=== PATIENT | male | born 1940 | race Caucasian/White ===

== ENCOUNTER → 2016-09-08 | Outpatient (CLI) | payer OTHER ==
[~2016-09-08] MED LIST: ALBU18; ASPI-231 OR; [UNRECOGNIZED DRUG - OTHER]
== END | disposition home or self-care (01) ==
LOC: XYW 10:41
PROVIDERS: ATTEND Internal Medicine Cardiovascular Disease
DX: I08.2 Rheumatic disorders of both aortic and tricuspid valves (principal); I31.3 Pericardial effusion (noninflammatory); Z95.0 Presence of cardiac pacemaker
CPT/HCPCS: 93306

== ENCOUNTER → 2016-09-08 | Outpatient (CLI) | payer OTHER ==
[2016-09-08 16:16] LABS: Basophils # (auto) 0 uL; Basophils % (auto) 0.3 % (0.0-2.0); Eosinophils # (auto) 0.4 uL; Eosinophils % (auto) 4.4 % (0.0-7.0); Hematocrit 42.5 % (41.0-53.0); Hemoglobin 14.3 g/dL (13.5-17.5); Lymphocytes # (auto) 2.4 uL; Lymphocytes % (auto) 24.4 % (10.0-50.0); Mean Corpuscular Hgb Conc. 33.5 g/dL (32.0-36.0); Mean Corpuscular Volume 86.5 fL (80.0-100.0); Mean Platelet Volume 7.2 fL (7.4-10.4); Monocytes # (auto) 0.8 uL; Monocytes % (auto) 8.1 % (0.0-12.0); Neutrophils # (auto) 6.2 uL; Neutrophils % (auto) 62.8 % (37.0-80.0); Platelet Count (auto) 262 10^3/uL (140-450); Red Cell Distribution Width 14.5 % (11.6-16.0); White Blood Cell 9.9 10^3/uL (4.4-10.8)
[2016-09-08 16:30] LABS: Urine Bilirubin Negative (Negative); Urine Blood Negative /uL (Negative); Urine Color Yellow (Yellow); Urine Ketone Negative (Negative); Urine Nitrite Negative (Negative); Urine RBC <1 /hpf (0 - 3); Urine Urobilinogen Normal (Negative)
[2016-09-08 16:31] LABS: Urine Glucose 4+ mg/dL (Normal)
[2016-09-08 16:32] LABS: Albumin 3.8 g/dL (3.4-5.0); Calcium 9.4 mg/dL (8.5-10.1); Potassium 4.2 mmol/L (3.5-5.1)
[2016-09-08 16:34] LABS: BUN/Creatinine Ratio 18.8
[2016-09-08 16:36] LABS: INR 0.94 (0.9-1.15); Partial Thromboplastin Time 26.1 sec (22.64-33.71); Prothrombin Time 10.1 sec (9.37-12.3)
[2016-09-08 16:41] LABS: Bilirubin, Total 0.6 mg/dL (0.2-1.0); Total Protein 7.9 g/dL (6.4-8.2)
== END | disposition home or self-care (01) ==
LOC: LAB 15:47
DX: H25.12 Age-related nuclear cataract, left eye (principal)
CPT/HCPCS: 36415; 80053; 81001; 85025; 85610; 85730

== ENCOUNTER 2017-05-11 10:55 | Inpatient (IN) | payer OTHER ==
[~2017-05-11] VITALS: Ht 172.7 cm; Wt 77.6 kg
[2017-05-11] MEDS ORDERED: SODIUM CHLORIDE 0.9% 2,000 ML IV ONE (11:30)
[2017-05-11 13:11] LABS: Basophils # (auto) 0 uL; Basophils % (auto) 0.2 % (0.0-2.0); Eosinophils # (auto) 0 uL; Hematocrit 52.8 % (41.0-53.0); Hemoglobin 16.8 g/dL (13.5-17.5); Lymphocytes # (auto) 1.1 uL; Lymphocytes % (auto) 9.1 % (10.0-50.0); Mean Corpuscular Hemoglobin 29.2 pg (28.0-32.0); Mean Corpuscular Hgb Conc. 31.8 g/dL (32.0-36.0); Mean Corpuscular Volume 91.7 fL (80.0-100.0); Monocytes # (auto) 0.8 uL; Monocytes % (auto) 6.2 % (0.0-12.0); Neutrophils # (auto) 10.4 uL; Neutrophils % (auto) 84.5 % (37.0-80.0); Nucleated Red Blood Cells % 0.1 %; Platelet Count (auto) 261 10^3/uL (140-450); Red Blood Cells 5.76 10^6/uL (4.5-5.90); Red Cell Distribution Width 15.2 % (11.8-14.3); White Blood Cell 12.3 10^3/uL (4.4-10.8)
[2017-05-11 13:20] LABS: INR 1.05 (0.9-1.15); Partial Thromboplastin Time 24.6 sec (22.64-33.71); Prothrombin Time 11.5 sec (9.37-12.3)
[2017-05-11 13:21] LABS: Albumin 3.8 g/dL (3.4-5.0); BUN/Creatinine Ratio 35.1; Bilirubin, Total 0.7 mg/dL (0.2-1.0); Calcium 9.9 mg/dL (8.5-10.1); Potassium 4.1 mmol/L (3.5-5.1); Total Protein 8.6 g/dL (6.4-8.2)
[2017-05-11 13:24] LABS: Lactic Acid w/Reflex 2.3 mmol/L (0.4-2.0)
[2017-05-11] MEDS ORDERED: InsuLIN R (HUMAN) 100 UNITS in SODIUM CHL 0.9% 99 ML IV SCH ×5 (14:08→14:37)
[2017-05-11] MEDS ORDERED: DEXTROSE (50%) 50ML SYRG IV PRN ×2 (14:15→14:45)
[2017-05-11 14:18] LABS: Urine Bacteria NONE SEEN /hpf (None Seen); Urine Blood Negative /uL (Negative); Urine Mucus FEW (None Seen); Urine Specific Gravity 1.029 (1.001-1.035); Urine WBC 1 /hpf (0 - 3)
[2017-05-11] MEDS ORDERED: MORPHINE SULF INJ 2 MG/ML SYRINGE 1ML IV PRN ×2 (14:45→15:00)
[2017-05-11] MEDS ORDERED: SOD CHL 0.45% 1,000 ML IV SCH (14:45)
[2017-05-11] MEDS ORDERED: ACETAMINOPHEN 500 MG TAB PO PRN (14:45)
[2017-05-11] MEDS ORDERED: TEMAZEPAM 15 MG CAP PO PRN (14:45)
[2017-05-11] MEDS ORDERED: HYDROcodone-ACET 5/325MG TAB PO PRN (14:45)
[2017-05-11] MEDS ORDERED: LORazepam 0.5 MG TAB PO PRN (14:45)
[2017-05-11] MEDS ORDERED: ALBUTEROL SULF 2.5 MG/0.5ML(0.5%) NEB SOLN NEB PRN (14:45)
[2017-05-11] MEDS ORDERED: PROMETHAZINE HCL 25 MG/ML 1ML IV PRN (14:45)
[2017-05-11] MEDS ORDERED: NITROGLYCERIN 0.4 MG SL TAB SL PRN (14:45)
[2017-05-11] MEDS ORDERED: ASPirin 81 mg TAB PO ONE (15:00)
[2017-05-11] MEDS ORDERED: ENALAPRIL MALEATE 2.5 MG TAB PO ONE (15:00)
[2017-05-11] MEDS ORDERED: ENOXAPARIN SOD 30 MG/0.3 ML SYRINGE SC ONE (15:00)
[2017-05-11] MEDS ORDERED: CARVEDILOL 3.125 MG TAB PO ONE (15:00)
[2017-05-11] MEDS: ACCU-CHEK COMFORT CURVE STRIP VI SCH ×6 (15:14→22:20)
[2017-05-11 19:38] LABS: Calcium 9.1 mg/dL (8.5-10.1)
[2017-05-11 19:41] LABS: BUN/Creatinine Ratio 38.6
[2017-05-11 19:46] LABS: Potassium 2.9 mmol/L (3.5-5.1)
[2017-05-11] MEDS: InsuLIN REG 1unit/0.01ml Soln (100units/ml) SC SCH (20:00)
[2017-05-11] MEDS ORDERED: POTASSIUM CHL 20MEQ/50ML 50 ML IV SCH (20:15)
[2017-05-11] MEDS ORDERED: SOD CHL 0.45% WITH 20MEQ KCL 1,000 ML IV ONE (20:15)
[2017-05-11] MEDS ORDERED: POTASSIUM CHLORIDE 40 MEQ in SOD CHL 0.45% 1,000 ML IV SCH (21:00)
[2017-05-11] MEDS: POTASSIUM CHL 20MEQ/50ML 50 ML IV SCH ×2 (21:05→23:32)
[2017-05-11 21:13] VITALS: BP 136/69
[2017-05-11] MEDS ORDERED: diphenhdrAMINE HCL 50 MG/1 ML VL ONE (21:38)
[2017-05-11] MEDS ORDERED: LORazepam 2MG/ML-1ML VIAL ONE (21:38)
[2017-05-11] MEDS ORDERED: LORazepam 2MG/ML-1ML VIAL IV ONE (21:45)
[2017-05-11] MEDS ORDERED: diphenhdrAMINE HCL 50 MG/1 ML VL IV ONE (21:45)
[2017-05-11] MEDS: ATORVASTATIN 20 MG TAB PO SCH (22:00)
[2017-05-11] MEDS: CARVEDILOL 3.125 MG TAB PO SCH (22:00)
[2017-05-11 22:43] LABS: BUN/Creatinine Ratio 37.8; Calcium 9.3 mg/dL (8.5-10.1); Potassium 3.5 mmol/L (3.5-5.1)
[2017-05-11] MEDS ORDERED: D5W/SOD CHL 0.45% 1,000 ML IV SCH ×2 (23:30)
[2017-05-12] MEDS: ACCU-CHEK COMFORT CURVE STRIP VI SCH ×8 (00:09→20:00)
[2017-05-12] MEDS: POTASSIUM CHL 20MEQ/50ML 50 ML IV SCH ×3 (00:15→13:02)
[2017-05-12 02:45] LABS: Basophils # (auto) 0.1 uL; Basophils % (auto) 0.5 % (0.0-2.0); Eosinophils # (auto) 0 uL; Hematocrit 45.4 % (41.0-53.0); Lymphocytes # (auto) 2.3 uL; Lymphocytes % (auto) 15.2 % (10.0-50.0); Mean Corpuscular Volume 87.8 fL (80.0-100.0); Monocytes # (auto) 1.2 uL; Monocytes % (auto) 7.9 % (0.0-12.0); Neutrophils # (auto) 11.7 uL; Neutrophils % (auto) 76.4 % (37.0-80.0); Platelet Count (auto) 212 10^3/uL (140-450); Red Blood Cells 5.17 10^6/uL (4.5-5.90); Red Cell Distribution Width 14.6 % (11.8-14.3); White Blood Cell 15.3 10^3/uL (4.4-10.8)
[2017-05-12 03:12] LABS: Alanine Aminotransferase 28 U/L (16-61); Albumin 3.2 g/dL (3.4-5.0); Alkaline Phosphatase 65 U/L (45-117); Anion Gap 8 (5-15); Aspartate Aminotransferase 18 U/L (15-37); BUN/Creatinine Ratio 45.9; Bilirubin, Total 0.9 mg/dL (0.2-1.0); Calcium 8.9 mg/dL (8.5-10.1); Carbon Dioxide 23 mmol/L (21-32); Chloride 131 mmol/L (98-107); Cholesterol 217 mg/dL (< 200); GFR African American 46 mL/min; GFR Non-African American 38 mL/min; Glucose 214 mg/dL (74-106); HDL Cholesterol 41 mg/dL (40-59); Potassium 3.2 mmol/L (3.5-5.1); Total Protein 7.1 g/dL (6.4-8.2); Triglycerides 426 mg/dL (< 150)
[2017-05-12 03:17] LABS: Blood Urea Nitrogen 85 mg/dL (7-18); Sodium 162 mmol/L (136-145)
[2017-05-12] MEDS ORDERED: DEXTROSE (50%) 50ML SYRG IV PRN (03:45)
[2017-05-12] MEDS ORDERED: SOD CHL 0.45% 1,000 ML IV SCH (03:45)
[2017-05-12] MEDS ORDERED: LORazepam 2MG/ML-1ML VIAL ONE (04:45)
[2017-05-12] MEDS ORDERED: diphenhdrAMINE HCL 50 MG/1 ML VL ONE (04:45)
[2017-05-12] MEDS ORDERED: POTASSIUM CHL 10% (20 MEQ/15ML) 15ml ORAL SOLN PO ONE ×2 (04:45→11:00)
[2017-05-12] MEDS ORDERED: diphenhdrAMINE HCL 50 MG/1 ML VL IV ONE (05:00)
[2017-05-12] MEDS ORDERED: LORazepam 2MG/ML-1ML VIAL IV ONE (05:00)
[2017-05-12] MEDS ORDERED: HALOPERIDOL LACTATE 5 MG/ML INJ VIAL IM ONE (05:15)
[2017-05-12] MEDS: InsuLIN REG 1unit/0.01ml Soln (100units/ml) SC SCH ×5 (05:17→16:04)
[2017-05-12] MEDS: D5W 5% 1,000 ML IV SCH ×3 (05:25→20:45)
[2017-05-12] MEDS ORDERED: POTASSIUM CHL 20MEQ/50ML 50 ML IV ONE (05:45)
[2017-05-12 06:22] LABS: Potassium 3.1 mmol/L (3.5-5.1)
[2017-05-12 06:27] LABS: BUN/Creatinine Ratio 41.1; Calcium 8.8 mg/dL (8.5-10.1)
[2017-05-12] MEDS ORDERED: ENOXAPARIN SOD 30 MG/0.3 ML SYRINGE SC SCH (10:00)
[2017-05-12] MEDS ORDERED: ENOXAPARIN SOD 40 MG/0.4 ML SYRINGE SC SCH (10:00)
[2017-05-12] MEDS: ASPirin 81 mg TAB PO SCH (10:45)
[2017-05-12] MEDS: CARVEDILOL 3.125 MG TAB PO SCH ×2 (10:45→22:37)
[2017-05-12] MEDS: ENALAPRIL MALEATE 2.5 MG TAB PO SCH (10:46)
[2017-05-12] MEDS: ENOXAPARIN SOD 40 MG/0.4 ML SYRINGE SC SCH (10:46)
[2017-05-12] MEDS ORDERED: cefTRIAXone 1GM/10ml IVPUSH 10 ML IV ONE (11:00)
[2017-05-12 11:28] LABS: BUN/Creatinine Ratio 40.2; Calcium 8.5 mg/dL (8.5-10.1)
[2017-05-12 16:27] LABS: Potassium 3.7 mmol/L (3.5-5.1)
[2017-05-12 16:28] LABS: Calcium 8.7 mg/dL (8.5-10.1)
[2017-05-12] MEDS ORDERED: LOVA40TA72 (17:28)
[2017-05-12] MEDS ORDERED: RAMI5CAP40 (17:28)
[2017-05-12] MEDS ORDERED: METF-370 (17:28)
[2017-05-12] MEDS ORDERED: GLIP-115 (17:28)
[2017-05-12] MEDS ORDERED: CARV3.1240 (17:28)
[2017-05-12] MEDS ORDERED: BAC09TP (17:28)
[2017-05-12] MEDS ORDERED: HCTZ25T (17:28)
[2017-05-12] MEDS ORDERED: DOXY100C2 (17:28)
[2017-05-12 17:50] VITALS: BP 144/58
[2017-05-12] MEDS: FREE WATER PO SCH ×2 (18:00→22:00)
[2017-05-12 19:00] LABS: BUN/Creatinine Ratio 35.1; Calcium 8.7 mg/dL (8.5-10.1); Potassium 3.7 mmol/L (3.5-5.1)
[2017-05-12 22:00] VITALS: BP_SYST 132; BP_DIAS 61; BP_DIAS 89
[2017-05-12] MEDS: ATORVASTATIN 20 MG TAB PO SCH (22:00)
[2017-05-12 22:24] LABS: BUN/Creatinine Ratio 36.9; Calcium 8.9 mg/dL (8.5-10.1)
[2017-05-13 02:16] LABS: BUN/Creatinine Ratio 37.9; Potassium 3.8 mmol/L (3.5-5.1)
[2017-05-13] MEDS: D5W 5% 1,000 ML IV SCH ×3 (03:58→20:29)
[2017-05-13] MEDS: ACCU-CHEK COMFORT CURVE STRIP VI SCH ×6 (04:00→20:29)
[2017-05-13] MEDS: InsuLIN REG 1unit/0.01ml Soln (100units/ml) SC SCH ×5 (04:00→20:29)
[2017-05-13 05:00] VITALS: BP 128/56
[2017-05-13] MEDS: FREE WATER PO SCH ×5 (06:42→22:35)
[2017-05-13 09:00] VITALS: BP 141/67
[2017-05-13] MEDS: ASPirin 81 mg TAB PO SCH (09:37)
[2017-05-13] MEDS: ENOXAPARIN SOD 40 MG/0.4 ML SYRINGE SC SCH (09:37)
[2017-05-13] MEDS: cefTRIAXone 1GM/10ml IVPUSH 10 ML IV SCH (09:38)
[2017-05-13] MEDS: ENALAPRIL MALEATE 2.5 MG TAB PO SCH (09:38)
[2017-05-13] MEDS: CARVEDILOL 3.125 MG TAB PO SCH ×2 (09:39→22:35)
[2017-05-13 10:17] LABS: Calcium 8.7 mg/dL (8.5-10.1); Potassium 4.2 mmol/L (3.5-5.1)
[2017-05-13] MEDS ORDERED: DEXTROSE (50%) 50ML SYRG IV PRN (10:30)
[2017-05-13] MEDS: INSULIN DETEMIR(LEVEMIR) 1unit/0.01ml Soln (100units/ml) SC SCH ×2 (10:45→22:43)
[2017-05-13 13:00] VITALS: BP 133/58
[2017-05-13 14:37] LABS: BUN/Creatinine Ratio 33.1; Calcium 8.9 mg/dL (8.5-10.1); Potassium 4.2 mmol/L (3.5-5.1)
[2017-05-13 17:10] VITALS: BP 135/60
[2017-05-13 18:29] LABS: BUN/Creatinine Ratio 38.6; Potassium 3.8 mmol/L (3.5-5.1)
[2017-05-13 22:00] VITALS: BP 146/46
[2017-05-13] MEDS: ATORVASTATIN 20 MG TAB PO SCH (22:36)
[2017-05-13 22:42] LABS: BUN/Creatinine Ratio 35.8; Calcium 8.5 mg/dL (8.5-10.1); Potassium 3.9 mmol/L (3.5-5.1)
[2017-05-14] MEDS: InsuLIN REG 1unit/0.01ml Soln (100units/ml) SC SCH ×7 (00:22→23:38)
[2017-05-14] MEDS: ACCU-CHEK COMFORT CURVE STRIP VI SCH ×7 (01:51→23:38)
[2017-05-14 01:59] VITALS: BP 123/53
[2017-05-14] MEDS: FREE WATER PO SCH ×6 (02:25→22:01)
[2017-05-14] MEDS: D5W 5% 1,000 ML IV SCH (04:45)
[2017-05-14 04:58] VITALS: BP 128/60
[2017-05-14] MEDS: INSULIN DETEMIR(LEVEMIR) 1unit/0.01ml Soln (100units/ml) SC SCH (06:41)
[2017-05-14 08:36] LABS: Albumin 2.7 g/dL (3.4-5.0); BUN/Creatinine Ratio 33.9; Calcium 8.7 mg/dL (8.5-10.1); Potassium 4.1 mmol/L (3.5-5.1)
[2017-05-14 08:39] LABS: Bilirubin, Total 0.8 mg/dL (0.2-1.0); Total Protein 6.7 g/dL (6.4-8.2)
[2017-05-14 08:56] LABS: Basophils # (auto) 0 uL; Basophils % (auto) 0.1 % (0.0-2.0); Eosinophils # (auto) 0.2 uL; Eosinophils % (auto) 1.5 % (0.0-7.0); Hematocrit 42.4 % (41.0-53.0); Lymphocytes # (auto) 1.3 uL; Monocytes # (auto) 0.5 uL; Neutrophils # (auto) 8.1 uL; Neutrophils % (auto) 80.4 % (37.0-80.0); Nucleated Red Blood Cells % 0.1 %; Platelet Count (auto) 124 10^3/uL (140-450); Red Blood Cells 4.82 10^6/uL (4.5-5.90); White Blood Cell 10.1 10^3/uL (4.4-10.8)
[2017-05-14 09:47] VITALS: BP 155/78
[2017-05-14] MEDS: ASPirin 81 mg TAB PO SCH (10:58)
[2017-05-14] MEDS: ENOXAPARIN SOD 40 MG/0.4 ML SYRINGE SC SCH (10:58)
[2017-05-14] MEDS: ENALAPRIL MALEATE 2.5 MG TAB PO SCH (10:58)
[2017-05-14] MEDS: CARVEDILOL 3.125 MG TAB PO SCH ×2 (10:59→22:02)
[2017-05-14] MEDS: cefTRIAXone 1GM/10ml IVPUSH 10 ML IV SCH (10:59)
[2017-05-14 12:35] VITALS: BP 131/66
[2017-05-14] MEDS: SOD CHL 0.45% 1,000 ML IV SCH ×2 (17:04→21:00)
[2017-05-14 17:07] VITALS: BP 127/59
[2017-05-14] MEDS: INSULIN 70/30 1unit/0.01ml Susp (100units/ml) SC SCH (17:25)
[2017-05-14 22:00] VITALS: BP 130/59
[2017-05-14] MEDS: ATORVASTATIN 20 MG TAB PO SCH (22:02)
[2017-05-15] MEDS: FREE WATER PO SCH ×5 (01:37→18:00)
[2017-05-15] MEDS: ACCU-CHEK COMFORT CURVE STRIP VI SCH ×4 (03:39→15:53)
[2017-05-15] MEDS: InsuLIN REG 1unit/0.01ml Soln (100units/ml) SC SCH ×4 (03:40→15:53)
[2017-05-15] MEDS: SOD CHL 0.45% 1,000 ML IV SCH ×2 (04:22→17:00)
[2017-05-15 05:00] VITALS: BP 108/60
[2017-05-15 07:58] LABS: Basophils # (auto) 0 uL; Basophils % (auto) 0.2 % (0.0-2.0); Eosinophils # (auto) 0.3 uL; Eosinophils % (auto) 4.3 % (0.0-7.0); Hematocrit 38.9 % (41.0-53.0); Hemoglobin 12.9 g/dL (13.5-17.5); Lymphocytes # (auto) 1.7 uL; Lymphocytes % (auto) 22.2 % (10.0-50.0); Mean Corpuscular Hemoglobin 29.2 pg (28.0-32.0); Mean Corpuscular Hgb Conc. 33.2 g/dL (32.0-36.0); Mean Corpuscular Volume 88.2 fL (80.0-100.0); Monocytes # (auto) 0.5 uL; Monocytes % (auto) 6.6 % (0.0-12.0); Neutrophils # (auto) 5.1 uL; Neutrophils % (auto) 66.7 % (37.0-80.0); Nucleated Red Blood Cells % 0.1 %; Platelet Count (auto) 94 10^3/uL (140-450); Red Blood Cells 4.41 10^6/uL (4.5-5.90); Red Cell Distribution Width 14.4 % (11.8-14.3); White Blood Cell 7.7 10^3/uL (4.4-10.8)
[2017-05-15 08:00] VITALS: BP 131/65
[2017-05-15 08:07] LABS: Calcium 7.7 mg/dL (8.5-10.1); Potassium 3.9 mmol/L (3.5-5.1)
[2017-05-15 08:29] LABS: BUN/Creatinine Ratio 29.5
[2017-05-15] MEDS: INSULIN 70/30 1unit/0.01ml Susp (100units/ml) SC SCH ×2 (08:48→18:00)
[2017-05-15] MEDS: cefTRIAXone 1GM/10ml IVPUSH 10 ML IV SCH (09:04)
[2017-05-15] MEDS: ENALAPRIL MALEATE 2.5 MG TAB PO SCH (09:05)
[2017-05-15] MEDS: CARVEDILOL 3.125 MG TAB PO SCH (09:05)
[2017-05-15] MEDS: ENOXAPARIN SOD 40 MG/0.4 ML SYRINGE SC SCH (09:15)
[2017-05-15] MEDS: ASPirin 81 mg TAB PO SCH (09:18)
[2017-05-15] MEDS ORDERED: MULTIPLE VITAMIN TAB PO SCH (10:00)
[2017-05-15] MEDS ORDERED: ASCORBIC ACID 500 MG TAB PO SCH (10:00)
[2017-05-15 12:00] VITALS: BP 125/56
[2017-05-15 15:56] VITALS: BP 125/56
== END 2017-05-15 18:15 | disposition home or self-care (01) | DRG 871 ==
LOC: ER 10:55 → EDBD 10:55 → TELE 10:56 → TELE-WESTW 05-12 17:35
PROVIDERS: ADMIT Internal Medicine; ATTEND Internal Medicine
DX: A41.9 Sepsis, unspecified organism (principal); G93.41 Metabolic encephalopathy; E11.10 Type 2 diabetes mellitus with ketoacidosis without coma; N17.9 Acute kidney failure, unspecified; J96.10 Chronic respiratory failure, unspecified whether with hypoxia or hypercapnia; J18.9 Pneumonia, unspecified organism; E11.21 Type 2 diabetes mellitus with diabetic nephropathy; E11.40 Type 2 diabetes mellitus with diabetic neuropathy, unspecified; E87.0 Hyperosmolality and hypernatremia; E87.1 Hypo-osmolality and hyponatremia; I42.9 Cardiomyopathy, unspecified; I47.1 Supraventricular tachycardia; E78.5 Hyperlipidemia, unspecified; E86.0 Dehydration; I11.0 Hypertensive heart disease with heart failure; I25.10 Atherosclerotic heart disease of native coronary artery without angina pectoris; I35.1 Nonrheumatic aortic (valve) insufficiency; B34.9 Viral infection, unspecified; J20.9 Acute bronchitis, unspecified; I50.9 Heart failure, unspecified; F41.9 Anxiety disorder, unspecified; G47.00 Insomnia, unspecified; I35.0 Nonrheumatic aortic (valve) stenosis; I70.0 Atherosclerosis of aorta; J44.9 Chronic obstructive pulmonary disease, unspecified; Z79.4 Long term (current) use of insulin; Z82.49 Family history of ischemic heart disease and other diseases of the circulatory system; Z83.3 Family history of diabetes mellitus; Z85.828 Personal history of other malignant neoplasm of skin; Z87.891 Personal history of nicotine dependence; Z99.81 Dependence on supplemental oxygen; Z88.0 Allergy status to penicillin; Z91.018 Allergy to other foods; Z79.899 Other long term (current) drug therapy; Z80.8 Family history of malignant neoplasm of other organs or systems; Z95.810 Presence of automatic (implantable) cardiac defibrillator
CPT/HCPCS: 36415; 36600; 70450; 71045; 80048; 80053; 80061; 81001; 82550; 82805; 82962; 83036; 83605; 83735; 83880; 83930; 84443; 84484; 85025; 85610; 85730; 87040; 87086; 93005; 93306; 94640; 94761; 96361; 96365; J1815; J3480

== ENCOUNTER 2017-06-04 14:16 | Emergency (ER) | payer OTHER ==
[~2017-06-04] VITALS: Ht 172.7 cm; Wt 79.4 kg
[~2017-06-04 14:16] MED LIST changes: +BAC09TP; +CARV3.1240; +DOXY100C2; +GLIP-115; +HCTZ25T; +LOVA40TA72; +METF-370; +RAMI5CAP40
[2017-06-04 15:51] LABS: Basophils # (auto) 0 uL; Basophils % (auto) 0.3 % (0.0-2.0); Eosinophils # (auto) 0.1 uL; Eosinophils % (auto) 1.5 % (0.0-7.0); Hematocrit 42.6 % (41.0-53.0); Hemoglobin 14.9 g/dL (13.5-17.5); Lymphocytes # (auto) 2.1 uL; Lymphocytes % (auto) 22.7 % (10.0-50.0); Mean Corpuscular Hemoglobin 29.9 pg (28.0-32.0); Mean Corpuscular Hgb Conc. 35.1 g/dL (32.0-36.0); Mean Corpuscular Volume 85.2 fL (80.0-100.0); Monocytes # (auto) 0.6 uL; Monocytes % (auto) 6.2 % (0.0-12.0); Neutrophils # (auto) 6.3 uL; Neutrophils % (auto) 69.3 % (37.0-80.0); Nucleated Red Blood Cells % 0.2 %; Platelet Count (auto) 221 10^3/uL (140-450); Red Blood Cells 4.99 10^6/uL (4.5-5.90); Red Cell Distribution Width 14.9 % (11.8-14.3); White Blood Cell 9.1 10^3/uL (4.4-10.8)
[2017-06-04] MEDS ORDERED: SODIUM CHLORIDE 0.9% 1,000 ML IV ONE ×2 (15:57→16:21)
[2017-06-04 16:11] LABS: BUN/Creatinine Ratio 23.1; Calcium 9.6 mg/dL (8.5-10.1); Potassium 4.5 mmol/L (3.5-5.1)
[2017-06-04 16:33] LABS: Magnesium 2.5 mg/dL (1.6-2.6)
[2017-06-04 17:05] LABS: Urine Bacteria NONE SEEN /hpf (None Seen); Urine Blood Negative /uL (Negative); Urine Specific Gravity 1.033 (1.001-1.035); Urine WBC <1 /hpf (0 - 3)
[2017-06-04] MEDS ORDERED: InsuLIN REG 1unit/0.01ml Soln (100units/ml) IV ONE (17:45)
[2017-06-04] MEDS ORDERED: NovoloG Insulin 1unit/0.01ml Soln (100units/ml) SC ONE (17:45)
[2017-06-04 19:25] VITALS: BP 118/57
== END 2017-06-04 20:47 | disposition home or self-care (01) ==
LOC: ER 14:16
DX: I11.0 Hypertensive heart disease with heart failure (principal); E11.65 Type 2 diabetes mellitus with hyperglycemia; I50.9 Heart failure, unspecified; J44.9 Chronic obstructive pulmonary disease, unspecified; Z95.0 Presence of cardiac pacemaker; Z88.0 Allergy status to penicillin; Z91.018 Allergy to other foods; Z79.899 Other long term (current) drug therapy; Z79.4 Long term (current) use of insulin; Z87.891 Personal history of nicotine dependence
CPT/HCPCS: 36415; 71046; 80053; 81001; 82962; 83735; 84443; 84484; 85025; 93005; 96361; 96372; 96374; 99285; J1815; J7030

== ENCOUNTER → 2018-05-11 | Outpatient (CLI) | payer OTHER ==
[2018-05-11 09:03] LABS: Basophils # (auto) 0 uL; Basophils % (auto) 0.3 % (0.0-2.0); Eosinophils # (auto) 0.2 uL; Eosinophils % (auto) 2.6 % (0.0-7.0); Hematocrit 46.3 % (41.0-53.0); Hemoglobin 15.5 g/dL (13.5-17.5); Lymphocytes % (auto) 23.8 % (10.0-50.0); Mean Corpuscular Hemoglobin 28.9 pg (28.0-32.0); Mean Corpuscular Hgb Conc. 33.5 g/dL (32.0-36.0); Mean Corpuscular Volume 86.3 fL (80.0-100.0); Monocytes # (auto) 0.5 uL; Monocytes % (auto) 5.9 % (0.0-12.0); Neutrophils # (auto) 5.6 uL; Neutrophils % (auto) 67.4 % (37.0-80.0); Nucleated Red Blood Cells % 0.1 %; Platelet Count (auto) 248 10^3/uL (140-450); Red Blood Cells 5.37 10^6/uL (4.5-5.90); Red Cell Distribution Width 14.8 % (11.8-14.3); White Blood Cell 8.4 10^3/uL (4.4-10.8)
[2018-05-11 09:39] LABS: Albumin 3.5 g/dL (3.4-5.0); Calcium 9.3 mg/dL (8.5-10.1); Potassium 4.4 mmol/L (3.5-5.1)
[2018-05-11 09:44] LABS: BUN/Creatinine Ratio 17.5
[2018-05-11 09:45] LABS: Bilirubin, Total 0.8 mg/dL (0.2-1.0); Total Protein 8.1 g/dL (6.4-8.2)
== END | disposition home or self-care (01) ==
LOC: LAB 08:41
DX: E11.65 Type 2 diabetes mellitus with hyperglycemia (principal); I11.0 Hypertensive heart disease with heart failure; I50.9 Heart failure, unspecified; J44.9 Chronic obstructive pulmonary disease, unspecified
CPT/HCPCS: 36415; 80053; 80061; 82043; 83036; 85025

== ENCOUNTER 2018-06-01 15:18 | Inpatient (IN) | payer OTHER ==
[~2018-06-01] VITALS: Ht 167.6 cm; Wt 74.2 kg
[2018-06-01] MEDS ORDERED: ALBUTEROL SULF 2.5 MG/0.5ML(0.5%) NEB SOLN NEB ONE (15:30)
[2018-06-01] MEDS ORDERED: IPRATROPIUM BROM 0.5 MG/2.5ML INH SOL NEB ONE (15:30)
[2018-06-01] MEDS ORDERED: methylPREDNISolone SOD SUCC 125 MG/2 ML VL IV ONE (15:30)
[2018-06-01 15:54] LABS: Basophils # (auto) 0 uL; Basophils % (auto) 0.2 % (0.0-2.0); Eosinophils # (auto) 0 uL; Eosinophils % (auto) 0.2 % (0.0-7.0); Hematocrit 46.5 % (41.0-53.0); Hemoglobin 15.7 g/dL (13.5-17.5); Lymphocytes # (auto) 1.2 uL; Lymphocytes % (auto) 9.7 % (10.0-50.0); Mean Corpuscular Hemoglobin 28.7 pg (28.0-32.0); Mean Corpuscular Hgb Conc. 33.8 g/dL (32.0-36.0); Mean Corpuscular Volume 84.8 fL (80.0-100.0); Monocytes # (auto) 0.7 uL; Monocytes % (auto) 5.4 % (0.0-12.0); Neutrophils # (auto) 10.7 uL; Neutrophils % (auto) 84.5 % (37.0-80.0); Nucleated Red Blood Cells % 0.1 %; Platelet Count (auto) 238 10^3/uL (140-450); Red Blood Cells 5.49 10^6/uL (4.5-5.90); Red Cell Distribution Width 14.4 % (11.8-14.3); White Blood Cell 12.7 10^3/uL (4.4-10.8)
[2018-06-01 16:03] LABS: Alanine Aminotransferase 28 U/L (16-61); Albumin 3.5 g/dL (3.4-5.0); Aspartate Aminotransferase 53 U/L (15-37); BUN/Creatinine Ratio 13.7; Blood Urea Nitrogen 16 mg/dL (7-18); Calcium 8.9 mg/dL (8.5-10.1); Carbon Dioxide 26 mmol/L (21-32); GFR African American > 60 mL/min; GFR Non-African American > 60 mL/min; Glucose 232 mg/dL (74-106); INR 0.94 (0.9-1.15); Partial Thromboplastin Time 29.1 sec (23.78-33.04); Prothrombin Time 10.1 sec (9.27-12.13)
[2018-06-01 16:06] LABS: Alkaline Phosphatase 91 U/L (45-117); Anion Gap 8 (5-15); Bilirubin, Total 0.5 mg/dL (0.2-1.0); Chloride 103 mmol/L (98-107); Potassium 4.5 mmol/L (3.5-5.1); Sodium 137 mmol/L (136-145); Total Protein 8.1 g/dL (6.4-8.2)
[2018-06-01] MEDS ORDERED: ASPirin 81 mg TAB PO ONE (16:15)
[2018-06-01] MEDS ORDERED: LEVOFLOXACIN 500MG 100 ML IV ONE (16:15)
[2018-06-01] MEDS ORDERED: ENOXAPARIN SOD 80 MG/0.8ML SYRINGE SC ONE (16:15)
[2018-06-01] MEDS ORDERED: NITROGLYCERIN 0.4 MG SL TAB SL PRN (16:45)
[2018-06-01] MEDS ORDERED: ACETAMINOPHEN 500 MG TAB PO PRN (16:45)
[2018-06-01] MEDS ORDERED: HYDROcodone-ACET 5/325MG TAB PO PRN (16:45)
[2018-06-01] MEDS ORDERED: LORazepam 0.5 MG TAB PO PRN (16:45)
[2018-06-01] MEDS ORDERED: TEMAZEPAM 15 MG CAP PO PRN (16:45)
[2018-06-01] MEDS ORDERED: CARVEDILOL 3.125 MG TAB PO ONE (16:45)
[2018-06-01] MEDS ORDERED: LACTULOSE 20Gm/30ML SOLN PO PRN ×2 (16:45)
[2018-06-01] MEDS ORDERED: DEXTROSE (50%) 50ML SYRG IV PRN (16:45)
[2018-06-01] MEDS ORDERED: PROMETHAZINE HCL 25 MG/ML 1ML IV PRN (16:45)
[2018-06-01] MEDS ORDERED: ALBUTEROL SULF 2.5 MG/0.5ML(0.5%) NEB SOLN NEB PRN (16:45)
[2018-06-01] MEDS ORDERED: MORPHINE SULFATE 4 MG/ML SYR/VIAL IV PRN ×2 (16:45)
[2018-06-01 16:54] LABS: Lactic Acid w/Reflex 2.8 mmol/L (0.4-2.0)
[2018-06-01] MEDS ORDERED: methylPREDNISolone SOD SUCC 40 MG/ML VL IV SCH (17:00)
[2018-06-01] MEDS ORDERED: OSELTAMIVIR 75 MG CAP PO ONE (17:00)
[2018-06-01] MEDS: IPRATROPIUM BROM 0.5 MG/2.5ML INH SOL NEB SCH (18:00)
[2018-06-01] MEDS: glipiZIDE 5 MG TAB PO SCH (18:00)
[2018-06-01] MEDS: ALBUTEROL SULF 2.5 MG/0.5ML(0.5%) NEB SOLN NEB SCH (18:00)
[2018-06-01 19:15] LABS: Urine Bacteria NONE SEEN /hpf (None Seen); Urine Blood 1+ /uL (Negative); Urine Hyaline Cast FEW /lpf (0 - 2); Urine WBC 1 /hpf (0 - 3)
[2018-06-01] MEDS ORDERED: CARVEDILOL 12.5 MG TAB PO ONE (19:30)
[2018-06-01] MEDS ORDERED: METOPROLOL TARTRATE 1MG/1ML-5ML VIAL IV ONE (20:00)
[2018-06-01] MEDS: ACCU-CHEK COMFORT CURVE STRIP VI SCH (20:15)
[2018-06-01] MEDS: InsuLIN REG 1unit/0.01ml Soln (100units/ml) SC SCH (20:24)
[2018-06-01 20:46] VITALS: BP 160/63
[2018-06-01] MEDS: FUROSEMIDE 40 MG/4 ML VIAL IV SCH (21:00)
[2018-06-01] MEDS: SODIUM CHLOR 0.9% PF (SALINE LOCK) 10ML VIAL/SYR IV SCH (21:45)
[2018-06-01] MEDS: CARVEDILOL 3.125 MG TAB PO SCH (21:45)
[2018-06-01] MEDS: ATORVASTATIN 20 MG TAB PO SCH (21:47)
[2018-06-01] MEDS: ENOXAPARIN SOD 80 MG/0.8ML SYRINGE SC SCH (21:48)
[2018-06-02] MEDS: ACCU-CHEK COMFORT CURVE STRIP VI SCH ×7 (00:40→22:00)
[2018-06-02] MEDS: InsuLIN REG 1unit/0.01ml Soln (100units/ml) SC SCH ×7 (00:40→22:00)
[2018-06-02 05:50] LABS: Basophils # (auto) 0 uL; Basophils % (auto) 0.1 % (0.0-2.0); Eosinophils # (auto) 0 uL; Hemoglobin 14.2 g/dL (13.5-17.5); Lymphocytes # (auto) 1.2 uL; Lymphocytes % (auto) 9.9 % (10.0-50.0); Mean Corpuscular Hemoglobin 29.1 pg (28.0-32.0); Mean Corpuscular Hgb Conc. 34.7 g/dL (32.0-36.0); Mean Corpuscular Volume 83.9 fL (80.0-100.0); Monocytes # (auto) 0.3 uL; Monocytes % (auto) 2.6 % (0.0-12.0); Neutrophils # (auto) 10.2 uL; Neutrophils % (auto) 87.4 % (37.0-80.0); Nucleated Red Blood Cells % 0.1 %; Platelet Count (auto) 226 10^3/uL (140-450); Red Blood Cells 4.89 10^6/uL (4.5-5.90); Red Cell Distribution Width 14.6 % (11.8-14.3); White Blood Cell 11.7 10^3/uL (4.4-10.8)
[2018-06-02 05:54] LABS: Albumin 3.1 g/dL (3.4-5.0); Anion Gap 5 (5-15); Blood Urea Nitrogen 21 mg/dL (7-18); Calcium 8.9 mg/dL (8.5-10.1); Carbon Dioxide 27 mmol/L (21-32); Chloride 106 mmol/L (98-107); Glucose 86 mg/dL (74-106); Potassium 3.9 mmol/L (3.5-5.1); Sodium 138 mmol/L (136-145)
[2018-06-02 05:59] LABS: Alanine Aminotransferase 31 U/L (16-61); Alkaline Phosphatase 68 U/L (45-117); Aspartate Aminotransferase 118 U/L (15-37); BUN/Creatinine Ratio 20.4; Bilirubin, Total 0.7 mg/dL (0.2-1.0); Cholesterol 233 mg/dL (< 200); GFR African American > 60 mL/min; GFR Non-African American > 60 mL/min; HDL Cholesterol 58 mg/dL (40-59); LDL Cholesterol 161 mg/dL (< 100); Total Protein 7.2 g/dL (6.4-8.2); Triglycerides 107 mg/dL (< 150)
[2018-06-02] MEDS: FUROSEMIDE 40 MG/4 ML VIAL IV SCH ×2 (06:00→17:50)
[2018-06-02] MEDS: SODIUM CHLOR 0.9% PF (SALINE LOCK) 10ML VIAL/SYR IV SCH ×3 (06:05→22:00)
[2018-06-02] MEDS: IPRATROPIUM BROM 0.5 MG/2.5ML INH SOL NEB SCH ×5 (06:17→23:24)
[2018-06-02] MEDS: ALBUTEROL SULF 2.5 MG/0.5ML(0.5%) NEB SOLN NEB SCH ×5 (06:17→23:24)
[2018-06-02] MEDS ORDERED: IODIXANOL 320MG/ML 100ML BTL IV ONE (07:47)
[2018-06-02] MEDS ORDERED: LIDOCAINE 2%HCL (LOCAL ANESTH.) INJ 20ML MDV ONE (07:47)
[2018-06-02] MEDS ORDERED: ANGIOMAX 250 MG VIAL IV ONE (08:25)
[2018-06-02] MEDS ORDERED: MIDAZOLAM HCL 1MG/1ML-2 ML VIAL ONE (08:26)
[2018-06-02] MEDS ORDERED: SODIUM CHL 0.9% 50 ML ONE ×2 (08:26→08:48)
[2018-06-02] MEDS ORDERED: fentaNYL CITRATE 100 MCG/2 ML VL ONE (08:26)
[2018-06-02] MEDS ORDERED: IOHEXOL 350 MG/ML 100ML IJ ONE (08:29)
[2018-06-02] MEDS ORDERED: ASPirin 325 MG TAB ONE (09:31)
[2018-06-02] MEDS ORDERED: CLOPIDOGREL 300 MG TAB ONE (09:31)
[2018-06-02] MEDS: ENOXAPARIN SOD 80 MG/0.8ML SYRINGE SC SCH ×2 (10:00→21:46)
[2018-06-02] MEDS ORDERED: OSELTAMIVIR 30 MG CAP PO SCH (10:00)
[2018-06-02] MEDS: ASPirin 81 mg TAB PO SCH (10:00)
[2018-06-02] MEDS: CARVEDILOL 3.125 MG TAB PO SCH ×3 (10:00→22:00)
[2018-06-02] MEDS ORDERED: NITROGLYCERIN 0.2MG/HR TOPICAL PATCH TD SCH (10:00)
[2018-06-02] MEDS: POTASSIUM CHL 20 Meq TABLET PO SCH (12:14)
[2018-06-02] MEDS: glipiZIDE 5 MG TAB PO SCH ×2 (12:14→17:51)
[2018-06-02] MEDS: PANTOPRAZOLE 40 MG TAB PO SCH (12:15)
[2018-06-02] MEDS: LISINOPRIL 5 MG TAB PO SCH (12:16)
[2018-06-02] MEDS: LEVOFLOXACIN 500MG 100 ML IV SCH (12:17)
[2018-06-02 13:00] VITALS: BP 153/76
[2018-06-02] MEDS ORDERED: DEXTROSE (50%) 50ML SYRG IV PRN (13:30)
[2018-06-02 17:00] VITALS: BP 118/57
--- NOTE | 2018-06-02 20:00 | NUR ---
Opening Shift Note Assumed care of patient, awake and alert, oriented x4. No S/S of distress/SOB or pain. Right groin dsg clean, dry, intact, pulse palpable. Instructed on POC, verbalized understanding. Side rails up x2, bed in lowest locked position, non skid socks on. Instructed to call for assist PRN, call light within reach, will continue to monitor for changes Q1hr and PRN.
[2018-06-02 22:00] VITALS: BP 132/59
[2018-06-02] MEDS: ATORVASTATIN 20 MG TAB PO SCH (22:00)
--- NOTE | 2018-06-02 23:24 | NUR ---
RT NOTE PT REQUESTED NOT TO BE WAKEN UP AT 0000 FOR A TX.
--- NOTE | 2018-06-03 04:18 | NUR ---
REPORT GIVEN TO ANGELIC FISCHER.
--- NOTE | 2018-06-03 04:20 | NUR ---
REPORT REPORT RECEIVED FROM MIMI, PATIENT RESTING IN BED NO DISTRESS NOTED, BED IN LOWEST POSITION, SIDE RAILS UP X2 CALL LIGHT WITHIN REACH. WILL CONTINUE TO MONITOR AND INITIATE POC.
[2018-06-03 05:34] VITALS: BP 127/65
[2018-06-03] MEDS: SODIUM CHLOR 0.9% PF (SALINE LOCK) 10ML VIAL/SYR IV SCH ×3 (05:55→22:43)
[2018-06-03] MEDS: ACCU-CHEK COMFORT CURVE STRIP VI SCH ×4 (06:15→22:44)
[2018-06-03] MEDS: FUROSEMIDE 40 MG/4 ML VIAL IV SCH ×2 (06:31→17:08)
[2018-06-03] MEDS: InsuLIN REG 1unit/0.01ml Soln (100units/ml) SC SCH ×4 (06:32→22:57)
[2018-06-03] MEDS: glipiZIDE 5 MG TAB PO SCH ×2 (06:32→17:09)
[2018-06-03 06:45] LABS: Albumin 3.2 g/dL (3.4-5.0); BUN/Creatinine Ratio 23.3; Calcium 8.6 mg/dL (8.5-10.1); Magnesium 2.3 mg/dL (1.6-2.6); Potassium 4.6 mmol/L (3.5-5.1)
[2018-06-03 06:50] LABS: Bilirubin, Total 1.4 mg/dL (0.2-1.0)
--- NOTE | 2018-06-03 06:56 | NUR ---
LAB TROP 8.91, TRENDING DOWN FROM 13.9. WILL CONTINUE TO MONITOR
[2018-06-03] MEDS: IPRATROPIUM BROM 0.5 MG/2.5ML INH SOL NEB SCH ×3 (07:41→18:57)
[2018-06-03] MEDS: ALBUTEROL SULF 2.5 MG/0.5ML(0.5%) NEB SOLN NEB SCH ×3 (07:41→18:57)
[2018-06-03 07:56] LABS: Basophils # (auto) 0 uL; Basophils % (auto) 0.1 % (0.0-2.0); Eosinophils # (auto) 0.1 uL; Eosinophils % (auto) 0.8 % (0.0-7.0); Hematocrit 41.7 % (41.0-53.0); Hemoglobin 14.2 g/dL (13.5-17.5); Lymphocytes # (auto) 2.1 uL; Lymphocytes % (auto) 17.3 % (10.0-50.0); Mean Corpuscular Hemoglobin 28.9 pg (28.0-32.0); Mean Corpuscular Hgb Conc. 34.1 g/dL (32.0-36.0); Mean Corpuscular Volume 84.6 fL (80.0-100.0); Monocytes # (auto) 0.9 uL; Monocytes % (auto) 7.7 % (0.0-12.0); Neutrophils % (auto) 74.1 % (37.0-80.0); Platelet Count (auto) 202 10^3/uL (140-450); Red Blood Cells 4.93 10^6/uL (4.5-5.90); Red Cell Distribution Width 14.6 % (11.8-14.3); White Blood Cell 12.1 10^3/uL (4.4-10.8)
[2018-06-03 09:00] VITALS: BP 138/63
[2018-06-03] MEDS: ASPirin 81 mg TAB PO SCH (10:59)
[2018-06-03] MEDS: POTASSIUM CHL 20 Meq TABLET PO SCH (10:59)
[2018-06-03] MEDS: LEVOFLOXACIN 500MG 100 ML IV SCH (10:59)
[2018-06-03] MEDS: CLOPIDOGREL BISULFATE 75 MG TAB PO SCH (11:00)
[2018-06-03] MEDS: CARVEDILOL 3.125 MG TAB PO SCH ×2 (11:00→22:55)
[2018-06-03] MEDS: LISINOPRIL 5 MG TAB PO SCH (11:00)
[2018-06-03] MEDS: PANTOPRAZOLE 40 MG TAB PO SCH (11:00)
[2018-06-03] MEDS: ENOXAPARIN SOD 80 MG/0.8ML SYRINGE SC SCH ×2 (11:01→22:43)
[2018-06-03 13:26] VITALS: BP 138/63
[2018-06-03 13:29] VITALS: BP 127/68
[2018-06-03 17:00] VITALS: BP 131/61
--- NOTE | 2018-06-03 19:35 | NUR ---
Opening Shift Note Assumed care of patient, awake and alert. No S/S of distress/SOB. Bed locked in lowest position, 2 upper side rails up, call light and bedside tablew within reach. Instructed on POC and to call for assist PRN, will continue to monitor for changes Q1hr and PRN.
[2018-06-03 22:00] VITALS: BP 123/40
[2018-06-03] MEDS: ATORVASTATIN 20 MG TAB PO SCH (22:43)
[2018-06-04] MEDS: IPRATROPIUM BROM 0.5 MG/2.5ML INH SOL NEB SCH ×5 (00:36→23:57)
[2018-06-04] MEDS: ALBUTEROL SULF 2.5 MG/0.5ML(0.5%) NEB SOLN NEB SCH ×5 (00:36→23:57)
[2018-06-04 05:00] VITALS: BP 102/53
[2018-06-04] MEDS: FUROSEMIDE 40 MG/4 ML VIAL IV SCH ×2 (06:15→17:01)
[2018-06-04] MEDS: SODIUM CHLOR 0.9% PF (SALINE LOCK) 10ML VIAL/SYR IV SCH ×3 (06:16→22:22)
[2018-06-04] MEDS: glipiZIDE 5 MG TAB PO SCH ×2 (06:50→18:03)
[2018-06-04] MEDS: InsuLIN REG 1unit/0.01ml Soln (100units/ml) SC SCH ×4 (06:51→22:00)
[2018-06-04] MEDS: ACCU-CHEK COMFORT CURVE STRIP VI SCH ×4 (06:51→22:22)
[2018-06-04 08:26] VITALS: BP 110/54
[2018-06-04] MEDS: LEVOFLOXACIN 500MG 100 ML IV SCH (09:50)
[2018-06-04] MEDS: ENOXAPARIN SOD 80 MG/0.8ML SYRINGE SC SCH ×2 (09:51→22:22)
[2018-06-04] MEDS: CLOPIDOGREL BISULFATE 75 MG TAB PO SCH (09:51)
[2018-06-04] MEDS: LISINOPRIL 5 MG TAB PO SCH (09:51)
[2018-06-04] MEDS: ASPirin 81 mg TAB PO SCH (09:51)
[2018-06-04] MEDS: PANTOPRAZOLE 40 MG TAB PO SCH (09:51)
[2018-06-04] MEDS: POTASSIUM CHL 20 Meq TABLET PO SCH (09:52)
[2018-06-04] MEDS: CARVEDILOL 3.125 MG TAB PO SCH ×2 (09:52→22:22)
[2018-06-04 11:59] VITALS: BP 122/58
[2018-06-04 16:43] VITALS: BP 105/61
--- NOTE | 2018-06-04 19:15 | NUR ---
OPENING SHIFT NOTE ASSUMED CARE OF PATIENT FROM DAY SHIFT RN LIBBY. PATIENT IS AWAKE, ALERT, AND ORIENTED X4 WITH NO S/S OF DISTRESS OR PAIN AT THIS TIME. BED IS LOW, LOCKED, CALL LIGHT IS IN REACH, AND PATIENT IS WEARING SCD'S AND NON-SKID SOCKS. OXYGEN IS ON AT L AND IV IS SL. INSTRUCTED ON PLAN OF CARE, EDUCATED ON UP COMING HCG BATH AND TOMORROWS PROCEDURE. ANSWERED QUESTIONS AND CONCERNS. INSTRUCTED TO CALL FOR ASSIST PRN. WILL CONTINUE TO MONITOR.
[2018-06-04 21:06] VITALS: BP 133/89
[2018-06-04 22:00] VITALS: BP 132/66
[2018-06-04] MEDS: ATORVASTATIN 20 MG TAB PO SCH (22:22)
[2018-06-05] MEDS: ALBUTEROL SULF 2.5 MG/0.5ML(0.5%) NEB SOLN NEB SCH ×3 (05:32→19:11)
[2018-06-05] MEDS: IPRATROPIUM BROM 0.5 MG/2.5ML INH SOL NEB SCH ×3 (05:32→19:11)
[2018-06-05 06:05] VITALS: BP 121/61
[2018-06-05] MEDS: FUROSEMIDE 40 MG/4 ML VIAL IV SCH (06:05)
[2018-06-05] MEDS: SODIUM CHLOR 0.9% PF (SALINE LOCK) 10ML VIAL/SYR IV SCH ×3 (06:06→21:42)
[2018-06-05 06:16] LABS: Basophils # (auto) 0 uL; Basophils % (auto) 0.2 % (0.0-2.0); Eosinophils # (auto) 0.4 uL; Eosinophils % (auto) 3.7 % (0.0-7.0); Hematocrit 42.7 % (41.0-53.0); Hemoglobin 14.7 g/dL (13.5-17.5); Lymphocytes # (auto) 2.4 uL; Lymphocytes % (auto) 22.2 % (10.0-50.0); Mean Corpuscular Hgb Conc. 34.5 g/dL (32.0-36.0); Mean Corpuscular Volume 84.1 fL (80.0-100.0); Monocytes # (auto) 0.9 uL; Monocytes % (auto) 8.6 % (0.0-12.0); Neutrophils % (auto) 65.3 % (37.0-80.0); Platelet Count (auto) 210 10^3/uL (140-450); Red Blood Cells 5.07 10^6/uL (4.5-5.90); Red Cell Distribution Width 14.7 % (11.8-14.3); White Blood Cell 10.8 10^3/uL (4.4-10.8)
[2018-06-05 06:19] LABS: INR 0.98 (0.9-1.15); Partial Thromboplastin Time 34.4 sec (23.78-33.04); Prothrombin Time 10.5 sec (9.27-12.13)
[2018-06-05 06:27] LABS: Calcium 8.9 mg/dL (8.5-10.1); Potassium 3.7 mmol/L (3.5-5.1)
[2018-06-05 06:29] LABS: BUN/Creatinine Ratio 30.4
[2018-06-05] MEDS: glipiZIDE 5 MG TAB PO SCH ×3 (07:00→18:42)
[2018-06-05] MEDS: InsuLIN REG 1unit/0.01ml Soln (100units/ml) SC SCH ×4 (07:00→21:47)
--- NOTE | 2018-06-05 07:10 | NUR ---
CLOSING NOTE PATIENT IS AWAKE, ALERT, AND ORIENTED X4 WITH NO S/S OF DISTRESS OR PAIN AT THIS TIME. BED IS LOW, LOCKED, CALL LIGHT IS IN REACH, AND PATIENT IS WEARING NON-SKID SOCKS. OXYGEN IS ON AT 2L AND IV IS SL. CARE TRANSFERRED TO DAY SHIFT RN
[2018-06-05] MEDS: ACCU-CHEK COMFORT CURVE STRIP VI SCH ×4 (07:20→21:43)
--- NOTE | 2018-06-05 07:35 | NUR ---
OPENING NOTE ASSUMED CARE OF PT. PT IS LAYING IN BED, HOB LOW-RHODES. PT IS A&O X4. ON 2 LPM/NC, O2 SATURATION 97%. NO SIGNS OF SOB/DISTRESS NOTE. ON TELE #43, HR 99. SAFETY PRECAUTIONS IN PLACE INCLUDING BED SET TO LOWEST POSITION/LOCKED. BEDSIDE RAILS UP X2. CALL LIGHT WITHIN REACH. INSTRUCTED PT TO CALL FOR ASSISTANCE. DISCUSSED POC WITH PT. PT VERBALIZED UNDERSTANDING. WILL CONTINUE TO MONITOR Q 1HR AND PRN.
[2018-06-05 09:00] VITALS: BP 95/41
--- NOTE | 2018-06-05 09:10 | NUR ---
PATIENT OFF UNIT VIA BED TO [facility].
[2018-06-05] MEDS ORDERED: fentaNYL CITRATE 100 MCG/2 ML VL ONE (09:26)
[2018-06-05] MEDS ORDERED: ANGIOMAX 250 MG VIAL IV ONE (09:26)
[2018-06-05] MEDS ORDERED: SODIUM CHL 0.9% 50 ML ONE (09:27)
[2018-06-05] MEDS ORDERED: MIDAZOLAM HCL 1MG/1ML-2 ML VIAL ONE (09:27)
[2018-06-05] MEDS ORDERED: LIDOCAINE 2%HCL (LOCAL ANESTH.) INJ 20ML MDV ONE (09:30)
[2018-06-05] MEDS ORDERED: IOHEXOL 350 MG/ML 100ML IJ ONE (09:30)
[2018-06-05] MEDS ORDERED: IODIXANOL 320MG/ML 100ML BTL IV ONE ×2 (09:37→10:14)
[2018-06-05] MEDS: CARVEDILOL 3.125 MG TAB PO SCH ×2 (10:00→21:43)
[2018-06-05] MEDS: ENOXAPARIN SOD 80 MG/0.8ML SYRINGE SC SCH (10:00)
[2018-06-05] MEDS: LISINOPRIL 5 MG TAB PO SCH (10:00)
[2018-06-05] MEDS: POTASSIUM CHL 20 Meq TABLET PO SCH (10:00)
[2018-06-05] MEDS: PANTOPRAZOLE 40 MG TAB PO SCH (10:00)
[2018-06-05] MEDS ORDERED: ASPirin 81 mg TAB ONE (11:05)
[2018-06-05] MEDS ORDERED: CLOPIDOGREL BISULFATE 75 MG TAB ONE (11:05)
[2018-06-05] MEDS: CLOPIDOGREL BISULFATE 75 MG TAB PO SCH (11:05)
[2018-06-05] MEDS: ASPirin 81 mg TAB PO SCH (11:05)
--- NOTE | 2018-06-05 11:17 | NUR ---
PT Patient not in the room during PT visit. AALIYAH crockett pt was sent to denture laboratory technician. Addendum: 06/05/18 at 1118 by AYO KEEN PTT Amended: Links added.
--- NOTE | 2018-06-05 11:27 | NUR ---
Nutrition Assessment Notes please see attached link for complete assessment Est. Needs BW [id number] kcal (23-25 kcal/kgBW), 62-78 gms pro (0.8-1.0 gms/kgBW). Will continue to monitor pertinent labs and reassess nutrient needs prn. reassess as elev ammonia Addendum: 06/05/18 at [address] Amended: Links added.
--- NOTE | 2018-06-05 12:10 | NUR ---
SCHEDULED [place] TX NOT GIVEN. PT ON CLINICAL PROCEDURE. WILL CONTINUE TO MONITOR PT.
--- NOTE | 2018-06-05 12:49 | NUR ---
PATIENT BACK ON UNIT VIA BED FROM SENIOR MANAGER ASSET PROTECTION. NO SINGS OF SOB/DISTRESS NOTED. DRESSING CLEAN, DRY AND INTACT. WILL CONTINUE TO MONITOR.
--- NOTE | 2018-06-05 13:53 | NUR ---
PT Hold PT as per AALIYAH Roberts for patient. No OOB activity till 5pm. Addendum: 06/05/18 at 1354 by AYO KEEN PTT Amended: Links added.
[2018-06-05] MEDS ORDERED: MORPHINE SULFATE 4 MG/ML SYR/VIAL IV PRN (15:45)
[2018-06-05] MEDS ORDERED: HYDROcodone-ACET 5/325MG TAB PO PRN (15:45)
[2018-06-05 18:26] VITALS: BP 138/65
--- NOTE | 2018-06-05 19:11 | NUR ---
CLOSING NOTE ENDORSED CARE TO GENNARO FISCHER.
--- NOTE | 2018-06-05 19:40 | NUR ---
RECEIVED PATIENT FROM DAY SHIFT RN. PATIENT RESTING IN BED. NO S/S OF DISTRESS NOTED. DENIED PAIN FOR NOW. DRESSING ON RIGHT GROIN C/D/I. BUT ON LEFT GROIN SOAKED WITH BLOOD. WILL COME BACK TO CHANGE THE DRESSING LATER. INSTRUCTED PATIENT TO APPLY PRESSURE ON LEFT GROIN SIDE WHEN HE GETS UP TO WALK OR COUGH. PATIENT VERBALIZED UNDERSTANDING. POC INSTRUCTED AND ENCOURAGED PATIENT TO CALL FOR BATTERY LOADER IF NEEDED. BED IN LOWEST POSITION WITH SIDE RAILS UP X 2. CALL BAUMAN WITHIN REACH. ALARM ON. CONTINUE TO MONITOR FOR CHANGES Q1H AND PRN.
--- NOTE | 2018-06-05 21:21 | NUR ---
DRESSING CHANGED ON LEFT GROIN. NO S/S OF BLEEDING NOTED, BUT BRUISE. REINFORCED PATIENT TO APPLY PRESSURE ON THE SITE WHEN HE WALKS OR COUGHS. PATIENT VERBALIZED UNDERSTANDING. CONTINUE TO MONITOR.
[2018-06-05] MEDS: ATORVASTATIN 20 MG TAB PO SCH (21:43)
[2018-06-05 22:23] VITALS: BP 134/58
--- NOTE | 2018-06-05 22:55 | NUR ---
REASSESSED BP 151/70, HR 104. CONTINUE TO MONITOR.
--- NOTE | 2018-06-06 00:39 | NUR ---
RT PATED FOR BREATHING TREATMENT. CONTINUE TO MONITOR.
[2018-06-06] MEDS: IPRATROPIUM BROM 0.5 MG/2.5ML INH SOL NEB SCH ×3 (01:38→12:15)
[2018-06-06] MEDS: ALBUTEROL SULF 2.5 MG/0.5ML(0.5%) NEB SOLN NEB SCH ×3 (01:38→12:15)
--- NOTE | 2018-06-06 02:58 | NUR ---
PATIENT SLEEPING. NO S/S OF DISTRESS NOTED. BED IN LOWEST POSITION. CALL BAUMAN WITHIN REACH . ALARM ON. CONTINUE CARE.
[2018-06-06 05:54] VITALS: BP 115/54
[2018-06-06] MEDS: glipiZIDE 5 MG TAB PO SCH (06:34)
[2018-06-06] MEDS: ACCU-CHEK COMFORT CURVE STRIP VI SCH (06:34)
[2018-06-06] MEDS: SODIUM CHLOR 0.9% PF (SALINE LOCK) 10ML VIAL/SYR IV SCH (06:34)
[2018-06-06] MEDS: InsuLIN REG 1unit/0.01ml Soln (100units/ml) SC SCH (06:35)
--- NOTE | 2018-06-06 06:39 | NUR ---
ACCU-CHECK, BS 199. INSULIN GIVEN ORDERED. CONTINUE TO MONITOR.
[2018-06-06 08:06] LABS: Potassium 4.2 mmol/L (3.5-5.1)
[2018-06-06 08:09] LABS: BUN/Creatinine Ratio 30.8; Magnesium 2.7 mg/dL (1.6-2.6)
[2018-06-06 09:00] VITALS: BP 137/87
[2018-06-06 09:24] LABS: Basophils # (auto) 0 uL; Basophils % (auto) 0.1 % (0.0-2.0); Eosinophils # (auto) 0.3 uL; Eosinophils % (auto) 2.4 % (0.0-7.0); Hematocrit 43.3 % (41.0-53.0); Hemoglobin 14.6 g/dL (13.5-17.5); Lymphocytes # (auto) 1.7 uL; Lymphocytes % (auto) 15.4 % (10.0-50.0); Mean Corpuscular Hemoglobin 28.7 pg (28.0-32.0); Mean Corpuscular Hgb Conc. 33.7 g/dL (32.0-36.0); Monocytes # (auto) 0.9 uL; Monocytes % (auto) 7.9 % (0.0-12.0); Neutrophils # (auto) 8.3 uL; Neutrophils % (auto) 74.2 % (37.0-80.0); Nucleated Red Blood Cells % 0.1 %; Platelet Count (auto) 198 10^3/uL (140-450); Red Cell Distribution Width 14.5 % (11.8-14.3); White Blood Cell 11.2 10^3/uL (4.4-10.8)
[2018-06-06] MEDS ORDERED: LEVOFLOXACIN 250MG 50 ML IV SCH (10:00)
[2018-06-06] MEDS ORDERED: FUROSEMIDE 40 MG/4 ML VIAL IV SCH (10:00)
[2018-06-06] MEDS: CLOPIDOGREL BISULFATE 75 MG TAB PO SCH (10:04)
[2018-06-06] MEDS: PANTOPRAZOLE 40 MG TAB PO SCH (10:04)
[2018-06-06] MEDS: POTASSIUM CHL 20 Meq TABLET PO SCH (10:04)
[2018-06-06] MEDS: ASPirin 81 mg TAB PO SCH (10:04)
[2018-06-06] MEDS: LISINOPRIL 5 MG TAB PO SCH (10:05)
[2018-06-06] MEDS: CARVEDILOL 3.125 MG TAB PO SCH (10:06)
[2018-06-06] MEDS ORDERED: ASPI81CH43 PO (11:05)
[2018-06-06] MEDS ORDERED: FLUC200T35 PO (11:05)
[2018-06-06] MEDS ORDERED: LEVO500T21 PO (11:05)
[2018-06-06] MEDS ORDERED: CLOP75TA28 PO (11:05)
[2018-06-06] MEDS ORDERED: GLIP-115 PO (11:05)
[2018-06-06] MEDS ORDERED: ATOR20TA50 PO (11:05)
[2018-06-06] MEDS ORDERED: PANT40T PO (11:05)
[2018-06-06] MEDS ORDERED: FURO40TA PO (11:05)
[2018-06-06] MEDS ORDERED: POTA20TA53 PO (11:05)
[2018-06-06] MEDS ORDERED: CAR3125T PO (11:05)
[2018-06-06 12:05] VITALS: BP 137/87
[2018-06-06 13:00] VITALS: BP 106/48
--- NOTE | 2018-06-06 13:20 | NUR ---
Discharge instructions given as ordered. Encourage to follow up with DR. Max Coffman on 06/12/18 at 3:00 PM, [id number] [place] [address], Ext [phone]. All questions and concerns addressed. Patient verbalized understanding. No home medications held in Pharmacy and no vaccines given. IV removed with catheter intact, pressure dressing applied. Telemetry unit #[id number] returned to ICU.
--- NOTE | 2018-06-06 14:15 | NUR ---
Patient taken to vehicle via wheelchair with all personal belongings, accompanied by staff and family member. No distress noted at time of departure.
== END 2018-06-06 14:15 | disposition home or self-care (01) | DRG 853 ==
LOC: ER 15:19 → TELE 16:37 → TELE-CENTR 06-02 11:57
PROVIDERS: ADMIT Internal Medicine; ATTEND Internal Medicine
PROC: 047D3DZ Dilation of Left Common Iliac Artery with Intraluminal Device, Percutaneous Approach (ICD-10-PCS; principal; 2018-06-02)
PROC: 027135Z Dilation of Coronary Artery, Two Arteries with Two Drug-eluting Intraluminal Devices, Percutaneous Approach (ICD-10-PCS; 2018-06-02)
PROC: 4A023N7 Measurement of Cardiac Sampling and Pressure, Left Heart, Percutaneous Approach (ICD-10-PCS; 2018-06-02)
PROC: B2111ZZ Fluoroscopy of Multiple Coronary Arteries using Low Osmolar Contrast (ICD-10-PCS; 2018-06-02)
PROC: B2151ZZ Fluoroscopy of Left Heart using Low Osmolar Contrast (ICD-10-PCS; 2018-06-02)
PROC: 047D3DZ Dilation of Left Common Iliac Artery with Intraluminal Device, Percutaneous Approach (ICD-10-PCS; 2018-06-05)
PROC: B41G1ZZ Fluoroscopy of Left Lower Extremity Arteries using Low Osmolar Contrast (ICD-10-PCS; 2018-06-05)
DX: A41.9 Sepsis, unspecified organism (principal); I21.4 Non-ST elevation (NSTEMI) myocardial infarction; I50.43 Acute on chronic combined systolic (congestive) and diastolic (congestive) heart failure; J96.20 Acute and chronic respiratory failure, unspecified whether with hypoxia or hypercapnia; J69.0 Pneumonitis due to inhalation of food and vomit; N17.0 Acute kidney failure with tubular necrosis; I42.9 Cardiomyopathy, unspecified; J44.0 Chronic obstructive pulmonary disease with (acute) lower respiratory infection; E11.51 Type 2 diabetes mellitus with diabetic peripheral angiopathy without gangrene; E78.5 Hyperlipidemia, unspecified; I11.0 Hypertensive heart disease with heart failure; I25.10 Atherosclerotic heart disease of native coronary artery without angina pectoris; I70.8 Atherosclerosis of other arteries; Z82.49 Family history of ischemic heart disease and other diseases of the circulatory system; Z83.3 Family history of diabetes mellitus; Z87.891 Personal history of nicotine dependence; Z95.810 Presence of automatic (implantable) cardiac defibrillator; Z99.81 Dependence on supplemental oxygen; Z88.0 Allergy status to penicillin
CPT/HCPCS: 36415; 37221; 70450; 71045; 71250; 75710; 80048; 80053; 80061; 81001; 82550; 82962; 83036; 83605; 83735; 83880; 84443; 84484; 85025; 85379; 85610; 85730; 86141; 87040; 87070; 87205; 87804; 92928; 92929; 93005; 93306; 93458; 94640; 96365; 96375; 97116; 97163; 97530; 99152; A6257; C1874; C1887; G0378; J1815; J1956; J2250; Q9967

== ENCOUNTER → 2018-06-23 | Outpatient (CLI) | payer OTHER ==
[~2018-06-23] MED LIST changes: +ASPI81CH43 PO; +ATOR20TA50 PO; +CAR3125T PO; -CARV3.1240; +CLOP75TA28 PO; +FLUC200T35 PO; +FURO40TA PO; -GLIP-115; +GLIP-115 PO; -HCTZ25T; +LEVO500T21 PO; +PANT40T PO; +POTA20TA53 PO
[2018-06-23 08:26] LABS: Basophils # (auto) 0 uL; Basophils % (auto) 0.3 % (0.0-2.0); Eosinophils # (auto) 0.4 uL; Eosinophils % (auto) 4.5 % (0.0-7.0); Hematocrit 42.2 % (41.0-53.0); Hemoglobin 14.4 g/dL (13.5-17.5); Lymphocytes # (auto) 1.9 uL; Lymphocytes % (auto) 20.4 % (10.0-50.0); Mean Corpuscular Hemoglobin 28.5 pg (28.0-32.0); Mean Corpuscular Hgb Conc. 34.1 g/dL (32.0-36.0); Mean Corpuscular Volume 83.5 fL (80.0-100.0); Monocytes # (auto) 0.5 uL; Monocytes % (auto) 5.8 % (0.0-12.0); Neutrophils # (auto) 6.3 uL; Nucleated Red Blood Cells % 0.1 %; Platelet Count (auto) 238 10^3/uL (140-450); Red Blood Cells 5.05 10^6/uL (4.5-5.90); Red Cell Distribution Width 14.4 % (11.8-14.3); White Blood Cell 9.2 10^3/uL (4.4-10.8)
[2018-06-23 09:53] LABS: Albumin 3.5 g/dL (3.4-5.0); Calcium 9.6 mg/dL (8.5-10.1)
[2018-06-23 09:56] LABS: Bilirubin, Total 0.8 mg/dL (0.2-1.0); Total Protein 8.2 g/dL (6.4-8.2)
== END | disposition home or self-care (01) ==
LOC: LAB 08:06
PROVIDERS: ATTEND Family Medicine
DX: I11.0 Hypertensive heart disease with heart failure (principal); I50.22 Chronic systolic (congestive) heart failure; E78.49 Other hyperlipidemia; E10.65 Type 1 diabetes mellitus with hyperglycemia
CPT/HCPCS: 36415; 80053; 83036; 85025

== ENCOUNTER → 2018-12-27 | Outpatient (CLI) | payer OTHER ==
[~2018-12-27] MED LIST changes: +FURO1TAB31 PO; -FURO40TA PO; -GLIP-115 PO; +GLIP5TAB12 PO; +POTA-220 PO; -POTA20TA53 PO
[2018-12-27 13:22] LABS: Protein, Urine 27.7 mg/dL (0.0-11.9)
[2018-12-27 13:33] LABS: Potassium 4.3 mmol/L (3.5-5.1)
[2018-12-27 14:04] LABS: Albumin 3.6 g/dL (3.4-5.0); BUN/Creatinine Ratio 13.2; Bilirubin, Total 0.6 mg/dL (0.2-1.0); Total Protein 7.4 g/dL (6.4-8.2)
== END | disposition home or self-care (01) ==
LOC: LAB 07:17
DX: E11.65 Type 2 diabetes mellitus with hyperglycemia (principal)
CPT/HCPCS: 36415; 80053; 80061; 82570; 83036; 84156

== ENCOUNTER → 2019-03-20 | Outpatient (CLI) | payer OTHER ==
[2019-03-20 08:26] LABS: Calcium 9.5 mg/dL (8.5-10.1); Potassium 4.5 mmol/L (3.5-5.1)
[2019-03-20 08:30] LABS: BUN/Creatinine Ratio 20.2; Bilirubin, Total 0.7 mg/dL (0.2-1.0)
== END | disposition home or self-care (01) ==
LOC: LAB 07:49
DX: E11.65 Type 2 diabetes mellitus with hyperglycemia (principal); J44.9 Chronic obstructive pulmonary disease, unspecified; I11.0 Hypertensive heart disease with heart failure; I50.9 Heart failure, unspecified; I25.10 Atherosclerotic heart disease of native coronary artery without angina pectoris; E78.5 Hyperlipidemia, unspecified; J96.11 Chronic respiratory failure with hypoxia; I49.9 Cardiac arrhythmia, unspecified; Z95.0 Presence of cardiac pacemaker; Z87.891 Personal history of nicotine dependence; Z88.0 Allergy status to penicillin; Z91.018 Allergy to other foods
CPT/HCPCS: 36415; 80053; 82043; 82570; 83036

== ENCOUNTER 2019-06-12 08:28 | Emergency (ER) | payer OTHER ==
[~2019-06-12] VITALS: Ht 177.8 cm; Wt 81.6 kg
[2019-06-12] MEDS ORDERED: METHOCARBAMOL 500 MG TAB PO ONE (10:30)
[2019-06-12] MEDS ORDERED: ACETAMINOPHEN 325 MG TAB PO ONE (10:30)
[2019-06-12] MEDS ORDERED: IOHEXOL 350 MG/ML 100ML IJ ONE ×2 (11:02→14:43)
[2019-06-12 11:05] LABS: Urine Bacteria NONE SEEN /hpf (None Seen); Urine Blood Negative /uL (Negative); Urine Specific Gravity 1.006 (1.001-1.035); Urine WBC <1 /hpf (0 - 3)
[2019-06-12 11:54] LABS: Basophils # (auto) 0.1 uL; Eosinophils # (auto) 0.4 uL; Eosinophils % (auto) 2.9 % (0.0-7.0); Hematocrit 42.7 % (41.0-53.0); Hemoglobin 14.4 g/dL (13.5-17.5); Lymphocytes # (auto) 2.8 uL; Lymphocytes % (auto) 20.5 % (10.0-50.0); Mean Corpuscular Hemoglobin 28.3 pg (28.0-32.0); Mean Corpuscular Hgb Conc. 33.8 g/dL (32.0-36.0); Mean Corpuscular Volume 83.8 fL (80.0-100.0); Monocytes % (auto) 7.6 % (0.0-12.0); Neutrophils # (auto) 9.3 uL; Nucleated Red Blood Cells % 0.1 %; Platelet Count (auto) 166 10^3/uL (140-450); Red Cell Distribution Width 14.7 % (11.8-14.3); White Blood Cell 13.7 10^3/uL (4.4-10.8)
[2019-06-12 12:20] LABS: Albumin 3.5 g/dL (3.4-5.0); Anion Gap 5 (5-15); Blood Urea Nitrogen 18 mg/dL (7-18); Carbon Dioxide 31 mmol/L (21-32); Chloride 102 mmol/L (98-107); Glucose 112 mg/dL (74-106); Potassium 3.8 mmol/L (3.5-5.1); Sodium 138 mmol/L (136-145)
[2019-06-12 12:25] LABS: Alanine Aminotransferase 19 U/L (16-61); Alkaline Phosphatase 95 U/L (45-117); Aspartate Aminotransferase 16 U/L (15-37); BUN/Creatinine Ratio 18.2; Bilirubin, Total 1.3 mg/dL (0.2-1.0); GFR African American 94 mL/min; GFR Non-African American 78 mL/min; Total Protein 7.4 g/dL (6.4-8.2)
[2019-06-12 12:42] VITALS: BP 119/55
== END 2019-06-12 16:28 | disposition home or self-care (01) ==
LOC: EDBD 08:28 → ER 08:28
DX: M54.16 Radiculopathy, lumbar region (principal); G89.29 Other chronic pain; K86.1 Other chronic pancreatitis; J40 Bronchitis, not specified as acute or chronic; E11.9 Type 2 diabetes mellitus without complications; E78.5 Hyperlipidemia, unspecified; I11.0 Hypertensive heart disease with heart failure; I50.9 Heart failure, unspecified; Z86.73 Personal history of transient ischemic attack (TIA), and cerebral infarction without residual deficits; Z98.61 Coronary angioplasty status; Z79.899 Other long term (current) drug therapy; Z88.0 Allergy status to penicillin; Z91.018 Allergy to other foods
CPT/HCPCS: 36415; 71045; 72100; 80053; 81001; 83880; 84484; 85025; 99284; Q9967; 93005

== ENCOUNTER → 2019-07-02 | Outpatient (CLI) | payer OTHER ==
[2019-07-02 08:59] LABS: Potassium 3.7 mmol/L (3.5-5.1)
[2019-07-02 09:04] LABS: Albumin 3.6 g/dL (3.4-5.0); BUN/Creatinine Ratio 21.9; Bilirubin, Total 0.9 mg/dL (0.2-1.0); Calcium 9.2 mg/dL (8.5-10.1); Total Protein 7.5 g/dL (6.4-8.2)
== END | disposition home or self-care (01) ==
LOC: LAB 07:22
DX: E11.65 Type 2 diabetes mellitus with hyperglycemia (principal)
CPT/HCPCS: 36415; 80053; 82043; 82570; 83036

== ENCOUNTER → 2019-10-17 | Outpatient (CLI) | payer OTHER | END | disposition home or self-care (01) | LOC: XYW 11:00 | PROVIDERS: ATTEND Internal Medicine | DX: I08.0 Rheumatic disorders of both mitral and aortic valves (principal); I25.10 Atherosclerotic heart disease of native coronary artery without angina pectoris | CPT/HCPCS: 93306 ==

== ENCOUNTER → 2019-12-10 | Outpatient (CLI) | payer OTHER ==
[~2019-12-10] MED LIST changes: -ALBU18; -ASPI-231 OR; -ATOR20TA50 PO; +ATOR40TA52 PO; -BAC09TP; -DOXY100C2; -FLUC200T35 PO; -GLIP5TAB12 PO; +INS7030I SC; -LEVO500T21 PO; -LOVA40TA72; -METF-370; +PANT1INJ3 PO; -PANT40T PO; -POTA-220 PO; -RAMI5CAP40; -[UNRECOGNIZED DRUG - OTHER]
[2019-12-10 11:53] LABS: Basophils # (auto) 0 10 ^3/uL (0-0.2); Basophils % (auto) 0.4 % (0.0-2.0); Eosinophils # (auto) 0.2 10 ^3/uL (0-0.8); Eosinophils % (auto) 2.3 % (0.0-7.0); Hematocrit 41.6 % (41.0-53.0); Hemoglobin 13.9 g/dL (13.5-17.5); Lymphocytes # (auto) 1.9 10 ^3/uL (0.4-5.4); Lymphocytes % (auto) 19.8 % (10.0-50.0); Mean Corpuscular Hemoglobin 28.2 pg (28.0-32.0); Mean Corpuscular Hgb Conc. 33.4 g/dL (32.0-36.0); Mean Corpuscular Volume 84.4 fL (80.0-100.0); Monocytes # (auto) 0.6 10 ^3/uL (0-1.3); Monocytes % (auto) 5.7 % (0.0-12.0); Neutrophils # (auto) 6.9 10 ^3/uL (1.6-8.6); Neutrophils % (auto) 71.8 % (37.0-80.0); Platelet Count (auto) 219 10^3/uL (140-450); Red Blood Cells 4.94 10^6/uL (4.5-5.90); Red Cell Distribution Width 14.9 % (11.8-14.3); White Blood Cell 9.7 10^3/uL (4.4-10.8)
[2019-12-10 12:03] LABS: Calcium 9.2 mg/dL (8.5-10.1); Potassium 3.8 mmol/L (3.5-5.1)
[2019-12-10 12:05] LABS: BUN/Creatinine Ratio 16.9
[2019-12-10 12:09] LABS: INR 0.98 (0.9-1.15); Partial Thromboplastin Time 26.3 sec (23.0-31.2)
== END | disposition home or self-care (01) ==
LOC: LAB 11:32
PROVIDERS: ATTEND Family Medicine
DX: Z01.818 Encounter for other preprocedural examination (principal); Z45.02 Encounter for adjustment and management of automatic implantable cardiac defibrillator; I10 Essential (primary) hypertension; I42.9 Cardiomyopathy, unspecified
CPT/HCPCS: 36415; 80048; 85025; 85610; 85730

== ENCOUNTER 2019-12-13 07:38 | Day surgery (SDC) | payer OTHER ==
[~2019-12-13] VITALS: Ht 167.6 cm; Wt 77.1 kg
[2019-12-13] MEDS ORDERED: VANCOMYCIN 1GM/250ML 250 ML IV ONE (08:26)
[2019-12-13] MEDS ORDERED: MIDAZOLAM HCL 1MG/1ML-2 ML VIAL ONE ×2 (09:25→12:17)
[2019-12-13] MEDS ORDERED: fentaNYL CITRATE 100 MCG/2 ML VL ONE ×2 (09:25→12:16)
[2019-12-13] MEDS ORDERED: VANCOMYCIN HCL 1000 MG VL ONE ×2 (09:25→12:16)
[2019-12-13] MEDS ORDERED: LIDOCAINE 2%HCL (LOCAL ANESTH.) INJ 20ML MDV ONE ×3 (09:26→12:38)
[2019-12-13] MEDS ORDERED: HYDROcodone-ACET 5/325MG TAB PO PRN (13:30)
== END 2019-12-13 14:48 | disposition home or self-care (01) ==
LOC: CATH 07:38
PROVIDERS: ATTEND Internal Medicine Cardiovascular Disease
DX: Z45.02 Encounter for adjustment and management of automatic implantable cardiac defibrillator (principal); E78.5 Hyperlipidemia, unspecified; I25.2 Old myocardial infarction; I11.0 Hypertensive heart disease with heart failure; E11.9 Type 2 diabetes mellitus without complications; J44.9 Chronic obstructive pulmonary disease, unspecified; Z87.891 Personal history of nicotine dependence; Z79.82 Long term (current) use of aspirin; Z79.899 Other long term (current) drug therapy; Z98.890 Other specified postprocedural states; Z20.828 Contact with and (suspected) exposure to other viral communicable diseases
CPT/HCPCS: 33264; 93005; C1882; J2250; J3010; J3370; U0003; 93460; 99152; 99153

== ENCOUNTER → 2020-01-31 | Outpatient (CLI) | payer OTHER ==
[2020-01-31 07:45] LABS: Basophils # (auto) 0 10 ^3/uL (0-0.2); Basophils % (auto) 0.3 % (0.0-2.0); Eosinophils # (auto) 0.4 10 ^3/uL (0-0.8); Eosinophils % (auto) 3.8 % (0.0-7.0); Hematocrit 41.4 % (41.0-53.0); Hemoglobin 14.2 g/dL (13.5-17.5); Lymphocytes # (auto) 1.8 10 ^3/uL (0.4-5.4); Lymphocytes % (auto) 19.8 % (10.0-50.0); Mean Corpuscular Hemoglobin 28.7 pg (28.0-32.0); Mean Corpuscular Hgb Conc. 34.2 g/dL (32.0-36.0); Monocytes # (auto) 0.6 10 ^3/uL (0-1.3); Monocytes % (auto) 6.4 % (0.0-12.0); Neutrophils # (auto) 6.4 10 ^3/uL (1.6-8.6); Neutrophils % (auto) 69.7 % (37.0-80.0); Platelet Count (auto) 209 10^3/uL (140-450); Red Blood Cells 4.93 10^6/uL (4.5-5.90); Red Cell Distribution Width 15.1 % (11.8-14.3); White Blood Cell 9.2 10^3/uL (4.4-10.8)
[2020-01-31 07:46] LABS: Urine Blood Negative /uL (Negative); Urine Specific Gravity 1.021 (1.001-1.035)
[2020-01-31 08:41] LABS: Albumin 3.8 g/dL (3.4-5.0); Calcium 9.2 mg/dL (8.5-10.1)
[2020-01-31 08:47] LABS: BUN/Creatinine Ratio 24.5; Bilirubin, Total 0.7 mg/dL (0.2-1.0); Total Protein 7.6 g/dL (6.4-8.2)
== END | disposition home or self-care (01) ==
LOC: LAB 07:19
PROVIDERS: ATTEND Family Medicine
DX: I10 Essential (primary) hypertension (principal); I25.10 Atherosclerotic heart disease of native coronary artery without angina pectoris; I73.9 Peripheral vascular disease, unspecified; E10.65 Type 1 diabetes mellitus with hyperglycemia; F03.90 Unspecified dementia, unspecified severity, without behavioral disturbance, psychotic disturbance, mood disturbance, and anxiety; I42.9 Cardiomyopathy, unspecified; J44.9 Chronic obstructive pulmonary disease, unspecified; Z95.0 Presence of cardiac pacemaker
CPT/HCPCS: 36415; 80053; 80061; 81003; 82306; 82607; 83036; 84443; 85025

== ENCOUNTER → 2020-03-12 | Outpatient (CLI) | payer OTHER | END | disposition home or self-care (01) | LOC: Rad HDHVI 13:03 | PROVIDERS: ATTEND Internal Medicine Cardiovascular Disease | DX: I51.7 Cardiomegaly (principal); R00.2 Palpitations | CPT/HCPCS: 93306 ==

== ENCOUNTER → 2020-09-02 | Outpatient (CLI) | payer OTHER | END | disposition home or self-care (01) | LOC: LAB 13:27 | PROVIDERS: ATTEND Family Medicine | DX: C44.91 Basal cell carcinoma of skin, unspecified (principal) ==

== ENCOUNTER → 2020-09-12 | Outpatient (CLI) | payer OTHER | END | disposition home or self-care (01) | LOC: LAB 11:52 | PROVIDERS: ATTEND Family Medicine | DX: C44.81 Basal cell carcinoma of overlapping sites of skin (principal) ==

== ENCOUNTER → 2020-10-14 | Outpatient (CLI) | payer OTHER | END | disposition home or self-care (01) | LOC: LAB 14:15 | PROVIDERS: ATTEND Family Medicine | DX: C44.311 Basal cell carcinoma of skin of nose (principal) ==

== ENCOUNTER → 2021-01-20 | Outpatient (CLI) | payer OTHER | END | disposition home or self-care (01) | LOC: LAB 14:45 | PROVIDERS: ATTEND Family Medicine | DX: C44.91 Basal cell carcinoma of skin, unspecified (principal) | CPT/HCPCS: 88302 ==

== ENCOUNTER → 2021-02-24 | Outpatient (CLI) | payer OTHER ==
[2021-02-24 09:13] LABS: Urine Bacteria NONE SEEN /hpf (None Seen); Urine Blood Negative /uL (Negative); Urine Specific Gravity 1.023 (1.001-1.035); Urine WBC 1 /hpf (0 - 3)
[2021-02-24 09:20] LABS: Basophils # (auto) 0 10 ^3/uL (0-0.2); Basophils % (auto) 0.4 % (0.0-2.0); Eosinophils # (auto) 0.3 10 ^3/uL (0-0.8); Eosinophils % (auto) 3.8 % (0.0-7.0); Hematocrit 44.1 % (41.0-53.0); Hemoglobin 14.8 g/dL (13.5-17.5); Lymphocytes # (auto) 1.6 10 ^3/uL (0.4-5.4); Lymphocytes % (auto) 17.6 % (10.0-50.0); Mean Corpuscular Hemoglobin 28.4 pg (28.0-32.0); Mean Corpuscular Hgb Conc. 33.7 g/dL (32.0-36.0); Mean Corpuscular Volume 84.2 fL (80.0-100.0); Monocytes # (auto) 0.6 10 ^3/uL (0-1.3); Monocytes % (auto) 6.3 % (0.0-12.0); Neutrophils # (auto) 6.7 10 ^3/uL (1.6-8.6); Neutrophils % (auto) 71.9 % (37.0-80.0); Nucleated Red Blood Cells % 0.1 %; Red Blood Cells 5.24 10^6/uL (4.5-5.90); Red Cell Distribution Width 14.9 % (11.8-14.3); White Blood Cell 9.3 10^3/uL (4.4-10.8)
[2021-02-24 09:31] LABS: Albumin 3.8 g/dL (3.4-5.0); Calcium 9.3 mg/dL (8.5-10.1); Potassium 4.4 mmol/L (3.5-5.1)
[2021-02-24 09:35] LABS: BUN/Creatinine Ratio 21.4; Total Protein 8.1 g/dL (6.4-8.2)
== END | disposition home or self-care (01) ==
LOC: LAB 08:41
PROVIDERS: ATTEND Family Medicine
DX: E11.9 Type 2 diabetes mellitus without complications (principal); I10 Essential (primary) hypertension; E78.2 Mixed hyperlipidemia; J44.9 Chronic obstructive pulmonary disease, unspecified; Z79.4 Long term (current) use of insulin; Z95.0 Presence of cardiac pacemaker
CPT/HCPCS: 36415; 80053; 80061; 81001; 82043; 82306; 82607; 83036; 85025

== ENCOUNTER → 2021-06-26 | Outpatient (CLI) | payer OTHER ==
[2021-06-26 11:05] LABS: Potassium 3.9 mmol/L (3.5-5.1)
[2021-06-26 11:16] LABS: Hematocrit 38.3 % (41.0-53.0); Hemoglobin 13.1 g/dL (13.5-17.5); Mean Corpuscular Hemoglobin 28.9 pg (28.0-32.0); Mean Corpuscular Hgb Conc. 34.4 g/dL (32.0-36.0); Mean Corpuscular Volume 84.1 fL (80.0-100.0); Red Blood Cells 4.55 10^6/uL (4.5-5.90); Red Cell Distribution Width 14.8 % (11.8-14.3); White Blood Cell 9.1 10^3/uL (4.4-10.8)
[2021-06-26 11:30] LABS: Band Neutrophils % (manual) 0; Basophils % (manual) 0 (0.0-2.0); Blast Cells 0; Metamyelocytes % 0; Promyelocytes % 0; Reactive Lymphocytes 0
[2021-06-26 11:46] LABS: Albumin 3.7 g/dL (3.4-5.0); BUN/Creatinine Ratio 26.8; Bilirubin, Total 0.8 mg/dL (0.2-1.0); Calcium 9.5 mg/dL (8.5-10.1); Total Protein 7.4 g/dL (6.4-8.2)
[2021-06-26 12:22] LABS: Eosinophils % (manual) 4 (0-7); Lymphocytes % (manual) 16 (10.0-50.0); Monocytes % (manual) 7 (0-12); Myelocytes % 2
== END | disposition home or self-care (01) ==
LOC: LAB 07:56
PROVIDERS: ATTEND Student in an Organized Health Care Education/Training Program
DX: Z00.00 Encounter for general adult medical examination without abnormal findings (principal); E11.51 Type 2 diabetes mellitus with diabetic peripheral angiopathy without gangrene; B44.9 Aspergillosis, unspecified; E78.2 Mixed hyperlipidemia; I10 Essential (primary) hypertension
CPT/HCPCS: 36415; 80053; 80061; 83036; 85007; 85027

== ENCOUNTER → 2021-08-28 | Outpatient (CLI) | payer OTHER | END | disposition home or self-care (01) | LOC: LAB 11:15 | PROVIDERS: ATTEND Family Medicine | DX: Z01.812 Encounter for preprocedural laboratory examination (principal); C44.91 Basal cell carcinoma of skin, unspecified | CPT/HCPCS: 88302 ==

== ENCOUNTER → 2021-11-05 | Outpatient (CLI) | payer OTHER | END | disposition home or self-care (01) | LOC: XYW 14:54 | PROVIDERS: ATTEND Internal Medicine | DX: I35.1 Nonrheumatic aortic (valve) insufficiency (principal); I51.7 Cardiomegaly | CPT/HCPCS: 93306 ==

== ENCOUNTER → 2021-12-30 | Outpatient (CLI) | payer OTHER ==
[2021-12-30 08:42] LABS: Basophils # (auto) 0 10 ^3/uL (0-0.2); Basophils % (auto) 0.2 % (0.0-2.0); Eosinophils # (auto) 0.3 10 ^3/uL (0-0.8); Hematocrit 36.2 % (41.0-53.0); Hemoglobin 12.2 g/dL (13.5-17.5); Lymphocytes # (auto) 1.4 10 ^3/uL (0.4-5.4); Lymphocytes % (auto) 13.3 % (10.0-50.0); Mean Corpuscular Hemoglobin 29.2 pg (28.0-32.0); Mean Corpuscular Hgb Conc. 33.6 g/dL (32.0-36.0); Mean Corpuscular Volume 86.8 fL (80.0-100.0); Monocytes # (auto) 0.5 10 ^3/uL (0-1.3); Monocytes % (auto) 5.3 % (0.0-12.0); Neutrophils # (auto) 8.1 10 ^3/uL (1.6-8.6); Neutrophils % (auto) 78.2 % (37.0-80.0); Red Blood Cells 4.17 10^6/uL (4.5-5.90); Red Cell Distribution Width 14.6 % (11.8-14.3); White Blood Cell 10.3 10^3/uL (4.4-10.8)
[2021-12-30 09:05] LABS: Potassium 3.6 mmol/L (3.5-5.1)
[2021-12-30 09:16] LABS: Prostate Specific Antigen 3.53 ng/mL (0.0-4.0)
[2021-12-30 09:22] LABS: Albumin 3.5 g/dL (3.4-5.0); Bilirubin, Total 0.7 mg/dL (0.2-1.0); Total Protein 6.5 g/dL (6.4-8.2)
== END | disposition home or self-care (01) ==
LOC: LAB 08:08
PROVIDERS: ATTEND Internal Medicine
DX: I10 Essential (primary) hypertension (principal); J43.9 Emphysema, unspecified; E11.69 Type 2 diabetes mellitus with other specified complication
CPT/HCPCS: 36415; 80053; 80061; 82043; 82306; 82607; 83036; 84153; 84443; 85025

== ENCOUNTER → 2022-01-06 | Outpatient (CLI) | payer OTHER | END | disposition home or self-care (01) | LOC: LAB 13:13 | PROVIDERS: ATTEND Internal Medicine | DX: E11.69 Type 2 diabetes mellitus with other specified complication (principal); J43.9 Emphysema, unspecified; I10 Essential (primary) hypertension | CPT/HCPCS: 82274 ==

== ENCOUNTER → 2022-06-01 | Outpatient (CLI) | payer OTHER ==
[2022-06-01 09:14] LABS: Potassium 4.6 mmol/L (3.5-5.1)
[2022-06-01 09:18] LABS: BUN/Creatinine Ratio 37.2; Calcium 9.6 mg/dL (8.5-10.1)
== END | disposition home or self-care (01) ==
LOC: LAB 08:27
PROVIDERS: ATTEND Internal Medicine
DX: E11.22 Type 2 diabetes mellitus with diabetic chronic kidney disease (principal); N18.9 Chronic kidney disease, unspecified
CPT/HCPCS: 36415; 80048; 82274; 82306; 83036

== ENCOUNTER → 2022-06-09 | Outpatient (CLI) | payer OTHER | END | disposition home or self-care (01) | LOC: US 10:23 | PROVIDERS: ATTEND Internal Medicine | DX: E04.2 Nontoxic multinodular goiter (principal); E11.22 Type 2 diabetes mellitus with diabetic chronic kidney disease; N18.9 Chronic kidney disease, unspecified | CPT/HCPCS: 76536; 76942 ==

== ENCOUNTER → 2022-07-09 | Outpatient (CLI) | payer OTHER | END | disposition home or self-care (01) | LOC: LAB 13:05 | PROVIDERS: ATTEND Internal Medicine | DX: R19.7 Diarrhea, unspecified (principal) | CPT/HCPCS: 82274; 85048; 87045; 87177; 87427 ==

== ENCOUNTER → 2022-08-31 | Outpatient (CLI) | payer OTHER | END | disposition home or self-care (01) | LOC: Rad HDHVI 09:48 | PROVIDERS: ATTEND Internal Medicine Cardiovascular Disease | DX: I08.0 Rheumatic disorders of both mitral and aortic valves (principal); R00.2 Palpitations; R06.02 Shortness of breath | CPT/HCPCS: 93306 ==

== ENCOUNTER → 2023-07-11 | Outpatient (CLI) | payer OTHER ==
[2023-07-11 11:01] LABS: Basophils # (auto) 0 10 ^3/uL (0-0.2); Basophils % (auto) 0.3 % (0.0-2.0); Eosinophils # (auto) 0.5 10 ^3/uL (0-0.8); Eosinophils % (auto) 4.1 % (0.0-7.0); Hematocrit 37.7 % (41.0-53.0); Hemoglobin 12.6 g/dL (13.5-17.5); Lymphocytes # (auto) 1.6 10 ^3/uL (0.4-5.4); Lymphocytes % (auto) 14.3 % (10.0-50.0); Mean Corpuscular Hemoglobin 28.7 pg (28.0-32.0); Mean Corpuscular Hgb Conc. 33.3 g/dL (32.0-36.0); Mean Corpuscular Volume 86.3 fL (80.0-100.0); Monocytes # (auto) 0.7 10 ^3/uL (0-1.3); Neutrophils # (auto) 8.6 10 ^3/uL (1.6-8.6); Neutrophils % (auto) 75.3 % (37.0-80.0); Nucleated Red Blood Cells % 0.1 %; Red Blood Cells 4.38 10^6/uL (4.5-5.90); Red Cell Distribution Width 14.8 % (11.8-14.3); White Blood Cell 11.4 10^3/uL (4.4-10.8)
[2023-07-11 11:40] LABS: Alanine Aminotransferase 18 U/L (7-40); Alkaline Phosphatase 107 U/L (46-116); Anion Gap 7 (5-15); Carbon Dioxide 33 mmol/L (20-30); Chloride 101 mmol/L (98-107); Sodium 141 mmol/L (136-145)
[2023-07-11 11:41] LABS: Albumin 4.6 g/dL (3.2-4.8); BUN/Creatinine Ratio 14.6 (10.0-20.0); Blood Urea Nitrogen 13 mg/dL (9-23); Glucose 196 mg/dL (74-106)
[2023-07-11 11:43] LABS: Aspartate Aminotransferase 19 U/L (13-40); Bilirubin, Total 1.1 mg/dL (0.2-1.0); Total Protein 7.1 g/dL (5.7-8.2)
== END | disposition home or self-care (01) ==
LOC: LAB 10:46
PROVIDERS: ATTEND Internal Medicine
DX: I10 Essential (primary) hypertension (principal)
CPT/HCPCS: 36415; 80053; 85025

== ENCOUNTER 2023-09-01 15:14 | Inpatient (IN) | payer OTHER ==
[~2023-09-01] VITALS: Ht 167.6 cm; Wt 72.9 kg
[~2023-09-01 15:14] MED LIST changes: -CAR3125T PO; +CARV-214 PO
[2023-09-01] MEDS: IPRATROPIUM BROM 0.5 MG/2.5ML INH SOL NEB ONE (16:19)
[2023-09-01] MEDS: ALBUTEROL SULF 2.5 MG/0.5ML(0.5%) NEB SOLN NEB ONE (16:20)
[2023-09-01] MEDS: methylPREDNISolone SOD SUCC 125 MG/2 ML VL IV ONE (16:26)
[2023-09-01] MEDS ORDERED: LEVO500T91 PO (16:30)
[2023-09-01 17:02] LABS: Basophils # (auto) 0 10 ^3/uL (0-0.2); Basophils % (auto) 0.2 % (0.0-2.0); Eosinophils # (auto) 0.2 10 ^3/uL (0-0.8); Hematocrit 34.8 % (41.0-53.0); Hemoglobin 11.4 g/dL (13.5-17.5); Lymphocytes # (auto) 1.6 10 ^3/uL (0.4-5.4); Lymphocytes % (auto) 13.6 % (10.0-50.0); Mean Corpuscular Hemoglobin 28.3 pg (28.0-32.0); Mean Corpuscular Hgb Conc. 32.8 g/dL (32.0-36.0); Mean Corpuscular Volume 86.5 fL (80.0-100.0); Monocytes # (auto) 0.7 10 ^3/uL (0-1.3); Neutrophils # (auto) 9.1 10 ^3/uL (1.6-8.6); Neutrophils % (auto) 78.2 % (37.0-80.0); Red Blood Cells 4.02 10^6/uL (4.5-5.90); Red Cell Distribution Width 14.6 % (11.8-14.3); White Blood Cell 11.6 10^3/uL (4.4-10.8)
[2023-09-01 17:20] LABS: Alanine Aminotransferase 24 U/L (7-40); Alkaline Phosphatase 100 U/L (46-116); Anion Gap 7 (5-15); BUN/Creatinine Ratio 21.7 (10.0-20.0); Blood Urea Nitrogen 18 mg/dL (9-23); Calcium 9.5 mg/dL (8.5-10.1); Carbon Dioxide 27 mmol/L (20-30); Chloride 107 mmol/L (98-107); Glucose 188 mg/dL (74-106); Potassium 4.7 mmol/L (3.5-5.1); Sodium 141 mmol/L (136-145)
[2023-09-01 17:21] LABS: Albumin 4.3 g/dL (3.2-4.8); Aspartate Aminotransferase 17 U/L (13-40); Total Protein 6.6 g/dL (5.7-8.2)
[2023-09-01 17:22] LABS: Bilirubin, Total 0.6 mg/dL (0.2-1.0)
[2023-09-01] MEDS ORDERED: HYDROcodone-ACET 5/325MG TAB PO PRN (23:30)
[2023-09-01] MEDS ORDERED: ACETAMINOPHEN 325 MG TAB PO PRN (23:30)
[2023-09-01] MEDS ORDERED: DEXTROSE (50%) 50ML SYRG IV PRN (23:30)
[2023-09-01] MEDS ORDERED: DOCUSATE SOD 100 MG CAP PO PRN (23:30)
[2023-09-01] MEDS ORDERED: ONDANSETRON HCL 4 MG/2 ML VIAL IV PRN (23:30)
[2023-09-01 23:37] VITALS: BP 162/74; PULSE 85; RESP 20; O2SAT 95
[2023-09-02] VITALS (15 sets, daily range): BP systolic 128–152; BP diastolic 53–74; PULSE 75–105; RESP 18–20; TEMP 97.1–98.2; O2SAT 91–99
[2023-09-02] MEDS ORDERED: MORPHINE SULFATE INJ 2 MG/ml SYRG IV PRN
[2023-09-02] MEDS ORDERED: NITROGLYCERIN 0.4 MG SL TAB SL PRN
[2023-09-02] MEDS: levoFLOXacin 500MG 100 ML IV SCH (00:48)
[2023-09-02] MEDS: levoFLOXacin 500MG 100 ML IV ONE (00:48)
[2023-09-02] MEDS: InsuLIN REG 1unit/0.01ml Soln (100units/ml) SC SCH ×2 (05:41→21:54)
[2023-09-02] MEDS: methylPREDNISolone SOD SUCC 40 MG/ML VL IV SCH (05:44)
[2023-09-02] MEDS: SODIUM CHLOR 0.9% PF (SALINE LOCK) 10ML VIAL/SYR IV SCH (05:50)
[2023-09-02] MEDS: ACCU-CHEK COMFORT CURVE STRIP VI SCH (05:50)
[2023-09-02 05:52] LABS: Basophils # (auto) 0 10 ^3/uL (0-0.2); Eosinophils # (auto) 0 10 ^3/uL (0-0.8); Hematocrit 32.4 % (41.0-53.0); Lymphocytes # (auto) 0.6 10 ^3/uL (0.4-5.4); Lymphocytes % (auto) 6.4 % (10.0-50.0); Mean Corpuscular Hemoglobin 29.4 pg (28.0-32.0); Mean Corpuscular Volume 86.4 fL (80.0-100.0); Monocytes # (auto) 0.2 10 ^3/uL (0-1.3); Monocytes % (auto) 2.3 % (0.0-12.0); Neutrophils # (auto) 8.7 10 ^3/uL (1.6-8.6); Neutrophils % (auto) 91.3 % (37.0-80.0); Nucleated Red Blood Cells % 0.1 %; Red Blood Cells 3.75 10^6/uL (4.5-5.90); Red Cell Distribution Width 14.6 % (11.8-14.3); White Blood Cell 9.6 10^3/uL (4.4-10.8)
[2023-09-02 06:00] LABS: Alanine Aminotransferase 13 U/L (7-40); Albumin 3.9 g/dL (3.2-4.8); Alkaline Phosphatase 84 U/L (46-116); Anion Gap 9 (5-15); Aspartate Aminotransferase 13 U/L (13-40); BUN/Creatinine Ratio 19.8 (10.0-20.0); Bilirubin, Total 0.5 mg/dL (0.2-1.0); Blood Urea Nitrogen 21 mg/dL (9-23); Calcium 9.4 mg/dL (8.5-10.1); Carbon Dioxide 26 mmol/L (20-30); Chloride 105 mmol/L (98-107); Sodium 140 mmol/L (136-145); Total Protein 6.3 g/dL (5.7-8.2)
[2023-09-02 06:04] LABS: Glucose 376 mg/dL (74-106)
[2023-09-02] MEDS ORDERED: FAMOTIDINE (10MG/ML) 2ML VL IV SCH (10:00)
[2023-09-02] MEDS: ASPirin 81 mg TAB PO SCH ×2 (10:11→12:13)
[2023-09-02] MEDS: PANTOPRAZOLE 40 MG TAB PO SCH (10:11)
[2023-09-02] MEDS: FUROSEMIDE 40 MG/4 ML VIAL IV SCH (10:11)
[2023-09-02 10:40] LABS: Lactic Acid w/Reflex 5.4 mmol/L (0.4-2.0)
[2023-09-02 11:23] LABS: Triglycerides 97 mg/dL (< 150)
[2023-09-02 11:24] LABS: LDL Cholesterol 90 mg/dL (< 100)
[2023-09-02 11:25] LABS: Cholesterol 150 mg/dL (< 200); HDL Cholesterol 43 mg/dL (40-59)
[2023-09-02] MEDS: IPRATROPIUM BROM 0.5 MG/2.5ML INH SOL NEB PRN (11:25)
[2023-09-02] MEDS: ALBUTEROL SULF 2.5 MG/0.5ML(0.5%) NEB SOLN NEB PRN (11:26)
[2023-09-02] MEDS: predniSONE 20 MG TAB PO SCH (12:12)
[2023-09-02] MEDS: CARVEDILOL 3.125 MG TAB PO SCH (12:13)
[2023-09-02] MEDS: ENOXAPARIN SOD 40 MG/0.4 ML SYRINGE SC ONE (12:14)
[2023-09-02] MEDS: CLOPIDOGREL BISULFATE 75 MG TAB PO SCH (12:14)
[2023-09-02] MEDS: AZITHROMYCIN 500MG/ 250ML 250 ML IV SCH (12:14)
[2023-09-02] MEDS: INSULIN LANTUS (GLARGINE) 1 /0.01ml (100units/ml) SC ONE (12:19)
[2023-09-02 12:21] LABS: INR 1.03 (0.9-1.15); Partial Thromboplastin Time 25.7 SEC (24.5-34.5); Prothrombin Time 10.9 sec (9.3-11.8)
[2023-09-02 16:07] LABS: Urine Bacteria None Seen /hpf (None Seen)
[2023-09-02 16:32] LABS: Amphetamine Screen, Urine Neg (NEGATIVE); Barbiturate Scree,Urine Neg (NEGATIVE); Benzodiazephine Screen, Urine Neg (NEGATIVE); Cocaine Screen, Urine Neg (NEGATIVE)
[2023-09-02 16:33] LABS: Cannabinoid Screen, Urine Neg (NEGATIVE); Opiate Scree,Urine Neg (NEGATIVE); Phencyclidine Screen, Urine Neg (NEGATIVE)
[2023-09-02 16:37] LABS: Urine Blood Negative /uL (Negative); Urine Clarity Clear (Clear); Urine Color Light-Yellow (Yellow); Urine Protein, UAD 1+ (Negative); Urine Specific Gravity 1.011 (1.001-1.035); Urine Urobilinogen Normal (Negative); Urine WBC 1 /hpf (0 - 3)
[2023-09-02] MEDS: cefTRIAXone 1GM/50ML D5W 50 ML IV ONE (18:26)
[2023-09-02 21:39] LABS: Lactic Acid w/Reflex 3.1 mmol/L (0.4-2.0)
[2023-09-02] MEDS: ATORVASTATIN 20 MG TAB PO SCH (21:56)
[2023-09-03] VITALS (10 sets, daily range): BP systolic 120–145; BP diastolic 53–61; PULSE 64–93; RESP 18–22; TEMP 36.7; O2SAT 91–99
[2023-09-03] MEDS: INSULIN LANTUS (GLARGINE) 1 /0.01ml (100units/ml) SC SCH (06:21)
[2023-09-03 06:28] LABS: Basophils # (auto) 0 10 ^3/uL (0-0.2); Basophils % (auto) 0.1 % (0.0-2.0); Eosinophils # (auto) 0 10 ^3/uL (0-0.8); Eosinophils % (auto) 0.1 % (0.0-7.0); Hematocrit 30.7 % (41.0-53.0); Hemoglobin 9.9 g/dL (13.5-17.5); Lymphocytes # (auto) 1.4 10 ^3/uL (0.4-5.4); Lymphocytes % (auto) 10.8 % (10.0-50.0); Mean Corpuscular Hemoglobin 28.6 pg (28.0-32.0); Mean Corpuscular Hgb Conc. 32.4 g/dL (32.0-36.0); Mean Corpuscular Volume 88.5 fL (80.0-100.0); Monocytes % (auto) 7.7 % (0.0-12.0); Neutrophils # (auto) 10.4 10 ^3/uL (1.6-8.6); Neutrophils % (auto) 81.3 % (37.0-80.0); Red Blood Cells 3.46 10^6/uL (4.5-5.90); Red Cell Distribution Width 14.7 % (11.8-14.3); White Blood Cell 12.8 10^3/uL (4.4-10.8)
[2023-09-03 06:51] LABS: Anion Gap 9 (5-15); Carbon Dioxide 27 mmol/L (20-30); Chloride 104 mmol/L (98-107); Potassium 3.9 mmol/L (3.5-5.1); Sodium 140 mmol/L (136-145)
[2023-09-03 06:57] LABS: BUN/Creatinine Ratio 28.7 (10.0-20.0); Blood Urea Nitrogen 29 mg/dL (9-23)
[2023-09-03 06:58] LABS: Magnesium 2.2 mg/dL (1.6-2.6)
[2023-09-03 07:15] LABS: Glucose 151 mg/dL (74-106)
[2023-09-03] MEDS: cefTRIAXone 1GM/50ML D5W 50 ML IV SCH (09:18)
[2023-09-03] MEDS: ENOXAPARIN SOD 40 MG/0.4 ML SYRINGE SC SCH (09:19)
[2023-09-03 12:18] LABS: COVID19 ANTIGEN SOFIA FIA NEGATIVE (NEGATIVE)
[2023-09-03 12:19] LABS: Rapid Influenza A Negative (Negative); Rapid Influenza B Negative (Negative)
[2023-09-03] MEDS: FUROSEMIDE 40 MG/4 ML VIAL IV SCH (21:26)
[2023-09-03] MEDS: MUPIROCIN 2% OINT 15gm or 22gm FOR MRSA NARES EACHNOSTRI SCH (21:27)
[2023-09-04] VITALS (7 sets, daily range): BP systolic 125–155; BP diastolic 52–78; PULSE 71–87; RESP 16–20; TEMP 97.8–98.3; O2SAT 96–99
[2023-09-04 07:18] LABS: Chloride 103 mmol/L (98-107); Potassium 3.8 mmol/L (3.5-5.1); Sodium 141 mmol/L (136-145)
[2023-09-04 07:19] LABS: Anion Gap 7 (5-15); Calcium 9.2 mg/dL (8.7-10.4); Carbon Dioxide 31 mmol/L (20-30)
[2023-09-04 07:24] LABS: BUN/Creatinine Ratio 27.4 (10.0-20.0); Blood Urea Nitrogen 29 mg/dL (9-23); Glucose 146 mg/dL (74-106)
[2023-09-04 07:25] LABS: Magnesium 2.4 mg/dL (1.6-2.6)
[2023-09-04 07:41] LABS: Basophils # (auto) 0 10 ^3/uL (0-0.2); Basophils % (auto) 0.2 % (0.0-2.0); Eosinophils # (auto) 0.1 10 ^3/uL (0-0.8); Eosinophils % (auto) 0.6 % (0.0-7.0); Hematocrit 34.7 % (41.0-53.0); Hemoglobin 11.4 g/dL (13.5-17.5); Lymphocytes # (auto) 2.6 10 ^3/uL (0.4-5.4); Lymphocytes % (auto) 16.5 % (10.0-50.0); Mean Corpuscular Hemoglobin 28.6 pg (28.0-32.0); Mean Corpuscular Hgb Conc. 32.9 g/dL (32.0-36.0); Mean Corpuscular Volume 86.8 fL (80.0-100.0); Monocytes # (auto) 1.1 10 ^3/uL (0-1.3); Monocytes % (auto) 7.1 % (0.0-12.0); Neutrophils # (auto) 11.7 10 ^3/uL (1.6-8.6); Neutrophils % (auto) 75.6 % (37.0-80.0); Nucleated Red Blood Cells % 0.1 %; Red Blood Cells 3.99 10^6/uL (4.5-5.90); Red Cell Distribution Width 14.3 % (11.8-14.3); White Blood Cell 15.5 10^3/uL (4.4-10.8)
[2023-09-04] MEDS: DOXYCYCLINE 100MG/250ML 250 ML IV SCH (09:15)
[2023-09-04 11:38] LABS: Basophils # (auto) 0 10 ^3/uL (0-0.2); Basophils % (auto) 0.1 % (0.0-2.0); Eosinophils # (auto) 0.2 10 ^3/uL (0-0.8); Eosinophils % (auto) 1.4 % (0.0-7.0); Hematocrit 33.8 % (41.0-53.0); Hemoglobin 11.2 g/dL (13.5-17.5); Lymphocytes # (auto) 1.6 10 ^3/uL (0.4-5.4); Lymphocytes % (auto) 11.8 % (10.0-50.0); Mean Corpuscular Hemoglobin 28.6 pg (28.0-32.0); Mean Corpuscular Hgb Conc. 33.1 g/dL (32.0-36.0); Mean Corpuscular Volume 86.7 fL (80.0-100.0); Monocytes # (auto) 1.1 10 ^3/uL (0-1.3); Monocytes % (auto) 7.8 % (0.0-12.0); Neutrophils # (auto) 10.7 10 ^3/uL (1.6-8.6); Neutrophils % (auto) 78.9 % (37.0-80.0); Red Cell Distribution Width 14.6 % (11.8-14.3); White Blood Cell 13.6 10^3/uL (4.4-10.8)
[2023-09-04] MEDS ORDERED: DOXY100T51 PO (11:51)
[2023-09-04] MEDS ORDERED: AUG875T PO ×2 (11:51→13:37)
[2023-09-04] MEDS ORDERED: POTA-36 PO ×2 (11:51→13:37)
[2023-09-04] MEDS ORDERED: PRED20TA2 PO ×2 (11:51→13:37)
[2023-09-04] MEDS ORDERED: SACU1TAB PO (11:51)
[2023-09-04] MEDS ORDERED: MUPI2OIN2 EX ×2 (11:51→14:06)
[2023-09-04] MEDS ORDERED: ALBU1NEB5 IN (11:51)
[2023-09-04] MEDS ORDERED: EMPA1TAB PO ×2 (11:51→13:37)
[2023-09-04] MEDS ORDERED: FURO1TAB33 PO (11:51)
[2023-09-04] MEDS ORDERED: MUPI2CRE17 EX (13:37)
[2023-09-04] MEDS ORDERED: DOXY-448 PO (13:37)
[2023-09-04] MEDS ORDERED: ALBUAER3 IN (14:06)
[2023-09-05 08:43] LABS: Hepatitis B Surface Antigen Negative (Negative)
[2023-09-05 09:05] LABS: Hepatitis C Antibody Negative (Negative)
== END 2023-09-04 16:15 | disposition home or self-care (01) | DRG 871 ==
LOC: ER 15:14 → EDBD 15:14 → TELE 09-02 00:01 → TELE-CENTR 09-02 01:47
PROVIDERS: ADMIT Internal Medicine; ATTEND Emergency Medicine
DX: A41.9 Sepsis, unspecified organism (principal); I50.23 Acute on chronic systolic (congestive) heart failure; J96.21 Acute and chronic respiratory failure with hypoxia; J18.9 Pneumonia, unspecified organism; J44.1 Chronic obstructive pulmonary disease with (acute) exacerbation; J44.0 Chronic obstructive pulmonary disease with (acute) lower respiratory infection; E78.5 Hyperlipidemia, unspecified; Z20.822 Contact with and (suspected) exposure to COVID-19; D72.829 Elevated white blood cell count, unspecified; I25.10 Atherosclerotic heart disease of native coronary artery without angina pectoris; E11.51 Type 2 diabetes mellitus with diabetic peripheral angiopathy without gangrene; I11.0 Hypertensive heart disease with heart failure; Z88.0 Allergy status to penicillin; Z91.09 Other allergy status, other than to drugs and biological substances; Z79.899 Other long term (current) drug therapy; Z79.4 Long term (current) use of insulin; Z79.82 Long term (current) use of aspirin; Z95.0 Presence of cardiac pacemaker
CPT/HCPCS: 36415; 71045; 71250; 80048; 80053; 80061; 80307; 81001; 82962; 83036; 83605; 83735; 83880; 84443; 84484; 85025; 85379; 85610; 85730; 86141; 86301; 86803; 87040; 87070; 87081; 87086; 87205; 87340; 87426; 87804; 93005; 93306; 93971; 94640; G0378; J1815; J1956; J3490

== ENCOUNTER 2023-11-30 07:14 | Inpatient (IN) | payer OTHER ==
[~2023-11-30] VITALS: Ht 167.6 cm; Wt 64.3 kg
[~2023-11-30 07:14] MED LIST changes: +ALBUAER3 IN; +AUG875T PO; +DOXY-448 PO; +EMPA1TAB PO; +INSU70IN3 SC; +LEVO500T91 PO; +MUPI2OIN2 EX; +POTA-228 PO; +POTA-36 PO; +PRED20TA2 PO
[2023-11-30 07:30] VITALS: PULSE 125; RESP 28; O2SAT 89
[2023-11-30] MEDS: dilTIAZem 25 MG/5 ML VIAL IV ONE ×2 (07:36→07:43)
[2023-11-30 07:43] LABS: Base Excess -9.9 mmol/L (-2.0-2.0)
[2023-11-30 08:15] LABS: Basophils # (auto) 0.1 10 ^3/uL (0-0.2); Basophils % (auto) 0.4 % (0.0-2.0); Eosinophils # (auto) 0.2 10 ^3/uL (0-0.8); Eosinophils % (auto) 1.4 % (0.0-7.0); Hematocrit 41.1 % (41.0-53.0); Hemoglobin 13.1 g/dL (13.5-17.5); Lymphocytes # (auto) 3.9 10 ^3/uL (0.4-5.4); Lymphocytes % (auto) 22.3 % (10.0-50.0); Mean Corpuscular Hemoglobin 28.3 pg (28.0-32.0); Mean Corpuscular Hgb Conc. 31.9 g/dL (32.0-36.0); Mean Corpuscular Volume 88.9 fL (80.0-100.0); Monocytes # (auto) 0.9 10 ^3/uL (0-1.3); Monocytes % (auto) 5.1 % (0.0-12.0); Neutrophils # (auto) 12.2 10 ^3/uL (1.6-8.6); Neutrophils % (auto) 70.8 % (37.0-80.0); Nucleated Red Blood Cells % 0.2 %; Red Blood Cells 4.62 10^6/uL (4.5-5.90); Red Cell Distribution Width 16.5 % (11.8-14.3); White Blood Cell 17.3 10^3/uL (4.4-10.8)
[2023-11-30 08:29] LABS: INR 1.03 (0.9-1.15); Partial Thromboplastin Time 27.2 SEC (24.5-34.5); Prothrombin Time 10.9 sec (9.3-11.8)
[2023-11-30 08:35] LABS: Alanine Aminotransferase 26 U/L (7-40); Albumin 4.3 g/dL (3.2-4.8); Alkaline Phosphatase 80 U/L (46-116); Anion Gap 11 (5-15); Aspartate Aminotransferase 19 U/L (13-40); BUN/Creatinine Ratio 13.6 (10.0-20.0); Blood Urea Nitrogen 16 mg/dL (9-23); Calcium 9.5 mg/dL (8.7-10.4); Carbon Dioxide 22 mmol/L (20-30); Chloride 107 mmol/L (98-107); Glucose 372 mg/dL (74-106); Magnesium 2.2 mg/dL (1.6-2.6); Potassium 4.5 mmol/L (3.5-5.1); Sodium 140 mmol/L (136-145)
[2023-11-30 08:36] LABS: Bilirubin, Total 0.8 mg/dL (0.2-1.0)
[2023-11-30] MEDS: AZITHROMYCIN 500MG/ 250ML 250 ML IV ONE (09:40)
[2023-11-30 09:41] LABS: Base Excess -3.5 mmol/L (-2.0-2.0)
[2023-11-30] MEDS ORDERED: NITROGLYCERIN 0.4 MG SL TAB SL PRN (12:45)
[2023-11-30] MEDS ORDERED: MORPHINE SULFATE INJ 2 MG/ml SYRG IV PRN (12:45)
[2023-11-30] MEDS ORDERED: ACETAMINOPHEN 325 MG TAB PO PRN (12:45)
[2023-11-30] MEDS ORDERED: ALBUTEROL SULF 2.5 MG/0.5ML(0.5%) NEB SOLN NEB PRN (12:45)
[2023-11-30] MEDS ORDERED: DEXTROSE (50%) 50ML SYRG IV PRN ×2 (12:45)
[2023-11-30 12:52] VITALS: PULSE 101; RESP 22; O2SAT 98
[2023-11-30] MEDS: ALBUTEROL SULF 2.5 MG/0.5ML(0.5%) NEB SOLN NEB SCH (13:32)
[2023-11-30] MEDS: IPRATROPIUM BROM 0.5 MG/2.5ML INH SOL NEB SCH (13:33)
[2023-11-30] MEDS: ASPirin-EC 81 mg tab PO ONE (13:48)
[2023-11-30] MEDS: cefTRIAXone 1GM/50ML D5W 50 ML IV SCH (15:00)
[2023-11-30] MEDS ORDERED: ACCU-CHEK COMFORT CURVE STRIP VI SCH (17:00)
[2023-11-30] MEDS: ACCU-CHEK COMFORT CURVE STRIP VI SCH (17:41)
[2023-11-30] MEDS: FUROSEMIDE 40 MG/4 ML VIAL IV ONE (17:42)
[2023-11-30] MEDS: InsuLIN REG 1unit/0.01ml Soln (100units/ml) SC SCH ×2 (17:57→22:13)
[2023-11-30 18:30] VITALS: PULSE 107; RESP 18; O2SAT 98
[2023-11-30 18:40] VITALS: PULSE 110; RESP 18; O2SAT 99
[2023-11-30] MEDS ORDERED: ENOXAPARIN SOD 80 MG/0.8ML SYRINGE SC SCH (20:45)
[2023-11-30 21:36] LABS: Rapid Influenza A Negative (Negative); Rapid Influenza B Negative (Negative)
[2023-11-30] MEDS: ENOXAPARIN SOD 80 MG/0.8ML SYRINGE SC SCH (21:55)
[2023-11-30 22:00] VITALS: PULSE 104; RESP 18; O2SAT 95
[2023-11-30 22:10] VITALS: PULSE 101; RESP 18; O2SAT 99
[2023-11-30] MEDS: CARVEDILOL 3.125 MG TAB PO SCH (22:14)
[2023-11-30] MEDS: ATORVASTATIN 20 MG TAB PO SCH (22:15)
[2023-12-01] VITALS (57 sets, daily range): BP systolic 100–163; BP diastolic 59–108; PULSE 89–137; RESP 16–37; TEMP 96.9–98.4; O2SAT 87–100
[2023-12-01 07:22] LABS: Basophils # (auto) 0 10 ^3/uL (0-0.2); Basophils % (auto) 0.5 % (0.0-2.0); Eosinophils # (auto) 0 10 ^3/uL (0-0.8); Eosinophils % (auto) 0.5 % (0.0-7.0); Hematocrit 32.4 % (41.0-53.0); Hemoglobin 10.9 g/dL (13.5-17.5); Lymphocytes # (auto) 1.3 10 ^3/uL (0.4-5.4); Lymphocytes % (auto) 12.4 % (10.0-50.0); Mean Corpuscular Hemoglobin 28.8 pg (28.0-32.0); Mean Corpuscular Hgb Conc. 33.8 g/dL (32.0-36.0); Mean Corpuscular Volume 85.1 fL (80.0-100.0); Monocytes # (auto) 0.8 10 ^3/uL (0-1.3); Monocytes % (auto) 7.4 % (0.0-12.0); Neutrophils # (auto) 8.1 10 ^3/uL (1.6-8.6); Neutrophils % (auto) 79.2 % (37.0-80.0); Nucleated Red Blood Cells % 0.1 %; Red Cell Distribution Width 16.1 % (11.8-14.3); White Blood Cell 10.3 10^3/uL (4.4-10.8)
[2023-12-01 07:35] LABS: Alanine Aminotransferase 34 U/L (7-40); Alkaline Phosphatase 62 U/L (46-116); Anion Gap 9 (5-15); BUN/Creatinine Ratio 25.3 (10.0-20.0); Blood Urea Nitrogen 25 mg/dL (9-23); Calcium 9.3 mg/dL (8.7-10.4); Carbon Dioxide 24 mmol/L (20-30); Chloride 108 mmol/L (98-107); Glucose 99 mg/dL (74-106); Potassium 4.3 mmol/L (3.5-5.1); Sodium 141 mmol/L (136-145)
[2023-12-01 07:36] LABS: Albumin 3.5 g/dL (3.2-4.8); Aspartate Aminotransferase 102 U/L (13-40); Bilirubin, Total 0.9 mg/dL (0.2-1.0); Total Protein 5.6 g/dL (5.7-8.2)
[2023-12-01] MEDS: MIDAZOLAM HCL 2MG/2ML 2ml VIAL (1mg/ml) ONE (09:18)
[2023-12-01] MEDS: ANGIOMAX 250 MG VIAL IV ONE ×2 (09:18→10:32)
[2023-12-01] MEDS: SODIUM CHL 0.9% 0 ML ONE (09:18)
[2023-12-01] MEDS: fentaNYL CITRATE 100 MCG/2 ML VL ONE (09:18)
[2023-12-01] MEDS: IOHEXOL 350 MG/ML 100ML IJ ONE ×2 (09:18→11:23)
[2023-12-01] MEDS: LIDOCAINE 2%HCL (LOCAL ANESTH.) INJ 20ML MDV ONE ×3 (09:19→10:39)
[2023-12-01] MEDS: ASPirin 81 mg TAB PO SCH (09:32)
[2023-12-01] MEDS: CLOPIDOGREL BISULFATE 75 MG TAB PO SCH (09:33)
[2023-12-01] MEDS: EMPAGLIFLOZIN 10 MG TAB PO SCH (09:33)
[2023-12-01] MEDS: PANTOPRAZOLE 40 MG/10 ML VIAL INJ IV SCH (09:56)
[2023-12-01] MEDS: AZITHROMYCIN 500MG/ 250ML 250 ML IV SCH (09:57)
[2023-12-01] MEDS ORDERED: ASPirin 81 mg TAB PO SCH (10:00)
[2023-12-01] MEDS ORDERED: ENOXAPARIN SOD 40 MG/0.4 ML SYRINGE SC SCH (10:00)
[2023-12-01 10:20] LABS: Magnesium 2.1 mg/dL (1.6-2.6)
[2023-12-01 10:21] LABS: Phosphorus 3.9 mg/dL (2.4-5.1)
[2023-12-01] MEDS: SODIUM CHL 0.9% 50 ML ONE (10:32)
[2023-12-01] MEDS: ASPirin 325 MG TAB ONE (11:22)
[2023-12-01] MEDS: CLOPIDOGREL BISULFATE 75 MG TAB ONE ×2 (11:23)
[2023-12-01] MEDS ORDERED: LEVALBUTEROL HCL 1.25 MG/3 ML NEB NEB SCH (12:00)
[2023-12-01] MEDS: FUROSEMIDE 20 MG/2 ML VIAL ONE (12:05)
[2023-12-01] MEDS: FUROSEMIDE 40 MG/4 ML VIAL IV ONE (12:15)
[2023-12-01] MEDS: METOPROLOL TARTRATE 1MG/1ML-5ML VIAL IV ONE ×4 (12:33→14:24)
[2023-12-01 13:47] LABS: Base Excess -3.5 mmol/L (-2.0-2.0)
[2023-12-01] MEDS: DOBUTamine 1000MCG/ML 250 ML IV ONE (14:28)
[2023-12-01] MEDS ORDERED: LOSA-534 PO (14:28)
[2023-12-01] MEDS ORDERED: METF-1145 PO (14:28)
[2023-12-01] MEDS ORDERED: DIGO0.12 PO (14:31)
[2023-12-01] MEDS: DOBUTamine 1000MCG/ML 250 ML IV SCH (14:34)
[2023-12-01] MEDS: FUROSEMIDE INJECTION 100 MG in D5W 5% 100 ML IV SCH (14:55)
[2023-12-01] MEDS: METOPROLOL TARTRATE 50 MG TAB PO SCH (20:58)
[2023-12-02] VITALS (92 sets, daily range): BP systolic 95–139; BP diastolic 46–83; PULSE 81–112; RESP 17–41; TEMP 97–98.3; O2SAT 87–100
[2023-12-02 03:57] LABS: Basophils # (auto) 0 10 ^3/uL (0-0.2); Basophils % (auto) 0.2 % (0.0-2.0); Eosinophils # (auto) 0 10 ^3/uL (0-0.8); Eosinophils % (auto) 0.1 % (0.0-7.0); Hemoglobin 11.8 g/dL (13.5-17.5); Lymphocytes # (auto) 0.8 10 ^3/uL (0.4-5.4); Lymphocytes % (auto) 7.9 % (10.0-50.0); Mean Corpuscular Hemoglobin 29.3 pg (28.0-32.0); Mean Corpuscular Hgb Conc. 33.8 g/dL (32.0-36.0); Mean Corpuscular Volume 86.6 fL (80.0-100.0); Monocytes # (auto) 1.1 10 ^3/uL (0-1.3); Monocytes % (auto) 10.2 % (0.0-12.0); Neutrophils # (auto) 8.5 10 ^3/uL (1.6-8.6); Neutrophils % (auto) 81.6 % (37.0-80.0); Nucleated Red Blood Cells % 0.1 %; Red Blood Cells 4.04 10^6/uL (4.5-5.90); Red Cell Distribution Width 16.5 % (11.8-14.3); White Blood Cell 10.4 10^3/uL (4.4-10.8)
[2023-12-02 04:14] LABS: Alanine Aminotransferase 36 U/L (7-40); Albumin 3.7 g/dL (3.2-4.8); Alkaline Phosphatase 64 U/L (46-116); Anion Gap 11 (5-15); Aspartate Aminotransferase 52 U/L (13-40); BUN/Creatinine Ratio 19.7 (10.0-20.0); Blood Urea Nitrogen 23 mg/dL (9-23); Calcium 9.4 mg/dL (8.7-10.4); Carbon Dioxide 27 mmol/L (20-30); Chloride 102 mmol/L (98-107); Glucose 98 mg/dL (74-106); Sodium 140 mmol/L (136-145); Total Protein 6.6 g/dL (5.7-8.2)
[2023-12-02] MEDS: ERGOCALCIFEROL 50,000 UNIT(1.25MG) CAP PO SCH (07:03)
[2023-12-02] MEDS: CYANOCOBALAMIN 500 MCG TAB PO ONE (07:03)
[2023-12-02 07:42] LABS: Urine Bacteria FEW /hpf (None Seen); Urine Blood 1+ /uL (Negative); Urine Clarity Turbid (Clear); Urine Color Colorless (Yellow); Urine Hyaline Cast FEW /lpf (0 - 2); Urine Mucus FEW (None Seen); Urine Protein, UAD Negative (Negative); Urine Specific Gravity 1.017 (1.001-1.035); Urine Urobilinogen Normal (Negative); Urine WBC 1 /hpf (0 - 3)
[2023-12-02 07:48] LABS: Amphetamine Screen, Urine Neg (NEGATIVE); Barbiturate Scree,Urine Neg (NEGATIVE); Benzodiazephine Screen, Urine Neg (NEGATIVE); Cannabinoid Screen, Urine Neg (NEGATIVE); Cocaine Screen, Urine Neg (NEGATIVE); Opiate Scree,Urine Neg (NEGATIVE); Phencyclidine Screen, Urine Neg (NEGATIVE)
[2023-12-02] MEDS: LEVALBUTEROL HCL 1.25 MG/3 ML NEB NEB SCH ×2 (10:37→14:51)
[2023-12-02] MEDS ORDERED: LEVALBUTEROL HCL 1.25 MG/3 ML NEB NEB SCH (12:00)
[2023-12-02 15:32] LABS: Base Excess 2.8 mmol/L (-2.0-2.0)
[2023-12-02] MEDS: ENOXAPARIN SOD 60 MG/0.6 ML SYRINGE SC SCH (22:17)
[2023-12-02] MEDS: MUPIROCIN 2% OINT 15gm or 22gm FOR MRSA NARES EACHNOSTRI SCH (22:24)
[2023-12-03] VITALS (40 sets, daily range): BP systolic 89–136; BP diastolic 34–69; PULSE 75–114; RESP 15–34; TEMP 97.9–99; O2SAT 93–100
[2023-12-03 06:17] LABS: Basophils # (auto) 0 10 ^3/uL (0-0.2); Basophils % (auto) 0.1 % (0.0-2.0); Eosinophils # (auto) 0.1 10 ^3/uL (0-0.8); Eosinophils % (auto) 1.4 % (0.0-7.0); Hematocrit 32.2 % (41.0-53.0); Lymphocytes % (auto) 10.9 % (10.0-50.0); Mean Corpuscular Hgb Conc. 34.1 g/dL (32.0-36.0); Mean Corpuscular Volume 85.1 fL (80.0-100.0); Monocytes # (auto) 0.8 10 ^3/uL (0-1.3); Monocytes % (auto) 9.4 % (0.0-12.0); Neutrophils # (auto) 6.8 10 ^3/uL (1.6-8.6); Neutrophils % (auto) 78.2 % (37.0-80.0); Nucleated Red Blood Cells % 0.1 %; Red Blood Cells 3.78 10^6/uL (4.5-5.90); Red Cell Distribution Width 16.2 % (11.8-14.3); White Blood Cell 8.7 10^3/uL (4.4-10.8)
[2023-12-03 06:38] LABS: Alanine Aminotransferase 31 U/L (7-40); Albumin 3.7 g/dL (3.2-4.8); Alkaline Phosphatase 63 U/L (46-116); Anion Gap 11 (5-15); BUN/Creatinine Ratio 23.3 (10.0-20.0); Blood Urea Nitrogen 31 mg/dL (9-23); Calcium 8.9 mg/dL (8.7-10.4); Carbon Dioxide 32 mmol/L (20-30); Chloride 98 mmol/L (98-107); Glucose 136 mg/dL (74-106); Magnesium 1.9 mg/dL (1.6-2.6); Sodium 141 mmol/L (136-145)
[2023-12-03 06:39] LABS: Bilirubin, Total 0.9 mg/dL (0.2-1.0); Phosphorus 4.6 mg/dL (2.4-5.1); Total Protein 6.2 g/dL (5.7-8.2)
[2023-12-03 06:52] LABS: Aspartate Aminotransferase 29 U/L (13-40)
[2023-12-03] MEDS: CYANOCOBALAMIN 500 MCG TAB PO SCH (09:05)
[2023-12-03] MEDS: POTASSIUM CHL 20MEQ/100ML 100 ML IV SCH (09:05)
[2023-12-03] MEDS: MAGNESIUM SULFATE 1GM/100ML 100 ML IV ONE (09:08)
[2023-12-03] MEDS: POTASSIUM CHL 20 Meq TABLET PO ONE (09:47)
[2023-12-03] MEDS: MAGNESIUM OXIDE 400 MG TAB PO ONE (09:48)
[2023-12-03] MEDS: LACTULOSE 20Gm/30ML SOLN PO ONE (15:06)
[2023-12-03] MEDS: FUROSEMIDE 40 MG/4 ML VIAL IV SCH (17:00)
[2023-12-03] MEDS: LACTULOSE 20Gm/30ML SOLN PO SCH (21:31)
[2023-12-04] VITALS (31 sets, daily range): BP systolic 105–133; BP diastolic 27–75; PULSE 57–113; RESP 16–25; TEMP 98.4–99.4; O2SAT 92–100
[2023-12-04 05:21] LABS: Chloride 103 mmol/L (98-107); Potassium 3.6 mmol/L (3.5-5.1); Sodium 143 mmol/L (136-145)
[2023-12-04 05:22] LABS: Anion Gap 7 (5-15); Calcium 9.1 mg/dL (8.7-10.4); Carbon Dioxide 33 mmol/L (20-30)
[2023-12-04 05:27] LABS: BUN/Creatinine Ratio 24.8 (10.0-20.0); Blood Urea Nitrogen 32 mg/dL (9-23); Glucose 133 mg/dL (74-106)
[2023-12-04] MEDS ORDERED: ASPI-325 PO (11:38)
[2023-12-04] MEDS ORDERED: POTA-228 PO (11:38)
[2023-12-04] MEDS ORDERED: CLOP75TA28 PO (11:38)
[2023-12-04] MEDS ORDERED: EMPA1TAB PO (11:38)
[2023-12-04] MEDS ORDERED: ATOR40TA52 PO (11:38)
[2023-12-04] MEDS ORDERED: CYAN500T3 PO (11:38)
[2023-12-04] MEDS ORDERED: FURO1TAB31 PO (11:38)
[2023-12-04] MEDS ORDERED: CARV6.2551 PO (11:38)
[2023-12-04] MEDS: POTASSIUM EFFERVESENT TAB 25 MEQ PO ONE (16:11)
[2023-12-05] VITALS (24 sets, daily range): BP systolic 105–128; BP diastolic 51–67; PULSE 67–95; RESP 14–20; TEMP 37.1; O2SAT 92–100
[2023-12-05] MEDS ORDERED: [UNRECOGNIZED DRUG - OTHER] PO SCH (22:00)
[2023-12-06] MEDS ORDERED: DIGOXIN 0.125 MG TAB PO SCH (10:00)
== END 2023-12-05 16:00 | disposition home health service (06) | DRG 323 ==
LOC: ER 07:14 → TELE 12:35 → TELE-WESTW 23:56 → ICU WEST 12-01 16:37 → DOU IN ICU 12-02 16:44 → TELE-EAST 12-04 17:14
PROVIDERS: ADMIT Internal Medicine; ATTEND Internal Medicine
PROC: 5A09357 Assistance with Respiratory Ventilation, Less than 24 Consecutive Hours, Continuous Positive Airway Pressure (ICD-10-PCS; principal; 2023-11-30)
PROC: 027035Z Dilation of Coronary Artery, One Artery with Two Drug-eluting Intraluminal Devices, Percutaneous Approach (ICD-10-PCS; 2023-12-01)
PROC: 02F03ZZ Fragmentation in Coronary Artery, One Artery, Percutaneous Approach (ICD-10-PCS; 2023-12-01)
PROC: 4A023N7 Measurement of Cardiac Sampling and Pressure, Left Heart, Percutaneous Approach (ICD-10-PCS; 2023-12-01)
PROC: B211YZZ Fluoroscopy of Multiple Coronary Arteries using Other Contrast (ICD-10-PCS; 2023-12-01)
DX: I21.4 Non-ST elevation (NSTEMI) myocardial infarction (principal); I50.43 Acute on chronic combined systolic (congestive) and diastolic (congestive) heart failure; J96.21 Acute and chronic respiratory failure with hypoxia; N17.0 Acute kidney failure with tubular necrosis; J44.1 Chronic obstructive pulmonary disease with (acute) exacerbation; J90 Pleural effusion, not elsewhere classified; I11.0 Hypertensive heart disease with heart failure; I25.10 Atherosclerotic heart disease of native coronary artery without angina pectoris; E78.5 Hyperlipidemia, unspecified; E11.9 Type 2 diabetes mellitus without complications; I25.5 Ischemic cardiomyopathy; E55.9 Vitamin D deficiency, unspecified; E53.8 Deficiency of other specified B group vitamins; Z95.5 Presence of coronary angioplasty implant and graft; Z88.0 Allergy status to penicillin; Z87.891 Personal history of nicotine dependence
CPT/HCPCS: 36415; 36600; 71045; 71275; 80048; 80053; 80061; 80307; 81001; 82306; 82607; 82805; 82962; 83036; 83735; 83880; 84100; 84443; 84484; 85025; 85379; 85610; 85730; 87081; 87804; 92941; 92972; 93005; 93458; 94640; 94660; 97163; 99152; 99291; G0378; J1815; J2250; J2470; J3480; J7060

== ENCOUNTER → 2024-03-27 | Outpatient (CLI) | payer OTHER ==
[~2024-03-27] MED LIST changes: +ASPI-325 PO; -ASPI81CH43 PO; -AUG875T PO; -CARV-214 PO; +CARV6.2551 PO; +CYAN500T3 PO; +DIGO0.12 PO; -DOXY-448 PO; -INS7030I SC; -LEVO500T91 PO; +METF-1145 PO; -MUPI2OIN2 EX; -POTA-36 PO; -PRED20TA2 PO
[2024-03-27 10:13] VITALS: BP 134/64; PULSE 95; RESP 64; O2SAT 96
[2024-03-27 10:20] VITALS: BP 146/66; PULSE 81; RESP 18; O2SAT 96
--- NOTE | 2024-03-27 12:18 | DVH ---
EXAM: XY CHEST TWO VIEWS ROUTINE CLINICAL HISTORY: Pain COMPARISON: None TECHNIQUE: Frontal and lateral view of the chest was obtained FINDINGS: Lines and Tubes: Cardiac pacemaker projects over left chest wall. Lungs: No focal consolidation. Pleura: No effusion. No pneumothorax. Cardiomediastinal contours: Unremarkable. Atherosclerotic vascular calcifications of the thoracic aor ta are noted. Bones: No acute osseous abnormality. IMPRESSION: No acute cardiopulmonary disease.
== END | disposition home or self-care (01) ==
LOC: Rad HDHVI 10:06
PROVIDERS: ATTEND Internal Medicine Cardiovascular Disease
DX: Z01.818 Encounter for other preprocedural examination (principal)
CPT/HCPCS: 71046; 93005; G0463

== ENCOUNTER 2024-03-29 08:47 | Day surgery (SDC) | payer OTHER ==
[2024-03-27 12:28] LABS: Basophils # (auto) 0 10 ^3/uL (0-0.2); Basophils % (auto) 0.1 % (0.0-2.0); Eosinophils # (auto) 0.4 10 ^3/uL (0-0.8); Eosinophils % (auto) 4.5 % (0.0-7.0); Hematocrit 33.5 % (41.0-53.0); Hemoglobin 11.7 g/dL (13.5-17.5); Lymphocytes % (auto) 21.3 % (10.0-50.0); Mean Corpuscular Hemoglobin 29.9 pg (28.0-32.0); Mean Corpuscular Volume 85.4 fL (80.0-100.0); Monocytes # (auto) 0.7 10 ^3/uL (0-1.3); Monocytes % (auto) 7.2 % (0.0-12.0); Neutrophils # (auto) 6.2 10 ^3/uL (1.6-8.6); Neutrophils % (auto) 66.9 % (37.0-80.0); Platelet Count (auto) 193 10^3/uL (140-450); Red Blood Cells 3.92 10^6/uL (4.5-5.90); Red Cell Distribution Width 15.3 % (11.8-14.3); White Blood Cell 9.2 10^3/uL (4.4-10.8)
[2024-03-27 12:39] LABS: INR 1.04 (0.9-1.15)
[2024-03-27 13:09] LABS: Alkaline Phosphatase 111 U/L (46-116); Aspartate Aminotransferase 30 U/L (13-40)
[2024-03-27 13:10] LABS: Albumin 4.6 g/dL (3.2-4.8); Anion Gap 7 (5-15); BUN/Creatinine Ratio 32.4 (10.0-20.0); Bilirubin, Total 0.7 mg/dL (0.2-1.0); Blood Urea Nitrogen 34 mg/dL (9-23); Calcium 10.5 mg/dL (8.7-10.4); Carbon Dioxide 29 mmol/L (20-31); Chloride 102 mmol/L (98-107); Glucose 203 mg/dL (74-106); Potassium 5.1 mmol/L (3.5-5.1); Sodium 138 mmol/L (136-145); Total Protein 7.3 g/dL (5.7-8.2)
[2024-03-27 13:26] LABS: Alanine Aminotransferase 58 U/L (7-40)
[2024-03-29] VITALS (7 sets, daily range): BP systolic 121–137; BP diastolic 58–78; PULSE 104–120; RESP 13–24; O2SAT 90–97
[~2024-03-29] VITALS: Ht 167.6 cm; Wt 61.7 kg
[~2024-03-29 08:47] MED LIST changes: +ALBU108A5 IN; -EMPA1TAB PO; -INSU70IN3 SC; +LOSA-534 PO; -POTA-228 PO
[2024-03-29] MEDS ORDERED: IOHEXOL 350 MG/ML 100ML IJ ONE ×3 (12:09→13:06)
[2024-03-29] MEDS ORDERED: LIDOCAINE 2%HCL (LOCAL ANESTH.) INJ 20ML MDV ONE (12:25)
[2024-03-29] MEDS ORDERED: ANGIOMAX 250 MG VIAL IV ONE ×2 (12:25→13:45)
[2024-03-29] MEDS ORDERED: MIDAZOLAM HCL 2MG/2ML 2ml VIAL (1mg/ml) ONE (12:25)
[2024-03-29] MEDS ORDERED: SODIUM CHL 0.9% 50 ML ONE ×2 (12:25→13:45)
[2024-03-29] MEDS ORDERED: fentaNYL CITRATE 100 MCG/2 ML VL ONE (12:25)
[2024-03-29] MEDS ORDERED: CLOPIDOGREL BISULFATE 75 MG TAB ONE (13:49)
--- NOTE | 2024-03-29 14:49 | DVHHP ---
ADMIT DATE: 03/29/2024 HISTORY OF PRESENT ILLNESS: The patient is an 83-year-old with history of hyperlipidemia, hypertension, ischemic cardiomyopathy status post Bi-V AICD implantation. He now has episodes of SVT, otherwise, unremarkable at times. It is recommended that patient undergo left heart catheterization. He still has LAD that needs to be revascularized. Digoxin 0.125 mg was initiated. Echo was initiated and shows an ejection fraction less than 20%. Because of the patient's high-grade narrowing of the ramus branch as well as possible in-stent restenosis of the RCA, I feel the patient should undergo coronary angiography. He has been having progressive symptoms of chest pain as well. PERTINENT MEDICAL HISTORY: Significant for history of hyperlipidemia, hypertension. He denies any history of CVA. Denies any history of seizure disorder. Denies any history of hematuria or bleeding diathesis. He is on Plavix 75 mg p.o. daily. He has multiple stents placed, already has seven stents in all, had a Bi-V AICD implanted because ejection fraction was less than 20%. PHYSICAL EXAMINATION: VITAL SIGNS: Blood pressure is 126/60, pulse of 110 and regular, O2 saturation 90% on 2 liters of O2, we will increase it to 3 L. HEENT: Pupils are reactive. Funduscopic exam is benign. Sclerae anicteric. No exudates noted. Tympanic membranes are negative. Oral mucosa moist. Posterior pharynx without any exudate. NECK: Supple. No nuchal rigidity. No cervical adenopathy, no supraclavicular adenopathy. Carotid pulses are 2+ symmetrical, normal upstroke and contour. No JVD appreciated. PULMONARY: Some scattered rhonchi at the bases, otherwise, unremarkable. CARDIOVASCULAR: Regular rate without S3, without S4. PMI is diffuse, laterally displaced. ABDOMEN: Soft, nontender, normal bowel sounds. Liver approximately 5 cm. NEUROLOGIC: The patient is intact. EXTREMITIES: 1+ pulses. ASSESSMENT AND PLAN: Thus, the patient with ischemic cardiomyopathy, multiple stents have been placed, Bi-V AICD, history of peripheral vascular disease, history of hypertension, ischemia, now with ongoing chest pain, shortness of breath, and episodes of nonsustained VT. Therefore, the patient is to undergo coronary angiography to define coronary anatomy. Further recommendations after the angiogram. Joel Pappas MD SA/MARIELA/ALOK TID: [id number] RECEIPT: [id number]
--- NOTE | 2024-03-29 15:01 | DVHOP ---
DATE OF SURGERY: 03/29/2024 PROCEDURES PERFORMED: * Selective left and right coronary angiography. * Ventriculogram. * Thrombectomy of the ostial RCA because of in-stent restenosis. * Status post angioplasty with stent placement of the in-stent restenosis with a 3.5 x 26 mm [place] stent. * Angioplasty with thrombectomy of the ramus branch and stents x 2; 3.0 x 26 and a 3.0 x 12 mm stents were placed in the ramus branch. * Conscious sedation was given. DESCRIPTION OF PROCEDURE: The patient was prepped and draped in a sterile condition. 1% Xylocaine used to anesthetize the right groin. Using a Cook needle, the right femoral artery was engaged with Seldinger technique, a 6-Salvadorean sheath in the right femoral artery. Using a 6-Salvadorean JL4 diagnostic catheter and a 6-Salvadorean JR4 diagnostic catheter, selective left and right coronary angiographies were performed. Using a 6-Salvadorean pigtail catheter, ventriculogram was done. Following that, a 6-Salvadorean VIEYRA guide catheter was used to cannulate the ostium of the RCA, which had an ostial stent. Using a ChoICE PT extra support wire, we were able to cross the lesion. It was then balloon angioplastied using a 2.5 x 15 mm [place] balloon. Following the dilatation, a thrombectomy and a shockwave device 3.5 x 12 mm shockwave balloon was used to angioplasty the entire proximal segment of the RCA and the ostium of the RCA, whether it was the in-stent restenosis. Following that, a 3.5 x 26 mm [place] stent was then deployed across the lesion at 18 atmospheres. It was then postdilated using a 4.0 x 15 mm noncompliant [place]hora balloon. Then, the catheter was withdrawn. An XB 3.5 guide catheter was then used to cannulate the left main. Using a second ChoICE PT extra support wire, we were able to cross the ramus branch. It was then, a thrombectomy was done using a shockwave balloon thrombectomy catheter. A 3.0 x 12 mm thrombectomy device was used and shockwave device was used. Following the treatment, a 3.0 x 26 mm [place] stent was then deployed across the lesion at 18 atmospheres. Then, a 3.0 x 12 mm stent was then deployed across the ostium of the ramus branch. Both vessels were then thrombectomized again using a 3.0 shockwave balloon. Following that, a 3.5 x 20 mm noncompliant [place] balloon was used to angioplasty the entire length of the stented portion from the mid ramus to the ostial ramus. It was inflated to 18 mm. There were no complications. The patient tolerated the procedure well. RESULTS: * Left main, patent. * Left anterior descending artery, previous site of stent placement was patent. * Ramus branch had in-stent restenosis of the ostium and about 90% narrowing of the ramus branch. FFR showed the patient to have an FFR of 0.58. Following stent placement and thrombectomy, less than 10% residual stenosis. * Circumflex artery, previous site of stent placement was patent with no flow restrictive lesion. * Right coronary artery has a long ostial stent. There is in-stent restenosis from the ostium to the mid portion, status post thrombectomy with balloon angioplasty and stent placement with a 3.5 x 26 mm [place] balloon stent, less than 10% residual stenosis. The patient is now completely revascularized. Left ventricular ejection fraction was less than 20% pre and post-intervention. We will continue to follow the patient. Thus, the patient underwent successful angioplasty with thrombectomy and shockwave treatment of the ostium RCA with stent placement and angioplasty with shockwave treatment and thrombectomy of the ramus ostium as well. Joel Pappas MD SA/ZINA TID: [id number] RECEIPT: [id number]
--- NOTE | 2024-05-10 17:42 | DVHDS ---
DATE OF DISCHARGE: 03/29/2024 DISCHARGE DIAGNOSES: * The patient with ischemic cardiomyopathy, status post Bi-V AICD, underwent revascularization of in-stent restenosis of the ostium of the RCA with stent placement and shockwave treatment. * Angioplasty with stent placement of the proximal segment of the ramus branch to the ostium with two sequential stents placement with shockwave treatment. The FFR pretreatment in both arteries was less than 0.58. The patient is now completely revascularized. We will continue to follow the patient. Stable at the time of discharge. DISPOSITION: Home. ACTIVITY: As instructed. DIET: Will be 2 gram sodium diet. The patient will be started on dual antiplatelet therapy. Joel Pappas MD SA/JEFFERY/LINDA TID: [id number] RECEIPT: [id number]
== END 2024-03-29 16:30 | disposition home or self-care (01) ==
LOC: CATH 08:47
PROVIDERS: ATTEND Internal Medicine Cardiovascular Disease
DX: I25.10 Atherosclerotic heart disease of native coronary artery without angina pectoris (principal); I25.5 Ischemic cardiomyopathy; I10 Essential (primary) hypertension; E78.5 Hyperlipidemia, unspecified; I21.9 Acute myocardial infarction, unspecified; I73.9 Peripheral vascular disease, unspecified; Z79.02 Long term (current) use of antithrombotics/antiplatelets; Z95.810 Presence of automatic (implantable) cardiac defibrillator
CPT/HCPCS: 36415; 80053; 85025; 85610; 85730; 99152; C1874; J2250

== ENCOUNTER 2024-03-30 20:00 | Inpatient (IN) | payer OTHER ==
[~2024-03-30] VITALS: Ht 172.7 cm; Wt 69.3 kg
--- NOTE | 2024-03-30 20:13 | ED.PDOC ---
HPI Comments 83 year old male came to ER via EMS due to chest pains. The patient with ischemic cardiomyopathy, multiple stents have been placed, Bi-V AICD, history of peripheral vascular disease, history of hypertension, ischemia, now with ongoing chest pain, shortness of breath, and episodes of nonsustained VT. Yesterday, under conscious sedation he underwent * Selective left and right coronary angiography.* Ventriculogram. 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 * Status post angioplasty with stent placement of the in-stent restenosis with a 3.5 x 26 mm Evan Spencer stent, * Angioplasty with thrombectomy of the ramus branch and stents x 2; 3.0 x 26 and a 3.0 x 12 mm stents were placed in the ramus branch. Earlier today, patient started having chest pains, upon arrival of paramedics, patient still in active chest pains, diaphoretic and is on SVTs. Patient was given Adenosine 6mg, 6mg and 12 mg but was unsuccessful in converting it, so patient was shocked 3x while en route to the ER, but patient still remained on SVT upon arrival Chief Complaint: Chest Pain Time Seen by MD: 20:12 Primary Care Provider: DEBORA Reviewed Notes: Bag Patcher Notes Allergies: Coded Allergies: Coconut (Cocos Nucifera) (Verified Allergy, Severe, COCONUT, 03/27/24) Penicillins (Verified Allergy, Severe, 03/27/24) Home Meds Active Scripts Cyanocobalamin (Gnp Vitamin B12) 500 Mcg Tab, 500 MCG PO DAILY for 30 Days, #30 TAB Prov:BEVERLEY CAZARES MD 12/04/23 Aspirin (Aspirin Low Dose) 81 Mg Tab, 81 MG PO DAILY for 30 Days, #30 TAB Prov:BEVERLEY CAZARES MD 12/04/23 Atorvastatin Calcium (ATORVASTATIN CALCIUM) 40 Mg Tab, 1 TAB PO DAILY for 30 Days, #30 TAB Prov:BEVERLEY CAZARES MD 12/04/23 Furosemide (Lasix) 40 Mg Tab, 40 MG PO QAM for 30 Days, #30 TAB Prov:BEVERLEY CAZARES MD 12/04/23 Clopidogrel Bisulfate (Plavix) 75 Mg Tab, 75 MG PO DAILY for 30 Days, #30 TAB Prov:BEVERLEY CAZARES MD 12/04/23 Carvedilol (Carvedilol) 6.25 Mg Tab, 1 TAB PO BID, #60 TAB 5 Refills Prov:BEVERLEY CAZARES MD 12/04/23 Albuterol Sulfate (VENTOLIN MDI) 90 Mcg Ih, 90 MCG IN Q20MP PRN for 30 Days, #1 INH Prov:CARY DURANT RESIDENT 09/04/23 Reported Medications Digoxin (Digoxin) 125 Mcg Tab, 1 TAB PO DAILY 12/01/23 Metformin Hydrochloride (Metformin Hcl Er) 500 Mg Tab, 2 TAB PO BIDWM 12/01/23 Pantoprazole Sodium (PANTOPRAZOLE SODIUM) 40 Mg Inj, 40 MG PO DAILY 12/06/19 Information Source: Patient, Emergency Med Personnel Mode of Arrival: EMS Severity: Severe Timing: Minutes Duration: Since onset Prehospital treatment: 12 Lead EKG, Accucheck, Recreation Counselor, Oxygen, Treatment Location: Substernal Radiation: No Radiation Quality: Pressure Onset: With Light Exertion Cardiac Risk Factors: Hyperlipidemia, HTN, Diabetes History of: Similar pain in past Associated Signs and Symptoms: SOB, Palpitations, Diaphoresis Past Medical History PAST MEDICAL HISTORY: CAD, CHF, COPD, DM, High Lipids, HTN, IA Surgical History: Pacemaker, PTCA Family History Family History: Reviewed,noncontributory to illness Social History Smoker: Non-Smoker, Quit Greater Than 1 Year Alcohol: Denies ETOH Use Drugs: Denies Drug Use Lives In: Home Constitutional: reports: weakness; denies: chills, diaphoresis, fatigue, fever, malaise, sweats, others EENTM: denies: blurred vision, double vision, ear bleeding, ear discharge, ear drainage, ear pain, ear ringing, eye pain, eye redness, hearing loss, mouth pain, mouth swelling, nasal discharge, nose bleeding, nose congestion, nose pain, photophobia, tearing, throat pain, throat swelling, voice changes, others Respiratory: reports: SOB at rest, shortness of breath; denies: cough, hemoptysis, orthopnea, SOB with excertion, stridor, wheezing, others Cardiovascular: reports: chest pain, dizzy spells, palpitations; denies: diaphoresis, Dyspnea on exertion, edema, irregular heart beat, left arm pain, lightheadedness, PND, syncope, others Gastrointestinal: denies: abdomen distended, abdominal pain, blood streaked bowels, constipated, diarrhea, dysphagia, difficulty swallowing, hematemesis, melena, nausea, poor appetite, poor fluid intake, rectal bleeding, rectal pain, vomiting, others Genitourinary: denies: burning, dysuria, flank pain, frequency, hematuria, incontinence, penile discharge, penile sore, pain, testicle pain, testicle swelling, urgency, others Neurological: denies: dizziness, fainting, headache, left sided numbness, left sided weakness, numbness, paresthesia, pre-existing deficit, right sided numbness, right sided weakness, seizure, speech problems, tingling, tremors, weakness, others Musculoskeletal: denies: back pain, gout, joint pain, joint swelling, muscle pain, muscle stiffness, neck pain, others Integumetry: denies: bruises, change in color, change in hair/nails, dryness, laceration, lesions, lumps, rash, wounds, others Allergic/Immunocompromised: denies: Difficulty Healing, Frequent Infections, Hives, Itching, others Hematologic/Lymphatic: denies: anemia, blood clots, easy bleeding, easy bruising, swollen glands, others Endocrine: denies: excessive hunger, excessive sweating, excessive thirst, excessive urination, flushing, intolerance to cold, intolerance to heat, unexplained weight gain, unexplained weight loss, others Psychiatric: denies: anxiety, bipolar disorder, depression, hopeless, panic disorder, schizophrenia, sleepless, suicidal, others Physical Exam General Appearance: No Apparent Distress, Normal HEENT: Normal ENT Inspection, Pharynx Normal, TMs Normal Neck: Full Range of Motion, Non-Tender, Normal, Normal Inspection Respiratory: Chest Non-Tender, Lungs Clear, No Accessory Muscle Use, No Respiratory Distress, Normal Breath Sounds Cardiovascular: No Edema, No JVD, No Murmur, No Gallop, Normal Peripheral Pulses, Regular Rate/Rhythm Breast Exam: Deferred Gastrointestinal: No Organomegaly, Non Tender, No Pulsatile Mass, Normal Bowel Sounds, Soft Genitalia: Deferred Pelvic: Deferred Rectal: Deferred Extremities: No calf tenderness, Normal capillary refill, Normal inspection, Normal range of motion, Non-tender, No pedal edema Musculoskeletal : Apperance: Normal Neurologic: Alert, currency counter II-XII nml as Tested, No Motor Deficits, Normal Affect, Normal Mood, No Sensory Deficits Cerebellar Function: Normal Reflexes: Normal Skin: Dry, Normal Color, Warm Lymphatic: No Adenopathy EKG EKG : Pulse Rate (adult): 160 ST: Ant Comments sinus tachycardia, wide QRS Was a procedure done? Was a procedure done?: Yes Sedation Sedation?: Yes Informed consent obtained: Yes Sedation start time: 20:18 Sedation end time: 20:48 Sedation total time: Patient still sedated at this time Central Line Recorder of insertion practice: Observer Occupation of lead process engineer: Attending Physician Indication: Hypotension, Inability to obtain IV, Suspected infection Room prepared for procedure: Yes Suede Brusher performed hand hygien: Yes Maximal sterile barrier precau: Mask/Eye shield, Sterile gown, Cap, Sterlie gloves, Large sterlie drape Skin Preparation: Providine iodine Skin preparation completely dr: Yes Insertion site: Right, Infraclavicular Central line catheter type: Tunneled- not dialysis Number of lumens: 3 Central line exchanged over a: Yes Antiseptic ointment applied to: Yes Post Assessment: Chest X-Ray Informed consent obtained: No Risks/benefits/alt described: No Intubation Indication: Respiratory Insufficiency, Airway Protection Prep: Preoxygenation Pretreated with: Sedation Medicated with: Other (etomidate, rocuronium) Intubation Approach: Orotracheal Intubation size: cm (7.5) Informed consent obtained: No Risks/benefits/alt described: No CP Differential Dx Differential Diagnosis: A-fib, Angina, Anxiety / Panic Attack, Electrolyte Disorder, Hyperventilation, Pacemaker Malfunction, PSVT, Sinus Tachycardia Differential Diagnosis: Angina, Chest Wall Pain, Costochondritis, Esophageal reflux/spasm, Gastritis, Myocardial Infarction X-Ray, Labs, Meds, VS Vital Signs Date Time Temp Pulse Resp B/P (MAP) Pulse Ox O2 Delivery O2 Flow Rate FiO2 03/30/24 23:00 76/40 03/30/24 22:58 146 03/30/24 22:48 100 03/30/24 22:32 151 22 93/52 (66) 92 80 03/30/24 21:54 157 20 99 Mechanical Ventilator+ 80 80 03/30/24 21:18 156 03/30/24 20:30 80/45 03/30/24 20:18 155 16 111/40 (63) 94 80 03/30/24 20:06 143 03/30/24 20:06 97.2 147 22 121/51 (74) 98 Lab Test 03/30/24 22:57 03/30/24 22:33 03/30/24 22:05 03/30/24 20:41 Range/Units Troponin I High Sensitivity Pending Prothrombin Time Pending Prothrombin Time INR Pending Activated Partial Thromboplast Time Pending Lactic Acid Level Pending Blood Gas Specimen Type Arterial Arterial Blood Gas Sample Site Right brachial Left brachial Blood Gas Patient Temperature 37.0 37.0 Arterial Blood Date Drawn 138 Arterial Blood pH 7.135 *L 7.045 *L 7.350-7.450 Arterial Blood Partial Pressure CO2 62.2 *H 77.8 *H 35.0-48.0 mmHg Arterial Blood Partial Pressure O2 86.3 100.9 83.0-108.0 mmHg Arterial Blood HCO3 20.5 L 20.8 L 21.0-28.0 mmol/L Arterial Blood Oxygen Saturation 93.1 L 94.2 94.0-98.0 % Arterial Blood Base Excess -9.3 L -10.8 L -2.0-3.0 mmol/L Arterial Blood Oxyhemoglobin 92.0 L 93.4 L 94.0-98.0 % Arterial Blood Carboxyhemoglobin 0.4 L 0.1 L 0.5-1.5 % Arterial Blood Methemoglobin 0.8 0.7 0.0-1.5 % Jd Test N/a N/a Blood Gas Total Hemoglobin 13.10 L 12.50 L 13.5-17.5 g/dL Blood Gas Set Respiration Rate 20.0 16.0 Blood Gas Modality Vent - ac Vent - ac Blood Gas Spontaneous Rate 20 16 FiO2 % 80.0 80.0 Blood Gas Tidal Volume 500.0 500.0 Blood Gas PEEP or CPAP 5.0 5.0 Blood Gas Critical Value Read Back Yes yes Blood Gas Notified Whom lavinia Barnard md, Dr., er md Blood Gas Notified Time [id number] Blood Gas Notified By Test 03/30/24 20:40 03/30/24 20:14 Range/Units White Blood Count 17.2 #H 4.4-10.8 10^3/uL Red Blood Count 4.34 L 4.5-5.90 10^6/uL Hemoglobin 12.6 L 13.5-17.5 g/dL Hematocrit 39.5 #L 41.0-53.0 % Mean Corpuscular Volume 90.9 # 80.0-100.0 fL Mean Corpuscular Hemoglobin 29.0 28.0-32.0 pg Mean Corpuscular Hemoglobin Concent 31.9 L 32.0-36.0 g/dL Red Cell Distribution Width 16.0 H 11.8-14.3 % Platelet Count 258 140-450 10^3/uL Mean Platelet Volume 8.2 6.9-10.8 fL Neutrophils (%) (Auto) 65.8 37.0-80.0 % Lymphocytes (%) (Auto) 25.0 10.0-50.0 % Monocytes (%) (Auto) 6.5 0.0-12.0 % Eosinophils (%) (Auto) 2.3 0.0-7.0 % Basophils (%) (Auto) 0.4 0.0-2.0 % Neutrophils # (Auto) 11.3 H 1.6-8.6 10 ^3/uL Lymphocytes # (Auto) 4.3 0.4-5.4 10 ^3/uL Monocytes # (Auto) 1.1 0-1.3 10 ^3/uL Eosinophils # (Auto) 0.4 0-0.8 10 ^3/uL Basophils # (Auto) 0.1 0-0.2 10 ^3/uL Nucleated Red Blood Cells 0.0 % Sodium Level 142 136-145 mmol/L Potassium Level 5.2 H 3.5-5.1 mmol/L Chloride Level 108 H 98-107 mmol/L Carbon Dioxide Level 22 20-31 mmol/L Anion Gap 12 5-15 Blood Urea Nitrogen 28 H 9-23 mg/dL Creatinine 1.27 0.700-1.30 mg/dL Glomerular Filtration Rate Calc 56 >90 mL/min BUN/Creatinine Ratio 22.0 H 10.0-20.0 Serum Glucose 503 #*H 74-106 mg/dL Lactic Acid Level 5.4 *H 0.4-2.0 mmol/L Calcium Level 9.2 8.7-10.4 mg/dL Magnesium Level 2.2 1.6-2.6 mg/dL Total Bilirubin 0.5 0.2-1.0 mg/dL Aspartate Amino Transferase (AST) 179 H 13-40 U/L Alanine Aminotransferase (ALT) 119 H 7-40 U/L Alkaline Phosphatase 151 H 46-116 U/L Troponin I High Sensitivity 1369 *H 1525 *H </=54 ng/L B-Type Natriuretic Peptide 1480.93 0-100 pg/mL Total Protein 5.9 5.7-8.2 g/dL Albumin 3.9 3.2-4.8 g/dL Current Medications Medications (Trade) Dose Ordered Sig/Norah Route Start Time Stop Time Status Last Admin Propofol 100 ml @ 2.727 mls/ hr Q24H IV 03/30/24 20:30 03/30/24 20:30 Sodium Chloride 1,000 ml @ 1,000 mls/hr Q1H ONCE IV 03/30/24 20:30 03/30/24 21:29 DC 03/30/24 20:46 Albuterol (Ventolin Medneb) 10 mg ONCE ONCE NEB 03/30/24 21:00 03/30/24 21:07 DC 03/30/24 21:09 Ipratropium [place] (Atrovent Medneb) 1 mg ONCE ONCE NEB 03/30/24 21:00 03/30/24 21:07 DC 03/30/24 21:10 Sodium Chloride (Saline Lock Ns) 10 ml Q8HR IV 03/30/24 22:00 03/30/24 22:00 Heparin Sodium (Porcine) 5,000 units Q12HR SC 03/30/24 22:00 03/30/24 22:34 Doxycycline Hyclate 250 ml @ 125 mls/hr Q12H IV 03/30/24 22:00 03/30/24 22:36 Digoxin (Lanoxin Injection) 125 mcg ONCE ONCE IV 03/30/24 22:45 03/30/24 22:46 DC 03/30/24 22:58 Ceftriaxone Sodium 50 ml @ 100 mls/hr ONCE ONCE IV 03/30/24 22:45 03/30/24 23:14 DC 03/30/24 23:01 Norepinephrine Bitartrate 250 ml @ 3.75 mls/hr Q24H IV 03/30/24 23:00 03/30/24 23:00 CHEST RADIOGRAPH Indication: SOB, intubated Technique: Single frontal view of the chest was obtained Comparison: XY CHEST XRAY 1 VIEW on DOS: 12/05/23, XY CHEST XRAY 1 VIEW on DOS: 12/04/23, XY CHEST XRAY 1 VIEW on DOS: 12/03/23 findings/ IMPRESSION: Endotracheal tube is projected 4.5 cm superior to the jese. Left- sided cardiac device with intact leads. Right-sided subclavian CVC with tip terminating in the SVC. Enteric tube projects below the GE junction without visualization of side port tip. Coarse bilateral diffuse interstitial opacities, right side greater than left which raises concern for possible interstitial lung disease versus interstitial pneumonia versus pulmonary edema. Time of 1ST Reevaluation: 20:16 Reevaluation 1ST: Unchanged Patient Education/Counseling: Diagnosis, Treatment Family Education/Counseling: No Family Present Sepsis Sepsis Reasesment Focused Exam Sepsis focused exam: focus exam completed (2199) Departure 1 Departure Time of Disposition: 22:30 Impression: Primary Impression: Acute respiratory failure Additional Impressions: COPD with acute exacerbation Acute coronary syndrome with high troponin Disposition: ADMITTED INPATIENT Admit to: ICU Condition: Critical Critical Care Note Critical Care Time?: Yes (45 min-critical care time only) Stability Stability form required: No Heart Score Heart Score: Heart Score Response (Comments) Value History Highly Suspicious 2 EKG Repolarization Disturb 1 Age >65 2 Risk Factors >3 or Hx ASHD 2 Troponin >3 x's Normal limit 2 Total 9 I personally scribed for BRE ELMORE MD ([facility]) on 03/30/24 at 20:13. Electronically submitted by Duncan Hager ([facility]). I personally scribed for BRE ELMORE MD ([facility]) on 03/30/24 at 20:23. Electronically submitted by Duncan Hager ([facility]). I personally scribed for BRE ELMORE MD ([facility]) on 03/30/24 at 20:26. Electronically submitted by Duncan Hager ([facility]). I personally scribed for BRE ELMORE MD ([facility]) on 03/30/24 at 20:40. El ectronically submitted by Duncan Hager ([facility]). I personally scribed for BRE ELMORE MD ([facility]) on 03/30/24 at 20:43. Electronically submitted by Duncan Hager ([facility]). I personally scribed for BRE ELMORE MD ([facility]) on 03/30/24 at 21:12. Electronically submitted by Duncan Hager ([facility]). I personally scribed for BRE ELMORE MD ([facility]) on 03/30/24 at 23:15. Electronically submitted by Duncan Hager ([facility]). BRE ELMORE MD Mar 30, 2024 20:13
[2024-03-30 20:18] VITALS: BP 111/40; PULSE 155; RESP 16; O2SAT 94
[2024-03-30] MEDS: PROPOFOL 100 ML IV SCH (20:30)
[2024-03-30] MEDS: SODIUM CHLORIDE 0.9% 1,000 ML IV ONE (20:46)
[2024-03-30 21:08] VITALS: BP 111/40; PULSE 155; RESP 16; O2SAT 94
[2024-03-30] MEDS: ALBUTEROL SULF 2.5 MG/0.5ML(0.5%) NEB SOLN NEB ONE (21:09)
[2024-03-30] MEDS: IPRATROPIUM BROM 0.5 MG/2.5ML INH SOL NEB ONE (21:10)
[2024-03-30 21:11] LABS: Basophils # (auto) 0.1 10 ^3/uL (0-0.2); Basophils % (auto) 0.4 % (0.0-2.0); Eosinophils # (auto) 0.4 10 ^3/uL (0-0.8); Eosinophils % (auto) 2.3 % (0.0-7.0); Hematocrit 39.5 % (41.0-53.0); Hemoglobin 12.6 g/dL (13.5-17.5); Lymphocytes # (auto) 4.3 10 ^3/uL (0.4-5.4); Mean Corpuscular Hgb Conc. 31.9 g/dL (32.0-36.0); Mean Corpuscular Volume 90.9 fL (80.0-100.0); Monocytes # (auto) 1.1 10 ^3/uL (0-1.3); Monocytes % (auto) 6.5 % (0.0-12.0); Neutrophils # (auto) 11.3 10 ^3/uL (1.6-8.6); Neutrophils % (auto) 65.8 % (37.0-80.0); Platelet Count (auto) 258 10^3/uL (140-450); Red Blood Cells 4.34 10^6/uL (4.5-5.90); White Blood Cell 17.2 10^3/uL (4.4-10.8)
[2024-03-30 21:15] LABS: Base Excess -10.8 mmol/L (-2.0-3.0)
[2024-03-30] MEDS ORDERED: DEXTROSE (50%) 50ML SYRG IV PRN (21:30)
[2024-03-30] MEDS ORDERED: ONDANSETRON HCL 4 MG/2 ML VIAL IV PRN (21:30)
[2024-03-30 21:31] LABS: Alanine Aminotransferase 119 U/L (7-40); Albumin 3.9 g/dL (3.2-4.8); Alkaline Phosphatase 151 U/L (46-116); Anion Gap 12 (5-15); Aspartate Aminotransferase 179 U/L (13-40); Bilirubin, Total 0.5 mg/dL (0.2-1.0); Blood Urea Nitrogen 28 mg/dL (9-23); Calcium 9.2 mg/dL (8.7-10.4); Carbon Dioxide 22 mmol/L (20-31); Chloride 108 mmol/L (98-107); Magnesium 2.2 mg/dL (1.6-2.6); Potassium 5.2 mmol/L (3.5-5.1); Sodium 142 mmol/L (136-145); Total Protein 5.9 g/dL (5.7-8.2)
[2024-03-30 21:35] LABS: Glucose 503 mg/dL (74-106); Lactic Acid w/Reflex 5.4 mmol/L (0.4-2.0)
[2024-03-30] MEDS ORDERED: VANCOMYCIN PER PHARMACY 0 MG IV SCH (21:45)
--- NOTE | 2024-03-30 21:50 | DVH ---
CHEST RADIOGRAPH Indication: SOB, intubated Technique: Single frontal view of the chest was obtained Comparison: XY CHEST XRAY 1 VIEW on DOS: 12/05/23, XY CHEST XRAY 1 VIEW on DOS: 12/04/23, XY CHEST XRAY 1 VIEW on DOS: 12/03/23 findings/ IMPRESSION: Endotracheal tube is projected 4.5 cm superior to the jese. Left-sided cardiac device w ith intact leads. Right-sided subclavian CVC with tip terminating in the SVC. Enteric tube projects b elow the GE junction without visualization of side port tip. Coarse bilateral diffuse interstitial op acities, right side greater than left which raises concern for possible interstitial lung disease gill karen interstitial pneumonia versus pulmonary edema.
[2024-03-30 21:54] VITALS: PULSE 157; RESP 20; O2SAT 99
[2024-03-30] MEDS: SODIUM CHLOR 0.9% PF (SALINE LOCK) 10ML VIAL/SYR IV SCH (22:00)
[2024-03-30] MEDS ORDERED: IBUPROFEN 100MG/5ML ORAL SUSP 100 MG/5 ML UD GT PRN (22:00)
[2024-03-30 22:20] LABS: Base Excess -9.3 mmol/L (-2.0-3.0)
[2024-03-30 22:32] VITALS: BP 93/52; PULSE 151; RESP 22; O2SAT 92
[2024-03-30] MEDS: HEPARIN SODIUM (PORCINE) 5000 UNITS/ML 1ML VIAL SC SCH (22:34)
[2024-03-30] MEDS: DOXYCYCLINE 100MG/250ML 250 ML IV SCH (22:36)
[2024-03-30] MEDS: DIGOXIN (250MCG/ML) 2 ML AMPULE IV ONE (22:58)
[2024-03-30] MEDS: NOREPINEPHRINE 8 MG/250ML KIT 250 ML IV SCH (23:00)
[2024-03-30] MEDS: cefTRIAXone 1GM/50ML D5W 50 ML IV ONE (23:01)
[2024-03-30 23:07] LABS: INR 1.03 (0.9-1.15); Partial Thromboplastin Time 25.9 SEC (24.5-34.5); Prothrombin Time 10.9 sec (9.3-11.8)
--- NOTE | 2024-03-30 23:07 | DVHHP2 ---
History of Present Illness Reason for Visit: Acute respiratory failure History of Present Illness The patient is a 83-year-old male with past medical history of Coronary artery disease, CHF, COPD, DM, hyperlipidemia, MS, and hypertension who presented to [facility] ED with complaint of chest pain. Patient's symptoms progressively get worse with shortness of breaths, hypotensive, episodes of nonsustained VT. Patient underwent selective left and right coronary angiography, ventriculogram, thrombectomy of the ostial RCA because of in stent restenosis; status post angiography with stent placement of the Stent restenosis with a 3.5 x 26 mm Evan [place] stent, Angioplasty with thrombectomy of the ramus branch and stents x 2; 3.0 x 26 and a 3.0 x 12 mm stents were placed in the ramus branch. Earlier today, patient started having chest pain, when paramedics arrived on the scene, patient was diaphoretic, SVTs, and was given Adenosine 6mg, 6mg and 12 mg but was unsuccessful in converting it, so patient was shocked 3x while en route to the ER, but patient still remained on SVT upon arrival, and subsequently intubated. Patient was seen and evaluated in the ED, laboratory data shows WBC 17.2, platelets 258, sodium 142, potassium 5.2, BUN 28, creatinine 1.27, glucose 503, lactic acid 5.4, AST 179, ALT 119, troponin 1525, BNP 1480.93. Chest x-ray revealing cause bilateral diffuse interstitial opacities, right side greater than left which raises concern for possible interstitial lung disease versus interstitial pneumonia versus pulmonary edema. Patient was started on Levophed, please see medication orders section in the computer. On my assessment, patient remains fully intubated, no diaphoresis, no vomiting, no fever. Patient was admitted for further evaluation and medical management. Past Medical History CAD, CHF, COPD, DM, High Lipids, HTN, MS Past Surgical History Pacemaker, PTCA, Thrombectomy Family History Reviewed, noncontributory to the management of this case. Past Social History Patient lives at home, quit smoking greater than 1 year, no alcohol or illicit drugs abuse on file. Review of Systems Constitutional: Yes: Weakness; No: Fever, Chills, Sweats, Malaise, Other Eyes: No: Pain, Vision change, Conjunctivae inflammation, Eyelid inflammation, Other, Redness ENT: No: Ear pain, Ear discharge, Nose pain, Nose discharge, Nose congestion, Mouth pain, Mouth swelling, Throat pain, Throat swelling, Other Respiratory: Shortness of breath, SOB with excertion, Other (SOB at rest); No: Cough, Dry, Wheezing, Hemoptysis, Pleuritic Pain, Sputum, Wheezing Cardiovascular: Chest Pain, Palpitations, Other (Dizzy spell); No: Orthopnea, Paroxysmal Noc. Dyspnea, Edema, Lt Headedness Gastrointestinal: No: Nausea, Vomiting, Abdominal Pain, Diarrhea, Constipation, Melena, Hematochezia, Other Genitourinary: No Dysuria, No Frequency, No Incontinence, No Hematuria, No Retention, No Other Musculoskeletal: No: other, neck pain, shoulder pain, arm pain, back pain, hand pain, leg pain, foot pain Skin: No: Rash, Lesions, Jaundice, Bruising, Other Neurological: No: Weakness, Numbness, Incoordination, Change in speech, Confusion, Seizures, Other Allergies: Coded Allergies: Coconut (Cocos Nucifera) (Verified Allergy, Severe, COCONUT, 03/27/24) Penicillins (Verified Allergy, Severe, 03/27/24) Medications Current Medications Medications Dose Ordered Sig/Norah Route Start Time Stop Time Status Last Admin Dose Admin Propofol 100 ml @ 2.727 mls/ hr Q24H IV 03/30/24 20:30 03/30/24 20:30 2.727 MLS/HR Albuterol 2.5 mg Q4HPRN PRN NEB 03/30/24 21:30 Ipratropium [place] 0.5 mg Q4HPRN PRN NEB 03/30/24 21:30 Digoxin 125 mcg DAILY IV 03/31/24 10:00 Pantoprazole Sodium 40 mg DAILY IV 03/31/24 10:00 Diagnostic Test (Pha) 1 strip IQ4HR 03/31/24 00:00 Insulin Human Regular IQ4HR SC 03/31/24 00:00 Dextrose 50 ml UD PRN IV 03/30/24 21:30 Sodium Chloride 10 ml Q8HR IV 03/30/24 22:00 03/30/24 22:00 10 ML Ondansetron HCl 4 mg Q4HP PRN IV 03/30/24 21:30 Vancomycin HCl 0 ml @ 0 mls/hr UD IV 03/30/24 21:45 UNV Heparin Sodium (Porcine) 5,000 units Q12HR SC 03/30/24 22:00 03/30/24 22:34 5,000 UNITS Doxycycline Hyclate 250 ml @ 125 mls/hr Q12H IV 03/30/24 22:00 03/30/24 22:36 125 MLS/HR Ibuprofen 400 mg Q4HP PRN GT 03/30/24 22:00 Vancomycin HCl 200 ml @ 200 mls/hr Q1H IV 03/30/24 22:30 03/31/24 00:29 Nitroglycerin 0.4 mg Q5MINP PRN SL 03/30/24 23:15 Morphine Sulfate 2 mg Q30M PRN IV 03/30/24 23:15 Exam Vital Signs Vital Signs Date Time Temp Pulse Resp B/P (MAP) Pulse Ox O2 Delivery O2 Flow Rate FiO2 03/30/24 22:58 146 03/30/24 21:54 20 99 Mechanical Ventilator+ 80 80 03/30/24 20:30 80/45 03/30/24 20:06 97.2 General Appearance: Other (Fully intubated) HEENT: Atraumatic, PERRLA, EOMI, Mucous membr. moist/pink Respiratory: Normal air movement, Other (Fully intubated) Cardiovascular: Normal S1, Normal S2, No murmurs, Other (Irregular rate and rhythm) Abdominal: Normal bowel sounds, Soft, No tenderness, No hepatospenomegaly, No masses Extremities: No clubbing, No cyanosis, No edema, Normal pulses, No tenderness/swelling Skin: No rashes, No breakdown, No significant lesion Neuro: Other (Generalized weakness) Psych/Mental Status: Mental status NL, Mood NL Labs/Xrays Labs Test 03/30/24 22:57 03/30/24 22:33 03/30/24 22:05 03/30/24 20:40 Range/Units Blood Gas Specimen Type Arterial Blood Gas Sample Site Right brachial Blood Gas Patient Temperature 37.0 Arterial Blood Date Drawn Arterial Blood pH 7.135 *L 7.350-7.450 Arterial Blood Partial Pressure CO2 62.2 *H 35.0-48.0 mmHg Arterial Blood Partial Pressure O2 86.3 83.0-108.0 mmHg Arterial Blood HCO3 20.5 L 21.0-28.0 mmol/L Arterial Blood Oxygen Saturation 93.1 L 94.0-98.0 % Arterial Blood Base Excess -9.3 L -2.0-3.0 mmol/L Arterial Blood Oxyhemoglobin 92.0 L 94.0-98.0 % Arterial Blood Carboxyhemoglobin 0.4 L 0.5-1.5 % Arterial Blood Methemoglobin 0.8 0.0-1.5 % Jd Test N/a Blood Gas Total Hemoglobin 13.10 L 13.5-17.5 g/dL Blood Gas Set Respiration Rate 20.0 Blood Gas Modality Vent - ac Blood Gas Spontaneous Rate 20 FiO2 % 80.0 Blood Gas Tidal Volume 500.0 Blood Gas PEEP or CPAP 5.0 Blood Gas Critical Value Read Back Yes Blood Gas Notified Whom lavinia Barnard md Blood Gas Notified Time [id number] Blood Gas Notified By White Blood Count 17.2 #H 4.4-10.8 10^3/uL Red Blood Count 4.34 L 4.5-5.90 10^6/uL Hemoglobin 12.6 L 13.5-17.5 g/dL Hematocrit 39.5 #L 41.0-53.0 % Mean Corpuscular Volume 90.9 # 80.0-100.0 fL Mean Corpuscular Hemoglobin 29.0 28.0-32.0 pg Mean Corpuscular Hemoglobin Concent 31.9 L 32.0-36.0 g/dL Red Cell Distribution Width 16.0 H 11.8-14.3 % Platelet Count 258 140-450 10^3/uL Mean Platelet Volume 8.2 6.9-10.8 fL Neutrophils (%) (Auto) 65.8 37.0-80.0 % Lymphocytes (%) (Auto) 25.0 10.0-50.0 % Monocytes (%) (Auto) 6.5 0.0-12.0 % Eosinophils (%) (Auto) 2.3 0.0-7.0 % Basophils (%) (Auto) 0.4 0.0-2.0 % Neutrophils # (Auto) 11.3 H 1.6-8.6 10 ^3/uL Lymphocytes # (Auto) 4.3 0.4-5.4 10 ^3/uL Monocytes # (Auto) 1.1 0-1.3 10 ^3/uL Eosinophils # (Auto) 0.4 0-0.8 10 ^3/uL Basophils # (Auto) 0.1 0-0.2 10 ^3/uL Nucleated Red Blood Cells 0.0 % Sodium Level 142 136-145 mmol/L Potassium Level 5.2 H 3.5-5.1 mmol/L Chloride Level 108 H 98-107 mmol/L Carbon Dioxide Level 22 20-31 mmol/L Anion Gap 12 5-15 Blood Urea Nitrogen 28 H 9-23 mg/dL Creatinine 1.27 0.700-1.30 mg/dL Glomerular Filtration Rate Calc 56 >90 mL/min BUN/Creatinine Ratio 22.0 H 10.0-20.0 Serum Glucose 503 #*H 74-106 mg/dL Calcium Level 9.2 8.7-10.4 mg/dL Magnesium Level 2.2 1.6-2.6 mg/dL Total Bilirubin 0.5 0.2-1.0 mg/dL Aspartate Amino Transferase (AST) 179 H 13-40 U/L Alanine Aminotransferase (ALT) 119 H 7-40 U/L Alkaline Phosphatase 151 H 46-116 U/L B-Type Natriuretic Peptide 1480.93 0-100 pg/mL Total Protein 5.9 5.7-8.2 g/dL Albumin 3.9 3.2-4.8 g/dL PATIENT: MINDI ULLOA ACCT: [id number] UNIT: [id number] : 1940 LOC: ER ROOM / BED: / AGE / SEX: 83 / M ADM STATUS: REG ER SERVICE 18 ORDERING PHYSICIAN: BRE ELMORE MD PROCEDURE(s): CXRP - CHEST PORTABLE REASON: SOB, intubated ORDER NUMBER(s): [id number], ACCESSION NUMBER(s): [id number] CHEST RADIOGRAPH Indication: SOB, intubated Technique: Single frontal view of the chest was obtained Comparison: XY CHEST XRAY 1 VIEW on DOS: 12/05/23, XY CHEST XRAY 1 VIEW on DOS: 12/04/23, XY CHEST XRAY 1 VIEW on DOS: 12/03/23 findings/ IMPRESSION: Endotracheal tube is projected 4.5 cm superior to the jese. Left-sided cardiac device with intact leads. Right-sided subclavian CVC with tip terminating in the SVC. Enteric tube projects below the GE junction without visualization of side port tip. Coarse bilateral diffuse interstitial opacities, right side greater than left which raises concern for possible interstitial lung disease versus interstitial pneumonia versus pulmonary edema. Assessment/Plan Assessment/Plan Acute respiratory failure Elevated liver enzymes Diabetes mellitus with hyperglycemia Sepsis, unspecified organism COPD with acute exacerbation Generalized weakness Acute coronary syndrome with high troponin Acute exacerbation of congestive heart failure Plan 1. Admit to intensive care unit 2. Breathing treatment 3. Pain control management 4. IV antibiotic management 5. Management of fluids and electrolytes 6. Consultation for cardiology/pulmonology 7. Diagnostic test chest x-ray 8. DVT prophylaxis-on heparin drip 9. Repeat labs CBC, CMP in a.m. 10. Home medication reviewed and reconciled 11. Continue with current medical management 12. Treatment plan discussed with patient and RN. Patient is fully intubated Plan discussed with: Patient, Other (RN) My Orders Orders - ADALBERTO GORDON DNP Procedure Category Date Status Time Albuterol Medneb PHA 03/30/24 In Process (Ventolin Medneb) 21:30 Ipratropium Medneb PHA 03/30/24 In Process (Atrovent Medneb) 21:30 Digoxin Injection PHA 03/31/24 In Process (Lanoxin Injection) 10:00 Pantoprazole PHA 03/31/24 In Process (Protonix) 10:00 Glucose Blood PHA 03/31/24 In Process (Accu-Chek Comfort 00:00 Insulin R (Human) PHA 03/31/24 In Process (Insulin R) 00:00 Dextrose 50% Syringe PHA 03/30/24 In Process 21:30 Allergies GERMANIA 03/30/24 In Process 21:25 Code Status CODE 03/30/24 Transmitted 21:25 Sodium Chloride Lock PHA 03/30/24 In Process (Saline Lock Ns) 22:00 Oxygen Per Hour RT 03/30/24 Transmitted 21:25 Ondansetron Hcl PHA 03/30/24 In Process (Zofran) 21:30 Fall Risk Precautions [place]ER[place] 03/30/[address] 21:25 Complete Blood Count LAB 03/31/24 Verified 04:00 Comprehensive LAB 03/31/24 Verified Metabolic Panel 04:00 Npo (Nothing By DIET 03/31/24 Transmitted Mouth) Diet Breakfast Condition: Serious GERMANIA 03/30/24 In Process 21:25 Sequential GERMANIA 03/30/24 In Process Compression Device Vancomycin Per PHA 03/30/24 Pending Pharmacy 21:45 Heparin Sodium PHA 03/30/24 In Process (Porcine) 22:00 *Consult CONS 03/30/24 Transmitted / 21:57 * Cardiology Consult CONS 03/30/24 Transmitted 21:57 Doxycycline PHA 03/30/24 In Process 100mg/250ml 22:00 Ibuprofen 100mg/5 Ml PHA 03/30/24 In Process Oral Susp (Motrin 1 22:00 Vancomycin 1gm/200ml PHA 03/30/24 In Process Premix 22:30 Troponin-I Hs LAB 03/31/24 Verified 04:00 Troponin-I Hs LAB 03/31/24 Verified 10:00 PTPTT LAB 03/30/24 In Process 22:30 Nitroglycerin PHA 03/30/24 In Process Sublingual (Ntrostat 23:15 Morphine Sulfate PHA 03/30/24 In Process Injection 23:15 Notify Of Changes [facility] 03/30/24 In Process From Base 23:03 Aeronautical Products Sales Engineer For [facility] 03/30/24 In Process 24 Hours 23:03 Emergency Dysrhythmia [facility] 03/30/24 In Process Protocol 23:03 Rhythm Strips Once [facility] 03/30/24 In Process Every Shift 23:03 Oxygen By Nasal RT 03/30/24 Transmitted Cannula 23:03 Admit ADMIT 03/30/24 Transmitted 23:05 Problem List: (1) Acute respiratory failure (2) Diabetes mellitus with hyperglycemia (3) Acute exacerbation of chronic heart failure (4) Sepsis, unspecified organism (5) Elevated liver enzymes (6) Acute coronary syndrome with high troponin (7) COPD with acute exacerbation (8) Generalized weakness Date of Service: Mar 30, 2024 Billing Provider: ADALBERTO GORDON DNP Common Visit Codes: [id number] INP/OBS CARE (HIGH) ADALBERTO GORDON DNP Mar 30, 2024 23:07
[2024-03-30] MEDS ORDERED: NITROGLYCERIN 0.4 MG SL TAB SL PRN (23:15)
[2024-03-30] MEDS ORDERED: MORPHINE SULFATE INJ 2 MG/ml SYRG IV PRN (23:15)
[2024-03-30] MEDS: AZITHROMYCIN 500MG/ 250ML 250 ML IV ONE (23:29)
[2024-03-31] VITALS (52 sets, daily range): BP systolic 49–136; BP diastolic 16–66; PULSE 98–149; RESP 15–29; TEMP 96.7–99.5; O2SAT 95–100
[2024-03-31] MEDS: ACCU-CHEK COMFORT CURVE STRIP VI SCH (00:10)
[2024-03-31] MEDS: InsuLIN REG 1unit/0.01ml Soln (100units/ml) SC SCH (00:20)
[2024-03-31] MEDS: FUROSEMIDE 20 MG/2 ML VIAL IV ONE (00:22)
[2024-03-31] MEDS: VANCOMYCIN 1GM/200ML PREMIX IV SCH (00:54)
[2024-03-31 04:20] LABS: Basophils # (auto) 0 10 ^3/uL (0-0.2); Basophils % (auto) 0.1 % (0.0-2.0); Eosinophils # (auto) 0 10 ^3/uL (0-0.8); Eosinophils % (auto) 0.1 % (0.0-7.0); Hematocrit 36.4 % (41.0-53.0); Hemoglobin 11.5 g/dL (13.5-17.5); Lymphocytes # (auto) 0.7 10 ^3/uL (0.4-5.4); Lymphocytes % (auto) 4.1 % (10.0-50.0); Mean Corpuscular Hemoglobin 28.8 pg (28.0-32.0); Mean Corpuscular Hgb Conc. 31.7 g/dL (32.0-36.0); Monocytes # (auto) 1.6 10 ^3/uL (0-1.3); Monocytes % (auto) 9.9 % (0.0-12.0); Neutrophils # (auto) 14.2 10 ^3/uL (1.6-8.6); Neutrophils % (auto) 85.8 % (37.0-80.0); Nucleated Red Blood Cells % 0.1 %; Platelet Count (auto) 265 10^3/uL (140-450); White Blood Cell 16.6 10^3/uL (4.4-10.8)
[2024-03-31 04:34] LABS: Alanine Aminotransferase 244 U/L (7-40); Albumin 3.6 g/dL (3.2-4.8); Alkaline Phosphatase 158 U/L (46-116); Anion Gap 10 (5-15); Aspartate Aminotransferase 262 U/L (13-40); BUN/Creatinine Ratio 17.2 (10.0-20.0); Blood Urea Nitrogen 33 mg/dL (9-23); Calcium 8.5 mg/dL (8.7-10.4); Carbon Dioxide 19 mmol/L (20-31); Chloride 107 mmol/L (98-107)
[2024-03-31 04:35] LABS: Bilirubin, Total 0.3 mg/dL (0.2-1.0)
[2024-03-31 04:36] LABS: Sodium 136 mmol/L (136-145)
[2024-03-31 04:42] LABS: Glucose 605 mg/dL (74-106); Potassium 6.4 mmol/L (3.5-5.1)
[2024-03-31] MEDS ORDERED: CALCIUM CHL 100MG/ML 1,000 MG in D5W 5% 100 ML IV ONE (05:00)
[2024-03-31] MEDS: SODIUM BICARB 8.4% 50Meq/50ml SYR INJ IV ONE (05:02)
[2024-03-31] MEDS: FUROSEMIDE 40 MG/4 ML VIAL IV ONE (05:11)
[2024-03-31] MEDS: InsuLIN REG 1unit/0.01ml Soln (100units/ml) IV ONE (05:12)
[2024-03-31] MEDS: HEPARIN SODIUM (PORCINE) 5000 UNITS/ML 1ML VIAL IV ONE (05:15)
[2024-03-31] MEDS: CALCIUM GLUC 1,000mg/50ml-NS 50 ML IV ONE (05:20)
[2024-03-31] MEDS: HEPARIN DRIP/D5W 100UNITS/ML 250 ML IV SCH ×2 (05:24→13:04)
[2024-03-31 06:37] LABS: Base Excess -8.5 mmol/L (-2.0-3.0)
--- NOTE | 2024-03-31 06:46 | ECG ---
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
--- NOTE | 2024-03-31 06:46 | ECG ---
[facility] Test Date: 2024-03-30 Test Time: 23:32:45 Pat Name: MINDI ULLOA Department: ED Room: 0266 Gender: M Business Analyst: TEOFILO : 1940 Requested By: BRE ELMORE Order Number: [id number] Reading MD: Doug Guillaume Measurements Intervals [place] Rate: 149 P: 122 [place]: 146 QRS: 13 QRSD: 168 T: 256 QT: 383 QTc: 603 Interpretive Statements Extreme tachycardia with wide complex, no further rhythm analysis attempted Baseline wander in lead(s) I,III,aVR,aVL,aVF,V1,V2,V3,V4,V5,V6 Electronically Signed On 04-03-2024 8:19:46 PST by Doug Guillaume Please click the below link to view image of tracing.
[2024-03-31 09:30] LABS: Base Excess -6.9 mmol/L (-2.0-3.0)
[2024-03-31] MEDS: PANTOPRAZOLE 40 MG/10 ML VIAL INJ IV SCH (09:35)
[2024-03-31 10:13] LABS: Basophils # (auto) 0 10 ^3/uL (0-0.2); Basophils % (auto) 0.2 % (0.0-2.0); Eosinophils # (auto) 0 10 ^3/uL (0-0.8); Eosinophils % (auto) 0.1 % (0.0-7.0); Hematocrit 34.7 % (41.0-53.0); Hemoglobin 11.4 g/dL (13.5-17.5); Lymphocytes # (auto) 1.3 10 ^3/uL (0.4-5.4); Lymphocytes % (auto) 8.3 % (10.0-50.0); Mean Corpuscular Hemoglobin 28.9 pg (28.0-32.0); Mean Corpuscular Hgb Conc. 32.9 g/dL (32.0-36.0); Mean Corpuscular Volume 87.7 fL (80.0-100.0); Monocytes # (auto) 1.6 10 ^3/uL (0-1.3); Monocytes % (auto) 9.9 % (0.0-12.0); Neutrophils # (auto) 13.2 10 ^3/uL (1.6-8.6); Neutrophils % (auto) 81.5 % (37.0-80.0); Nucleated Red Blood Cells % 0.2 %; Platelet Count (auto) 237 10^3/uL (140-450); Red Blood Cells 3.96 10^6/uL (4.5-5.90); Red Cell Distribution Width 15.7 % (11.8-14.3); White Blood Cell 16.2 10^3/uL (4.4-10.8)
[2024-03-31] MEDS: DOBUTamine 1000MCG/ML 250 ML IV SCH (10:18)
[2024-03-31 10:38] LABS: Alanine Aminotransferase 239 U/L (7-40); Albumin 3.6 g/dL (3.2-4.8); Alkaline Phosphatase 148 U/L (46-116); Anion Gap 11 (5-15); Aspartate Aminotransferase 266 U/L (13-40); BUN/Creatinine Ratio 17.5 (10.0-20.0); Bilirubin, Total 0.4 mg/dL (0.2-1.0); Blood Urea Nitrogen 38 mg/dL (9-23); Carbon Dioxide 21 mmol/L (20-31); Chloride 108 mmol/L (98-107); Magnesium 2.1 mg/dL (1.6-2.6); Potassium 5.2 mmol/L (3.5-5.1); Sodium 140 mmol/L (136-145)
[2024-03-31] MEDS: DIGOXIN (250MCG/ML) 2 ML AMPULE IV SCH (10:45)
[2024-03-31] MEDS: FUROSEMIDE 20 MG/2 ML VIAL IV SCH (10:46)
--- NOTE | 2024-03-31 11:02 | DVHPN2 ---
Subjective Seen and examined at bedside, patient is intubated on 50% Fio2, PEEP 7. Patient is very well known to me from clinic. Low EF on home oxygen 3L NC. Unable to find patients son. Start Dobutamine and Lasix. On Heparin drip also. Changes from previous H/P or p: No Changes System Changes Unable to obtain, intubated Objective Vitals Vital Signs Date Time Temp Pulse Resp B/P (MAP) Pulse Ox O2 Delivery O2 Flow Rate FiO2 03/31/24 10:49 109/53 03/31/24 10:45 140 03/31/24 08:45 24 97 03/31/24 08:24 50 03/31/24 07:30 98.5 98.5 03/31/24 07:20 Mechanical Ventilator+ Intake/Output Intake and Output 03/31/24 06:59 Intake Total 1868.284 ml Balance 1868.284 ml Intake IV Total 1868.284 ml Exam Gen: in bed intubated Cvs: Tachycardic Resp: Creps, BLAE Abd: Soft Guest Services Ambassador: Sedated Medications Current Medications Medications Dose Ordered Sig/Norah Route Start Time Stop Time Status Last Admin Dose Admin Propofol 100 ml @ 2.727 mls/ hr Q24H IV 03/30/24 20:30 03/31/24 08:45 24.543 MLS/HR Albuterol 2.5 mg Q4HPRN PRN NEB 03/30/24 21:30 Ipratropium [place] 0.5 mg Q4HPRN PRN NEB 03/30/24 21:30 Digoxin 125 mcg DAILY IV 03/31/24 10:00 03/31/24 10:45 125 MCG Pantoprazole Sodium 40 mg DAILY IV 03/31/24 10:00 03/31/24 09:35 40 MG Diagnostic Test (Pha) 1 strip IQ4HR 03/31/24 00:00 03/31/24 08:08 1 STRIP Insulin Human Regular IQ4HR SC 03/31/24 00:00 03/31/24 08:20 15 UNITS Dextrose 50 ml UD PRN IV 03/30/24 21:30 Sodium Chloride 10 ml Q8HR IV 03/30/24 22:00 03/31/24 05:12 10 ML Ondansetron HCl 4 mg Q4HP PRN IV 03/30/24 21:30 Doxycycline Hyclate 250 ml @ 125 mls/hr Q12H IV 03/30/24 22:00 03/31/24 09:35 125 MLS/HR Ibuprofen 400 mg Q4HP PRN GT 03/30/24 22:00 Nitroglycerin 0.4 mg Q5MINP PRN SL 03/30/24 23:15 Morphine Sulfate 2 mg Q30M PRN IV 03/30/24 23:15 Norepinephrine Bitartrate 250 ml @ 3.75 mls/hr Q24H IV 03/30/24 23:00 03/31/24 10:35 15 MLS/HR Furosemide 20 mg DAILY IV 03/31/24 10:00 03/31/24 10:46 20 MG Heparin Sodium/ Dextrose 250 ml @ 10 mls/hr Q24H IV 03/31/24 05:00 03/31/24 05:24 10 MLS/HR Dobutamine HCl/ Dextrose 250 ml @ 27.27 mls/ hr Q9H11M IV 03/31/24 09:45 03/31/24 10:18 27.27 MLS/HR Laboratory Results Laboratory Tests 03/31/24 09:59 Chemistry Test 03/30/24 20:40 03/31/24 04:02 03/31/24 09:59 Albumin 3.9 g/dL (3.2-4.8) 3.6 g/dL (3.2-4.8) Pending Calcium Level 9.2 mg/dL (8.7-10.4) 8.5 mg/dL (8.7-10.4) L Pending Magnesium Level 2.2 mg/dL (1.6-2.6) Pending Total Protein 5.9 g/dL (5.7-8.2) 6.0 g/dL (5.7-8.2) Pending Coagulation Test 03/30/24 22:33 Prothrombin Time 10.9 sec (9.3-11.8) Prothrombin Time INR 1.03 (0.9-1.15) Activated Partial Thromboplast Time 25.9 SEC (24.5-34.5) Cardiac Markers Test 03/30/24 20:40 03/31/24 04:02 B-Type Natriuretic Peptide 1480.93 pg/mL (0-100) 2904.60 pg/mL (0-100) LFT Test 03/30/24 20:40 03/31/24 04:02 03/31/24 09:59 Alanine Aminotransferase (ALT) 119 U/L (7-40) H 244 U/L (7-40) H Pending Alkaline Phosphatase 151 U/L (46-116) H 158 U/L (46-116) H Pending Aspartate Amino Transferase (AST) 179 U/L (13-40) H 262 U/L (13-40) H Pending Total Bilirubin 0.5 mg/dL (0.2-1.0) 0.3 mg/dL (0.2-1.0) Pending Blood Gas Results Test 03/30/24 20:41 03/30/24 22:05 03/31/24 06:33 03/31/24 09:15 Arterial Blood pH 7.045 (7.350-7.450) 7.135 (7.350-7.450) 7.178 (7.350-7.450) 7.258 (7.350-7.450) FiO2 % 80.0 80.0 70.0 50.0 Assessment/Plan Assessment/Plan # Acute on Chronic Resp Failure - On Mechanical ventilation # Cardiogenic Shock - On Dobutamine and Levophed # LOURDES due to ATN - Monitor renal function, Nephro cx # Possible Sepsis? - On Doxy, DC Vanco due to renal impairment # Pulm Edema Critical care time 90 mins Plan discussed with: Other (rn) My Orders Orders - BEVERLEY CAZARES MD Procedure Category Date Status Time Comprehensive LAB 03/31/24 In Process Metabolic Panel 08:37 Magnesium LAB 03/31/24 In Process 08:37 * Reporting Specialist CONS 03/31/24 Transmitted Consult Dobutamine 1000mcg/Ml PHA 03/31/24 In Process (Dobutrex) 09:45 Date of Service: Mar 31, 2024 Billing Provider: BEVERLEY CAZARES MD Common Visit Codes: [id number] CARE 30-74 MIN, [id number] CARE-EACH +30MIN BEVERLEY CAZARES MD Mar 31, 2024 11:02
[2024-03-31] MEDS: METOPROLOL TARTRATE 1MG/1ML-5ML VIAL IV ONE (11:07)
[2024-03-31 11:15] LABS: Glucose 396 mg/dL (74-106)
[2024-03-31 11:57] LABS: INR 1.1 (0.9-1.15); Prothrombin Time 11.6 sec (9.3-11.8)
[2024-03-31 12:02] LABS: Partial Thromboplastin Time 128.9 SEC (24.5-34.5)
--- NOTE | 2024-03-31 12:04 | ECG ---
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
[2024-03-31] MEDS: ROCURONIUM 10MG/ML 10ML VIAL IV ONE (13:26)
[2024-03-31] MEDS: ETOMIDATE (2MG/ML) 20ML VIAL IV ONE (13:26)
[2024-03-31] MEDS: PROPOFOL 100 ML IV ONE (13:27)
[2024-03-31] MEDS: IPRATROPIUM BROM 0.5 MG/2.5ML INH SOL ONE (13:27)
[2024-03-31] MEDS: ALBUTEROL SULF 2.5 MG/0.5ML(0.5%) NEB SOLN ONE (13:27)
[2024-03-31] MEDS: NOREPINEPHRINE 8 MG/250ML KIT 250 ML IV ONE (13:28)
[2024-03-31 19:53] LABS: INR 1.04 (0.9-1.15); Partial Thromboplastin Time 47.5 SEC (24.5-34.5)
--- NOTE | 2024-03-31 21:50 | DVHINCON2 ---
Date of service: Mar 31, 2024 Referring Physician Kaz Sebastian NP Reason for Consultation Acute hypoxic/hypercarbic respiratory failure requiring mechanical ventilator, pulmonary edema. History of Present Illness An 83-year-old man with past medical history of coronary artery disease, CHF, COPD, DM, hyperlipidemia, SD, and hypertension who presented to ED on 03/30/24 with c/o chest pain. Symptoms progressively got worse with shortness of breath, hypotension, episodes of nonsustained VT. EMS were called d/t chest pain and noted SVT - failed to convert with Adenosine 6mg, 6mg and was shocked 3x while en route to the ER, but pt still remained in SVT. Upon arrival, he was in tubated. Labs showed WBC 17.2, platelets 258, sodium 142, potassium 5.2, BUN 28, creatinine 1.27, glucose 503, lactic acid 5.4, AST 179, ALT 119, troponin 1525, BNP 1480.93. Chest x-ray revealed bilateral diffuse interstitial opacities, right greater than left, concerning for possible interstitial lung disease versus interstitial pneumonia versus pulmonary edema. (Note, pt is s/p cardiac surgery - selective left and right coronary angiography, ventriculogram, thrombectomy of the ostial RCA because of in stent restenosis; status post angiography with stent placement of the stent restenosis with a 3.5 x 26 mm Evan Dewey stent, angioplasty with thrombectomy of the ramus branch and stents x 2; 3.0 x 26 and a 3.0 x 12 mm stents placed in the ramus branch.) He was thus admitted for further care and pulmonary consultation is requested for evaluation and management d/t these findings. Review of Systems: 14-point review of systems negative unless otherwise noted above. Past Medical History: Coronary artery disease, CHF, COPD, DM, hyperlipidemia, SD, hypertension. Past Surgical History: Pacemaker, PTCA, Thrombectomy Medications: Reviewed. Allergies: No known drug allergies. Family History: Mother w/ Alzheimer's, father w/ cancer. Social History: Ex-smoker. Quit smoking greater than 1 year, No alcohol or illicit drug use. Family History: Alzheimer's disease G8 MOTHER FH: cancer G8 FATHER Allergies: Coded Allergies: Coconut (Cocos Nucifera) (Verified Allergy, Severe, COCONUT, 03/27/24) Penicillins (Verified Allergy, Severe, 03/27/24) Home Meds Active Scripts Cyanocobalamin (Gnp Vitamin B12) 500 Mcg Tab, 500 MCG PO DAILY for 30 Days, #30 TAB Prov:BEVERLEY CAZARES MD 12/04/23 Aspirin (Aspirin Low Dose) 81 Mg Tab, 81 MG PO DAILY for 30 Days, #30 TAB Prov:BEVERLEY CAZARES MD 12/04/23 Atorvastatin Calcium (ATORVASTATIN CALCIUM) 40 Mg Tab, 1 TAB PO DAILY for 30 Days, #30 TAB Prov:BEVERLEY CAZARES MD 12/04/23 Furosemide (Lasix) 40 Mg Tab, 40 MG PO QAM for 30 Days, #30 TAB Prov:BEVERLEY CAZARES MD 12/04/23 Clopidogrel Bisulfate (Plavix) 75 Mg Tab, 75 MG PO DAILY for 30 Days, #30 TAB Prov:BEVERLEY CAZARES MD 12/04/23 Carvedilol (Carvedilol) 6.25 Mg Tab, 1 TAB PO BID, #60 TAB 5 Refills Prov:BEVERLEY CAZARES MD 12/04/23 Albuterol Sulfate (VENTOLIN MDI) 90 Mcg Ih, 90 MCG IN Q20MP PRN for 30 Days, #1 INH Prov:LALYCARY DOMINGUEZ RESIDENT 09/04/23 Reported Medications Digoxin (Digoxin) 125 Mcg Tab, 1 TAB PO DAILY 12/01/23 Metformin Hydrochloride (Metformin Hcl Er) 500 Mg Tab, 2 TAB PO BIDWM 12/01/23 Pantoprazole Sodium (PANTOPRAZOLE SODIUM) 40 Mg Inj, 40 MG PO DAILY 12/06/19 Current Medications Current Medications Medications (Trade) Dose Ordered Sig/Norah Route PRN Reason Start Time Stop Time Status Last Admin Heparin Sodium/ Dextrose 250 ml @ 7 mls/hr Q24H IV 03/31/24 13:00 03/31/24 20:26 DC 03/31/24 13:04 Heparin Sodium/ Dextrose 250 ml @ 9 mls/hr Q24H IV 03/31/24 20:30 Amiodarone HCl 250 ml @ 33.333 mls/ hr Q7H30M IV 03/31/24 21:45 04/01/24 03:44 Amiodarone HCl 250 ml @ 16.667 mls/ hr Q15H IV 04/01/24 03:45 Vital Signs Vital Signs Date Time Temp Pulse Resp B/P (MAP) Pulse Ox O2 Delivery O2 Flow Rate FiO2 03/31/24 20:19 131 26 105/49 (67) 98 35 03/31/24 18:45 98.8 209.8 03/31/24 18:14 Mechanical Ventilator+ Physical Exam Gen.: Patient lying in bed in medical ICU. Sedated, intubated on mechanical ventilator. Head: Normocephalic, atraumatic. Eyes: PERRLA. Ears: Normal external anatomy. Throat: Endotracheal tube and orogastric tube in place. Neck: Supple, trachea midline. Chest: Transmitted breath sounds bilaterally. Decreased air entry bilaterally. No wheezing. Bibasilar crackles. Cardiovascular: Positive S1, positive S2. Regular rate and rhythm. Abdomen: Positive bowel sounds in all 4 quadrants. Soft, nontender, nondiste nded. : Wadd[place] in place. Normal external genitalia. Rectal: Deferred. Skin: Warm, dry. Intact. Extremities: 2+ radial pulses bilaterally. No lower extremity edema. Neuro: Sedated. Labs/Diagnostic Data Labs Test 03/31/24 21:45 03/31/24 20:00 03/31/24 19:21 03/31/24 09:59 Range/Units POC Glucose 158 H 70-106 mg/dl Prothrombin Time 11.0 9.3-11.8 sec Prothrombin Time INR 1.04 0.9-1.15 Activated Partial Thromboplast Time 47.5 H 24.5-34.5 SEC White Blood Count 16.2 H 4.4-10.8 10^3/uL Red Blood Count 3.96 L 4.5-5.90 10^6/uL Hemoglobin 11.4 L 13.5-17.5 g/dL Hematocrit 34.7 L 41.0-53.0 % Mean Corpuscular Volume 87.7 80.0-100.0 fL Mean Corpuscular Hemoglobin 28.9 28.0-32.0 pg Mean Corpuscular Hemoglobin Concent 32.9 32.0-36.0 g/dL Red Cell Distribution Width 15.7 H 11.8-14.3 % Platelet Count 237 140-450 10^3/uL Mean Platelet Volume 8.0 6.9-10.8 fL Neutrophils (%) (Auto) 81.5 H 37.0-80.0 % Lymphocytes (%) (Auto) 8.3 L 10.0-50.0 % Monocytes (%) (Auto) 9.9 0.0-12.0 % Eosinophils (%) (Auto) 0.1 0.0-7.0 % Basophils (%) (Auto) 0.2 0.0-2.0 % Neutrophils # (Auto) 13.2 H 1.6-8.6 10 ^3/uL Lymphocytes # (Auto) 1.3 0.4-5.4 10 ^3/uL Monocytes # (Auto) 1.6 H 0-1.3 10 ^3/uL Eosinophils # (Auto) 0 0-0.8 10 ^3/uL Basophils # (Auto) 0 0-0.2 10 ^3/uL Nucleated Red Blood Cells 0.2 % Sodium Level 140 136-145 mmol/L Chloride Level 108 H 98-107 mmol/L Carbon Dioxide Level 21 20-31 mmol/L Anion Gap 11 5-15 Blood Urea Nitrogen 38 H 9-23 mg/dL Creatinine 2.17 H 0.700-1.30 mg/dL Glomerular Filtration Rate Calc 29 >90 mL/min BUN/Creatinine Ratio 17.5 10.0-20.0 Serum Glucose 396 #H 74-106 mg/dL Calcium Level 9.0 8.7-10.4 mg/dL Magnesium Level 2.1 1.6-2.6 mg/dL Total Bilirubin 0.4 0.2-1.0 mg/dL Aspartate Amino Transferase (AST) 266 H 13-40 U/L Alanine Aminotransferase (ALT) 239 H 7-40 U/L Alkaline Phosphatase 148 H 46-116 U/L Troponin I High Sensitivity > 02549 *H </=54 ng/L Total Protein 6.0 5.7-8.2 g/dL Albumin 3.6 3.2-4.8 g/dL Test 03/31/24 09:15 03/31/24 06:33 03/31/24 04:02 03/30/24 22:33 Range/Units Blood Gas Specimen Type Arterial Blood Gas Sample Site Right radial Blood Gas Patient Temperature 37.0 Arterial Blood Date Drawn [id number] Arterial Blood pH 7.258 L 7.350-7.450 Arterial Blood Partial Pressure CO2 45.8 35.0-48.0 mmHg Arterial Blood Partial Pressure O2 93.3 83.0-108.0 mmHg Arterial Blood HCO3 20.0 L 21.0-28.0 mmol/L Arterial Blood Oxygen Saturation 96.6 94.0-98.0 % Arterial Blood Base Excess -6.9 L -2.0-3.0 mmol/L Arterial Blood Oxyhemoglobin 95.8 94.0-98.0 % Arterial Blood Carboxyhemoglobin 0.1 L 0.5-1.5 % Arterial Blood Methemoglobin 0.7 0.0-1.5 % Jd Test Modified Blood Gas Total Hemoglobin 12.30 L 13.5-17.5 g/dL Blood Gas Set Respiration Rate 24.0 Blood Gas Modality Vent - ac FiO2 % 50.0 Blood Gas Tidal Volume 500.0 Blood Gas PEEP or CPAP 7.0 Blood Gas Critical Value Read Back Yes Blood Gas Notified Whom Blood Gas Notified Time [id number] Blood Gas Notified By Email Marketing Executive garfield B-Type Natriuretic Peptide 2904.60 0-100 pg/mL Lactic Acid Level 2.8 *H 0.4-2.0 mmol/L Test 03/30/24 22:05 Range/Units Blood Gas Spontaneous Rate 20 Microbiology Date/Time Source Procedure Growth Status 03/30/24 20:40 Blood Blood Culture - Preliminary NO GROWTH AFTER 24 HOURS OF INCUBATION. Resulted 03/30/24 20:35 Sputum Gram Stain - Final Resulted 03/30/24 20:35 Sputum Respiratory Culture - Preliminary Resulted Assessment Impression: Acute hypoxic respiratory failure Acute hypercarbic respiratory failure On mechanical ventilator Cardiogenic shock Acute kidney injury Pulmonary edema Metabolic acidosis Hx of nicotine dependence Plan: s/p intubation on mechanical ventilator. ABG reviewed, c/w acidemia. On AC mode; RR 24, VT 500, PEEP 7, FiO2 50% Titrate FIO2 to keep O2 saturation above 90%. VAP bundle. Daily ABG and CXR while intubated Sedate for ventilator synchrony - On Propofol Continue antibiotics. F/u cultures. Heparin drip On pressors for hemodynamic support Levophed 8 mcg/min Titrate to keep mean arterial pressure greater than 65 mmHg. Monitor renal function Monitor electrolytes. Supplement as necessary. Monitor ins and outs. Maintain euvolemia. GI prophylaxis. DVT prophylaxis. Prognosis: Poor given patient's multiple co-morbidities. Condition: Critical Rest of plan per hospitalist and other consultants. A total of 35 minutes of critical care time was spent reviewing the patient record, examining the patient, making a diagnostic and therapeutic plan, discussing this plan with the medical personnel, following up on diagnostic studies and following the patient for clinical stability excluding any and all procedures. At least 50% of this time was spent in direct, [id number] conta ct. Thank you Kaz Sebastian NP, for allowing me to participate in this patient's care. Further recommendations will depend on the patient's clinical course. Please do not hesitate to contact me if you have any questions or concerns. This medical document was created using an electronic medical record system with [employer] computerized dictation system. Although these documentations are being carefully reviewed, there may still be some phonetic and typographical changes. The errors are purely typographical, due to imperfection on the software program, and do not reflect any compromise in the patient's medical care. Plan discussed with: Other (AALIYAH Gallagher, JACK Sebastian MD) DALY CHATMAN MD Mar 31, 2024 21:50
[2024-03-31] MEDS: AMIODARONE BOLUS KIT 100 ML IV ONE (21:55)
[2024-03-31] MEDS: AMIODARONE 450mg/250ml AE 250 ML IV SCH (22:09)
[2024-03-31] MEDS: DIGOXIN (250MCG/ML) 2 ML AMPULE IV ONE (22:52)
[2024-04-01] VITALS (106 sets, daily range): BP systolic 90–139; BP diastolic 33–53; PULSE 72–108; RESP 12–29; TEMP 96.8–99; O2SAT 95–100
[2024-04-01 03:37] LABS: INR 1.07 (0.9-1.15); Partial Thromboplastin Time 69.8 SEC (24.5-34.5); Prothrombin Time 11.3 sec (9.3-11.8)
[2024-04-01] MEDS: AMIODARONE 450mg/250ml AE 250 ML IV SCH (03:55)
[2024-04-01] MEDS: DOBUTamine 1000MCG/ML 250 ML IV SCH (05:25)
[2024-04-01] MEDS: HEPARIN DRIP/D5W 100UNITS/ML 250 ML IV SCH ×3 (05:29→19:45)
--- NOTE | 2024-04-01 05:39 | DVH ---
CHEST RADIOGRAPH Indication: INTUBATED Technique: Single frontal view of the chest was obtained COMPARISON: XY CHEST PORTABLE on DOS: 03/30/24, XY CHEST XRAY 1 VIEW on DOS: 12/05/23, XY CHEST XRAY 1 VIEW on DOS: 12/04/23 FINDINGS: Lines and Tubes: Endotracheal tube, enteric catheter, right PICC and left chest wall AICD in satisfac tory position. Lungs: Multifocal airspace disease. Pleura: No effusion. No pneumothorax. Cardiomediastinal contours: Unremarkable Bones: Unremarkable IMPRESSION: Lines and tubes in satisfactory position. No significant interval change.
[2024-04-01 06:17] LABS: Basophils # (auto) 0 10 ^3/uL (0-0.2); Basophils % (auto) 0.1 % (0.0-2.0); Eosinophils # (auto) 0.1 10 ^3/uL (0-0.8); Eosinophils % (auto) 0.6 % (0.0-7.0); Hematocrit 28.8 % (41.0-53.0); Hemoglobin 9.6 g/dL (13.5-17.5); Lymphocytes # (auto) 1.2 10 ^3/uL (0.4-5.4); Lymphocytes % (auto) 10.6 % (10.0-50.0); Mean Corpuscular Hemoglobin 29.1 pg (28.0-32.0); Mean Corpuscular Hgb Conc. 33.4 g/dL (32.0-36.0); Monocytes % (auto) 9.1 % (0.0-12.0); Neutrophils # (auto) 8.7 10 ^3/uL (1.6-8.6); Neutrophils % (auto) 79.6 % (37.0-80.0); Platelet Count (auto) 130 10^3/uL (140-450); Red Blood Cells 3.31 10^6/uL (4.5-5.90); Red Cell Distribution Width 15.5 % (11.8-14.3); White Blood Cell 10.9 10^3/uL (4.4-10.8)
[2024-04-01 06:29] LABS: Anion Gap 13 (5-15); Carbon Dioxide 20 mmol/L (20-31); Chloride 107 mmol/L (98-107); Potassium 3.8 mmol/L (3.5-5.1); Sodium 140 mmol/L (136-145)
[2024-04-01 06:31] LABS: Calcium 8.6 mg/dL (8.7-10.4)
[2024-04-01 06:35] LABS: BUN/Creatinine Ratio 17.7 (10.0-20.0); Blood Urea Nitrogen 36 mg/dL (9-23)
[2024-04-01 06:36] LABS: Glucose 111 mg/dL (74-106); Magnesium 1.9 mg/dL (1.6-2.6)
[2024-04-01 07:16] LABS: Base Excess -4.7 mmol/L (-2.0-3.0)
[2024-04-01] MEDS: PROPOFOL 100 ML IV SCH (07:34)
[2024-04-01 09:12] LABS: INR 1.08 (0.9-1.15); Prothrombin Time 11.4 sec (9.3-11.8)
[2024-04-01 09:15] LABS: Partial Thromboplastin Time 119.8 SEC (24.5-34.5)
--- NOTE | 2024-04-01 11:21 | DVHPN2 ---
Subjective Intubated and sedated FiO2 35% PEEP of 7 On heparin and amiodarone drips Sedated with Diprivan On dobutamine and Levophed drip Changes from previous H/P or p: Changes Objective Vitals Vital Signs Date Time Temp Pulse Resp B/P (MAP) Pulse Ox O2 Delivery O2 Flow Rate FiO2 04/01/24 10:47 86 24 139/53 (81) 98 30 04/01/24 10:00 Mechanical Ventilator+ 04/01/24 10:00 96.8 206.2 Intake/Output Intake and Output 04/01/24 06:59 Intake Total 2163.216 ml Output Total 1840 ml Balance 323.216 ml Intake Oral 0 ml IV Total 2163.216 ml Output Urine Total 1840 ml General Appearance: Other (Intubated and sedated) Lungs: Clear to auscultation, Normal air movement Cardiovascular: Other (Irregularly irregular) Extremities: No edema Medications Current Medications Medications Dose Ordered Sig/Norah Route Start Time Stop Time Status Last Admin Dose Admin Albuterol 2.5 mg Q4HPRN PRN NEB 03/30/24 21:30 Ipratropium [place] 0.5 mg Q4HPRN PRN NEB 03/30/24 21:30 Digoxin 125 mcg DAILY IV 03/31/24 10:00 04/01/24 09:59 125 MCG Pantoprazole Sodium 40 mg DAILY IV 03/31/24 10:00 04/01/24 09:58 40 MG Diagnostic Test (Pha) 1 strip IQ4HR 03/31/24 00:00 04/01/24 08:02 1 STRIP Insulin Human Regular IQ4HR SC 03/31/24 00:00 04/01/24 08:02 2 UNITS Dextrose 50 ml UD PRN IV 03/30/24 21:30 Sodium Chloride 10 ml Q8HR IV 03/30/24 22:00 04/01/24 06:00 10 ML Ondansetron HCl 4 mg Q4HP PRN IV 03/30/24 21:30 Doxycycline Hyclate 250 ml @ 125 mls/hr Q12H IV 03/30/24 22:00 04/01/24 10:00 125 MLS/HR Ibuprofen 400 mg Q4HP PRN GT 03/30/24 22:00 Nitroglycerin 0.4 mg Q5MINP PRN SL 03/30/24 23:15 Morphine Sulfate 2 mg Q30M PRN IV 03/30/24 23:15 Norepinephrine Bitartrate 250 ml @ 3.75 mls/hr Q24H IV 03/30/24 23:00 04/01/24 01:30 11.25 MLS/HR Furosemide 20 mg DAILY IV 03/31/24 10:00 04/01/24 09:58 20 MG Amiodarone HCl 250 ml @ 16.667 mls/ hr Q15H IV 04/01/24 03:45 04/01/24 03:55 16.667 MLS/HR Dobutamine HCl/ Dextrose 250 ml @ 19.62 mls/ hr [id number] IV 04/01/24 03:15 04/01/24 05:25 19.62 MLS/HR Propofol 100 ml @ 1.962 mls/ hr Q24H IV 04/01/24 03:15 04/01/24 07:34 15.696 MLS/HR Heparin Sodium/ Dextrose 250 ml @ 6 mls/hr Q24H IV 04/01/24 10:20 04/01/24 10:22 6 MLS/HR Fentanyl Citrate 250 ml @ 2.5 mls/hr Q24H IV 04/01/24 10:30 Laboratory Results Laboratory Tests 04/01/24 05:05 Chemistry Test 04/01/24 05:05 Calcium Level 8.6 mg/dL (8.7-10.4) L Magnesium Level 1.9 mg/dL (1.6-2.6) Coagulation Test 03/31/24 11:20 03/31/24 19:21 04/01/24 02:30 04/01/24 08:15 Prothrombin Time 11.6 sec (9.3-11.8) 11.0 sec (9.3-11.8) 11.3 sec (9.3-11.8) 11.4 sec (9.3-11.8) Prothrombin Time INR 1.10 (0.9-1.15) 1.04 (0.9-1.15) 1.07 (0.9-1.15) 1.08 (0.9-1.15) Activated Partial Thromboplast Time 128.9 SEC (24.5-34.5) *H 47.5 SEC (24.5-34.5) H 69.8 SEC (24.5-34.5) H 119.8 SEC (24.5-34.5) *H Cardiac Markers Test 04/01/24 05:05 B-Type Natriuretic Peptide 1215.81 pg/mL (0-100) Blood Gas Results Test 04/01/24 07:01 Arterial Blood pH 7.353 (7.350-7.450) FiO2 % 35.0 Microbiology Microbiology Date/Time Source Procedure Growth Status 03/30/24 20:40 Blood Blood Culture - Preliminary NO GROWTH AFTER 24 HOURS OF INCUBATION. Resulted 03/30/24 20:35 Sputum Gram Stain - Final Resulted 03/30/24 20:35 Sputum Respiratory Culture - Preliminary Resulted Assessment/Plan Assessment/Plan Acute hypoxic respiratory failure Chronic respiratory failure Acute kidney injury due to ATN Cardiogenic shock Pulmonary edema Acute on chronic reduced ejection fraction heart failure COPD Type 2 diabetes Dyslipidemia Hypertension Coronary artery disease status post angioplasty for InStent stenosis NSTEMI Plan Amiodarone drip Heparin drip Dobutamine drip Levophed drip Sedation as needed with a prevent IV doxycycline GI prophylaxis: Protonix Lasix 20 mg IV daily Digoxin Plan discussed with: Other My Orders Orders - NILSA PAULA MD Procedure Category Date Status Time Fentanyl Drip PHA 04/01/24 In Process 2500mcg/250mlns 10:30 Date of Service: Apr 01, 2024 Billing Provider: NILSA PAULA MD Common Visit Codes: [id number] INP/OBS CARE(HIGH) NILSA PAULA MD Apr 01, 2024 11:20
[2024-04-01] MEDS: fentaNYL Drip 2500mCg/250mlNS 250 ML IV SCH (11:28)
[2024-04-01 19:28] LABS: INR 1.07 (0.9-1.15); Prothrombin Time 11.3 sec (9.3-11.8)
[2024-04-01 19:29] LABS: Partial Thromboplastin Time 46.4 SEC (24.5-34.5)
--- NOTE | 2024-04-01 19:46 | DVHPN2 ---
Progress Note - Dictate Date Seen: Apr 01, 2024 Medical Necessity Reason Pt with a Central, PICC or Fol: Yes The following are medically ne: Perez Catheter Reason for perez catheter: Strict I&O Subjective Patient seen and examined at bedside. Sedated, intubated on mechanical ventilator. Overnight events reviewed. vital signs Vital Sign Date Time Temp Pulse Resp B/P (MAP) Pulse Ox O2 Delivery O2 Flow Rate FiO2 04/01/24 19:15 99.0 80 24 121/45 (70) 97 210.2 04/01/24 18:16 30 04/01/24 18:00 Mechanical Ventilator+ Total Intake and Output 03/31/24 03/31/24 04/01/24 15:00 23:00 07:00 Intake Total 601.870 ml 722.343 ml 907.486 ml Output Total 190 ml 250 ml 1400 ml Balance 411.870 ml 472.343 ml -492.514 ml medications Current Medications Medications Dose Ordered Sig/Norah Route Start Time Stop Time Status Last Admin Dose Admin Albuterol 2.5 mg Q4HPRN PRN NEB 03/30/24 21:30 Ipratropium [place] 0.5 mg Q4HPRN PRN NEB 03/30/24 21:30 Digoxin 125 mcg DAILY IV 03/31/24 10:00 04/01/24 09:59 125 MCG Pantoprazole Sodium 40 mg DAILY IV 03/31/24 10:00 04/01/24 09:58 40 MG Diagnostic Test (Pha) 1 strip IQ4HR 03/31/24 00:00 04/01/24 16:00 1 STRIP Insulin Human Regular IQ4HR SC 03/31/24 00:00 04/01/24 16:00 2 UNITS Dextrose 50 ml UD PRN IV 03/30/24 21:30 Sodium Chloride 10 ml Q8HR IV 03/30/24 22:00 04/01/24 11:30 10 ML Ondansetron HCl 4 mg Q4HP PRN IV 03/30/24 21:30 Doxycycline Hyclate 250 ml @ 125 mls/hr Q12H IV 03/30/24 22:00 04/01/24 10:00 125 MLS/HR Ibuprofen 400 mg Q4HP PRN GT 03/30/24 22:00 Nitroglycerin 0.4 mg Q5MINP PRN SL 03/30/24 23:15 Morphine Sulfate 2 mg Q30M PRN IV 03/30/24 23:15 Norepinephrine Bitartrate 250 ml @ 3.75 mls/hr Q24H IV 03/30/24 23:00 04/01/24 01:30 11.25 MLS/HR Furosemide 20 mg DAILY IV 03/31/24 10:00 04/01/24 09:58 20 MG Amiodarone HCl 250 ml @ 16.667 mls/ hr Q15H IV 04/01/24 03:45 04/01/24 17:08 16.667 MLS/HR Dobutamine HCl/ Dextrose 250 ml @ 19.62 mls/ hr [id number] IV 04/01/24 03:15 04/01/24 18:29 19.62 MLS/HR Propofol 100 ml @ 1.962 mls/ hr Q24H IV 04/01/24 03:15 04/01/24 15:29 19.62 MLS/HR Fentanyl Citrate 250 ml @ 2.5 mls/hr Q24H IV 04/01/24 10:30 04/01/24 11:28 2.5 MLS/HR Heparin Sodium/ Dextrose 250 ml @ 8 mls/hr Q24H IV 04/01/24 19:45 objective Gen.: Patient lying in bed in medical ICU. Sedated, intubated on mechanical ventilator. Head: Normocephalic, atraumatic. Eyes: PERRLA. Ears: Normal external anatomy. Throat: Endotracheal tube and orogastric tube in place. Neck: Supple, trachea midline. Chest: Transmitted breath sounds bilaterally. Decreased air entry bilaterally. No wheezing. Bibasilar crackles. Cardiovascular: Positive S1, positive S2. Regular rate and rhythm. Abdomen: Positive bowel sounds in all 4 quadrants. Soft, nontender, nondistended. : Perez in place. Normal external genitalia. Rectal: Deferred. Skin: Warm, dry. Intact. Extremities: 2+ radial pulses bilaterally. No lower extremity edema. Neuro: Sedated. laboratory and microbiology Laboratory Tests 04/01/24 05:05 Test 04/01/24 05:05 Range/Units Serum Glucose 111 #H 74-106 mg/dL Assessment/Plan Impression: Acute hypoxic respiratory failure Acute hypercarbic respiratory failure On mechanical ventilator Cardiogenic shock Acute kidney injury Pulmonary edema Metabolic acidosis Hx of nicotine dependence Events: Remains on vent support On AC mode; RR 24, VT 500, PEEP 7, FiO2 30% Decrease PEEP to 5. Sedated on Propofol, Fentanyl Heparin drip. Amiodarone drip. Dobutamine 5 mcg/kg/min for inotropic support. Discussed plan of care with NOK. Patient is modified code. No compressions or ACLS meds. No reintubation. Labs and imaging reviewed. Rest of plan as noted below. Plan: s/p intubation on mechanical ventilator. ABG reviewed, c/w acidemia. Settings changed to AC mode; RR 24, VT 500, PEEP 5, FiO2 30% Titrate FIO2 to keep O2 saturation above 90%. VAP bundle. Daily ABG and CXR while intubated Sedate for ventilator synchrony - On Propofol, Fentanyl Continue antibiotics. F/u cultures. Heparin drip On pressors for hemodynamic support On Levophed Titrate to keep mean arterial pressure greater than 65 mmHg. Monitor renal function Monitor electrolytes. Supplement as necessary. Monitor ins and outs. Maintain euvolemia. GI prophylaxis. DVT prophylaxis. Prognosis: Poor given patient's multiple co-morbidities. Condition: Critical Rest of plan per hospitalist and other consultants. A total of 35 minutes of critical care time was spent reviewing the patient record, examining the patient, making a diagnostic and therapeutic plan, discussing this plan with the medical personnel, following up on diagnostic studies and following the patient for clinical stability excluding any and all procedures. At least 50% of this time was spent in direct, [id number] contact. Thank you Kaz Sebastian NP, for allowing me to participate in this patient's care. Further recommendations will depend on the patient's clinical course. Please do not hesitate to contact me if you have any questions or concerns. This medical document was created using an electronic medical record system with [employer] dictation system. Although these documentations are being carefully reviewed, there may still be some phonetic and typographical changes. The errors are purely typographical, due to imperfection on the software program, and do not reflect any compromise in the patient's medical care. Dietary Evaluation Review Comments: 1. Consider EN/TPN if NPO>7 days 2. Consider plan of care 3. Consider nepro TF goal rate of 35ml/hr to provide 1512kcal, 68g pro when medically appropriate Expected Outcomes/Goals: 1. Pt will consume >75% of estimated needs within 2-3 days Plan discussed with: Spouse, Other (AALIYAH Juarez) Critical Care Time(min): 35 DALY CHATMAN MD Apr 01, 2024 19:46
[2024-04-02] VITALS (106 sets, daily range): BP systolic 96–154; BP diastolic 34–66; PULSE 9–115; RESP 12–28; TEMP 97.2–99.3; O2SAT 89–100
[2024-04-02 03:00] LABS: Prothrombin Time 11.4 sec (9.3-11.8)
[2024-04-02 03:01] LABS: INR 1.08 (0.9-1.15)
[2024-04-02 03:12] LABS: Partial Thromboplastin Time 56.8 SEC (24.5-34.5)
--- NOTE | 2024-04-02 05:45 | DVH ---
CHEST RADIOGRAPH Indication: mechanically ventilated,routine check Technique: Single frontal view of the chest was obtained Comparison: XY CHEST PORTABLE on DOS: 04/01/24, XY CHEST PORTABLE on DOS: 03/30/24, XY CHEST XRAY 1 V IEW on DOS: 12/05/23 FINDINGS: It appears relatively normal in size. Trace bilateral pleural effusions. Interstitial prominence. S upport lines and tubes appear unchanged in satisfactory in position. Enteric tube tip is beyond the l evel of this examination. IMPRESSION: 1. No significant interval change
[2024-04-02 06:05] LABS: Basophils # (auto) 0 10 ^3/uL (0-0.2); Basophils % (auto) 0.2 % (0.0-2.0); Eosinophils # (auto) 0.4 10 ^3/uL (0-0.8); Eosinophils % (auto) 4.1 % (0.0-7.0); Hematocrit 26.1 % (41.0-53.0); Hemoglobin 8.8 g/dL (13.5-17.5); Lymphocytes # (auto) 1.2 10 ^3/uL (0.4-5.4); Lymphocytes % (auto) 13.3 % (10.0-50.0); Mean Corpuscular Hemoglobin 29.4 pg (28.0-32.0); Mean Corpuscular Hgb Conc. 33.9 g/dL (32.0-36.0); Mean Corpuscular Volume 86.6 fL (80.0-100.0); Monocytes # (auto) 0.8 10 ^3/uL (0-1.3); Monocytes % (auto) 9.1 % (0.0-12.0); Neutrophils # (auto) 6.8 10 ^3/uL (1.6-8.6); Neutrophils % (auto) 73.3 % (37.0-80.0); Nucleated Red Blood Cells % 0.1 %; Platelet Count (auto) 148 10^3/uL (140-450); Red Blood Cells 3.01 10^6/uL (4.5-5.90); Red Cell Distribution Width 15.3 % (11.8-14.3); White Blood Cell 9.3 10^3/uL (4.4-10.8)
[2024-04-02 06:22] LABS: Alanine Aminotransferase 115 U/L (7-40); Albumin 3.1 g/dL (3.2-4.8); Alkaline Phosphatase 107 U/L (46-116); Anion Gap 11 (5-15); Aspartate Aminotransferase 57 U/L (13-40); BUN/Creatinine Ratio 18.1 (10.0-20.0); Blood Urea Nitrogen 32 mg/dL (9-23); Calcium 8.4 mg/dL (8.7-10.4); Carbon Dioxide 22 mmol/L (20-31); Chloride 106 mmol/L (98-107); Glucose 136 mg/dL (74-106); Magnesium 1.8 mg/dL (1.6-2.6); Potassium 3.8 mmol/L (3.5-5.1); Sodium 139 mmol/L (136-145)
[2024-04-02 06:23] LABS: Bilirubin, Total 0.4 mg/dL (0.2-1.0); Total Protein 5.3 g/dL (5.7-8.2)
[2024-04-02 08:14] LABS: Base Excess -3.5 mmol/L (-2.0-3.0)
[2024-04-02 08:27] LABS: INR 1.06 (0.9-1.15); Partial Thromboplastin Time 46.9 SEC (24.5-34.5); Prothrombin Time 11.2 sec (9.3-11.8)
--- NOTE | 2024-04-02 08:38 | DVHPN2 ---
Progress Note - Dictate Date Seen: Apr 02, 2024 Medical Necessity Reason Pt with a Central, PICC or Fol: Yes The following are medically ne: Perez Catheter Reason for perez catheter: Strict I&O Subjective PT WITH ELEVATED TROPONIN >33237 I WAS CALLED PT WAS IN AFIB RVR ISCHEMIC CM EF <20% S/P BiV AICD NOW WITH LEUKOCYTOSIS CXR INFILTARTIVE PROCESS WITH RESOLUTING CONSISTENT WITH ACUTE DECOMPENSATION OF HFrEF RESP FAILURE INTUBATED vital signs Vital Sign Date Time Temp Pulse Resp B/P (MAP) Pulse Ox O2 Delivery O2 Flow Rate FiO2 04/02/24 07:30 78 24 114/38 (63) 98 30 04/02/24 06:45 98.2 208.8 04/02/24 06:00 Mechanical Ventilator+ Total Intake and Output 04/01/24 04/01/24 04/02/24 15:00 23:00 07:00 Intake Total 860.256 ml 861.006 ml 497.729 ml Output Total 1350 ml 900 ml Balance 860.256 ml -488.994 ml -402.271 ml medications Current Medications Medications Dose Ordered Sig/Norah Route Start Time Stop Time Status Last Admin Dose Admin Albuterol 2.5 mg Q4HPRN PRN NEB 03/30/24 21:30 Ipratropium [place] 0.5 mg Q4HPRN PRN NEB 03/30/24 21:30 Digoxin 125 mcg DAILY IV 03/31/24 10:00 04/01/24 09:59 125 MCG Pantoprazole Sodium 40 mg DAILY IV 03/31/24 10:00 04/01/24 09:58 40 MG Diagnostic Test (Pha) 1 strip IQ4HR 03/31/24 00:00 04/02/24 08:08 1 STRIP Insulin Human Regular IQ4HR SC 03/31/24 00:00 04/02/24 08:09 2 UNITS Dextrose 50 ml UD PRN IV 03/30/24 21:30 Sodium Chloride 10 ml Q8HR IV 03/30/24 22:00 04/02/24 06:11 10 ML Ondansetron HCl 4 mg Q4HP PRN IV 03/30/24 21:30 Doxycycline Hyclate 250 ml @ 125 mls/hr Q12H IV 03/30/24 22:00 04/01/24 21:44 125 MLS/HR Ibuprofen 400 mg Q4HP PRN GT 03/30/24 22:00 Nitroglycerin 0.4 mg Q5MINP PRN SL 03/30/24 23:15 Morphine Sulfate 2 mg Q30M PRN IV 03/30/24 23:15 Norepinephrine Bitartrate 250 ml @ 3.75 mls/hr Q24H IV 03/30/24 23:00 04/01/24 22:25 11.25 MLS/HR Furosemide 20 mg DAILY IV 03/31/24 10:00 04/01/24 09:58 20 MG Amiodarone HCl 250 ml @ 16.667 mls/ hr Q15H IV 04/01/24 03:45 04/02/24 06:52 16.667 MLS/HR Dobutamine HCl/ Dextrose 250 ml @ 19.62 mls/ hr [id number] IV 04/01/24 03:15 04/02/24 06:51 19.62 MLS/HR Propofol 100 ml @ 1.962 mls/ hr Q24H IV 04/01/24 03:15 04/02/24 05:22 15.696 MLS/HR Fentanyl Citrate 250 ml @ 2.5 mls/hr Q24H IV 04/01/24 10:30 04/01/24 11:28 2.5 MLS/HR Heparin Sodium/ Dextrose 250 ml @ 8 mls/hr Q24H IV 04/01/24 19:45 laboratory and microbiology Laboratory Tests 04/02/24 05:03 Test 04/02/24 05:03 Range/Units Serum Glucose 136 H 74-106 mg/dL Problem List HFrEF ACUTE ACUTE ISCHEMIC EVENT LEUKOCYTOSIS ANEMIA RENAL INSUFF CKD STAGE III RESP FAILURE AFIB RVR Assessment/Plan DOBUTAMINE AMIODARONE DRIP DIG INOTROPIC SUPPORT [facility] Dietary Evaluation Review Comments: 1. Consider EN/TPN if NPO>7 days 2. Consider plan of care 3. Consider nepro TF goal rate of 35ml/hr to provide 1512kcal, 68g pro when medically appropriate Expected Outcomes/Goals: 1. Pt will consume >75% of estimated needs within 2-3 days Plan discussed with: Patient Critical Care Time(min): 35 CHRISSIE EVERETT MD Apr 02, 2024 08:38
--- NOTE | 2024-04-02 09:40 | MEDREC ---
[facility] ASP Intervention Section I [facility] ASP Intervention: Review courses of therapy (MRSA SCREEN POSITIVE CONSIDER ADDING MUPIROCIN 2% OINTMENT 1 APPLICATION IN EACH NOSTRIL BID FOR 5 DAYS ) SRAVAN RITCHIE PHARMACIST Apr 02, 2024 09:40
[2024-04-02] MEDS: HEPARIN DRIP/D5W 100UNITS/ML 250 ML IV SCH (09:56)
[2024-04-02 12:53] LABS: Base Excess -4.2 mmol/L (-2.0-3.0)
--- NOTE | 2024-04-02 14:19 | CONS ---
Pharmacy Clinical Information: CQM HF Report. Patient is currently unstable (possible cardiogenic shock), i ntubated and is NPO. Once patient is stable, consider restarting home medications (Losartan, Carvedilol, Empagliflozin and atorvastatin) and initiating a MRA while hospitalized to closely monitor for possible hyperkalemia as patient's potassium levels were previously elevated during this visit. JUAREZ CASEY PHARMACIST Apr 02, 2024 14:19
[2024-04-02 15:28] LABS: INR 1.07 (0.9-1.15); Partial Thromboplastin Time 60.1 SEC (24.5-34.5); Prothrombin Time 11.3 sec (9.3-11.8)
--- NOTE | 2024-04-02 15:29 | DVHPN2 ---
Subjective Seen and examined at bedside, patient is intubated on 35% Fio2, PEEP 5. Opens eyes, following commands. Extubate today Changes from previous H/P or p: No Changes System Changes Unable to obtain, intubated Objective Vitals Vital Signs Date Time Temp Pulse Resp B/P (MAP) Pulse Ox O2 Delivery O2 Flow Rate FiO2 04/02/24 14:44 97 Cool Aerosol 8 40 40 04/02/24 13:45 98.6 104 18 128/47 (74) 209.5 Intake/Output Intake and Output 04/02/24 07:00 Intake Total 2288.974 ml Output Total 2250 ml Balance 38.974 ml Intake Oral 0 ml IV Total 2288.974 ml Output Urine Total 2250 ml Exam Gen: in bed intubated Cvs: Tachycardic Resp: Creps, BLAE Abd: Soft Performance Reporter: Opens eyes, follows commands General Appearance: Other (Intubated and sedated) Cardiovascular: Other (Irregularly irregular) Medications Current Medications Medications Dose Ordered Sig/Norah Route Start Time Stop Time Status Last Admin Dose Admin Albuterol 2.5 mg Q4HPRN PRN NEB 03/30/24 21:30 Ipratropium [place] 0.5 mg Q4HPRN PRN NEB 03/30/24 21:30 Digoxin 125 mcg DAILY IV 03/31/24 10:00 04/02/24 09:58 125 MCG Pantoprazole Sodium 40 mg DAILY IV 03/31/24 10:00 04/02/24 09:57 40 MG Diagnostic Test (Pha) 1 strip IQ4HR 03/31/24 00:00 04/02/24 12:21 1 STRIP Insulin Human Regular IQ4HR SC 03/31/24 00:00 04/02/24 12:26 3 UNITS Dextrose 50 ml UD PRN IV 03/30/24 21:30 Sodium Chloride 10 ml Q8HR IV 03/30/24 22:00 04/02/24 14:24 10 ML Ondansetron HCl 4 mg Q4HP PRN IV 03/30/24 21:30 Doxycycline Hyclate 250 ml @ 125 mls/hr Q12H IV 03/30/24 22:00 04/02/24 09:59 125 MLS/HR Ibuprofen 400 mg Q4HP PRN GT 03/30/24 22:00 Nitroglycerin 0.4 mg Q5MINP PRN SL 03/30/24 23:15 Morphine Sulfate 2 mg Q30M PRN IV 03/30/24 23:15 Norepinephrine Bitartrate 250 ml @ 3.75 mls/hr Q24H IV 03/30/24 23:00 04/01/24 22:25 11.25 MLS/HR Furosemide 20 mg DAILY IV 03/31/24 10:00 04/02/24 09:57 20 MG Amiodarone HCl 250 ml @ 16.667 mls/ hr Q15H IV 04/01/24 03:45 04/02/24 06:52 16.667 MLS/HR Dobutamine HCl/ Dextrose 250 ml @ 19.62 mls/ hr [id number] IV 04/01/24 03:15 04/02/24 06:51 19.62 MLS/HR Propofol 100 ml @ 1.962 mls/ hr Q24H IV 04/01/24 03:15 04/02/24 05:22 15.696 MLS/HR Fentanyl Citrate 250 ml @ 2.5 mls/hr Q24H IV 04/01/24 10:30 04/01/24 11:28 2.5 MLS/HR Heparin Sodium/ Dextrose 250 ml @ 10 mls/hr Q24H IV 04/02/24 09:00 04/02/24 09:56 10 MLS/HR Laboratory Results Laboratory Tests 04/02/24 05:03 Chemistry Test 04/02/24 05:03 Albumin 3.1 g/dL (3.2-4.8) L Calcium Level 8.4 mg/dL (8.7-10.4) L Magnesium Level 1.8 mg/dL (1.6-2.6) Total Protein 5.3 g/dL (5.7-8.2) L Coagulation Test 04/01/24 18:00 04/02/24 01:50 04/02/24 08:05 04/02/24 15:02 Prothrombin Time 11.3 sec (9.3-11.8) 11.4 sec (9.3-11.8) 11.2 sec (9.3-11.8) Pending Prothrombin Time INR 1.07 (0.9-1.15) 1.08 (0.9-1.15) 1.06 (0.9-1.15) Pending Activated Partial Thromboplast Time 46.4 SEC (24.5-34.5) H 56.8 SEC (24.5-34.5) H 46.9 SEC (24.5-34.5) H Pending LFT Test 04/02/24 05:03 Alanine Aminotransferase (ALT) 115 U/L (7-40) H Alkaline Phosphatase 107 U/L (46-116) Aspartate Amino Transferase (AST) 57 U/L (13-40) H Total Bilirubin 0.4 mg/dL (0.2-1.0) Blood Gas Results Test 04/02/24 08:05 04/02/24 12:48 Arterial Blood pH 7.401 (7.350-7.450) 7.405 (7.350-7.450) FiO2 % 30.0 30.0 Microbiology Microbiology Date/Time Source Procedure Growth Status 03/31/24 15:29 Nose MRSA Screen - Final Methicillin Resistant S.aureus Complete 03/30/24 20:40 Blood Blood Culture - Preliminary NO GROWTH AFTER 48 HOURS OF INCUBATION. Resulted 03/30/24 20:35 Sputum Gram Stain - Final Complete 03/30/24 20:35 Respiratory Culture - Final Methicillin Resistant S.aureus Complete Assessment/Plan Assessment/Plan # Acute on Chronic Resp Failure - On Mechanical ventilation # Cardiogenic Shock - On Dobutamine and Levophed # LOURDES due to ATN - Monitor renal function, Nephro cx # Possible Sepsis? - On Doxy, DC Vanco due to renal impairment # Pulm Edema Critical care time 40 mins Plan discussed with: Patient My Orders Orders - BEVERLEY ACZARES MD Procedure Category Date Status Time Vancomycin Per PHA 04/02/24 Verified Pharmacy 15:30 Basic Metabolic Panel LAB 04/03/24 Verified 04:00 B-Type Natriuretic LAB 04/03/24 Verified Peptide 04:00 Date of Service: Apr 02, 2024 Billing Provider: BEVERLEY CAZARES MD Common Visit Codes: [id number] CARE 30-74 MIN BEVERLEY CAZARES MD Apr 02, 2024 15:29
[2024-04-02] MEDS ORDERED: VANCOMYCIN PER PHARMACY 0 MG IV SCH (15:30)
--- NOTE | 2024-04-02 17:17 | DVHPN2 ---
Subjective Seen and examined at bedside, patient is intubated on 35% Fio2, PEEP 5. Opens eyes, following commands. Extubate today. MRSA PNA. Start vanco Changes from previous H/P or p: No Changes System Changes Unable to obtain, intubated Objective Vitals Vital Signs Date Time Temp Pulse Resp B/P (MAP) Pulse Ox O2 Delivery O2 Flow Rate FiO2 04/02/24 14:44 97 Cool Aerosol 8 40 40 04/02/24 13:45 98.6 104 18 128/47 (74) 209.5 Intake/Output Intake and Output 04/02/24 07:00 Intake Total 2288.974 ml Output Total 2250 ml Balance 38.974 ml Intake Oral 0 ml IV Total 2288.974 ml Output Urine Total 2250 ml Exam Gen: in bed intubated Cvs: Tachycardic Resp: Creps, BLAE Abd: Soft Picker Feeder: Opens eyes, follows commands General Appearance: Other (Intubated and sedated) Cardiovascular: Other (Irregularly irregular) Medications Current Medications Medications Dose Ordered Sig/Norah Route Start Time Stop Time Status Last Admin Dose Admin Albuterol 2.5 mg Q4HPRN PRN NEB 03/30/24 21:30 Ipratropium [place] 0.5 mg Q4HPRN PRN NEB 03/30/24 21:30 Digoxin 125 mcg DAILY IV 03/31/24 10:00 04/02/24 09:58 125 MCG Pantoprazole Sodium 40 mg DAILY IV 03/31/24 10:00 04/02/24 09:57 40 MG Diagnostic Test (Pha) 1 strip IQ4HR 03/31/24 00:00 04/02/24 12:21 1 STRIP Insulin Human Regular IQ4HR SC 03/31/24 00:00 04/02/24 12:26 3 UNITS Dextrose 50 ml UD PRN IV 03/30/24 21:30 Sodium Chloride 10 ml Q8HR IV 03/30/24 22:00 04/02/24 14:24 10 ML Ondansetron HCl 4 mg Q4HP PRN IV 03/30/24 21:30 Doxycycline Hyclate 250 ml @ 125 mls/hr Q12H IV 03/30/24 22:00 04/02/24 09:59 125 MLS/HR Ibuprofen 400 mg Q4HP PRN GT 03/30/24 22:00 Nitroglycerin 0.4 mg Q5MINP PRN SL 03/30/24 23:15 Morphine Sulfate 2 mg Q30M PRN IV 03/30/24 23:15 Norepinephrine Bitartrate 250 ml @ 3.75 mls/hr Q24H IV 03/30/24 23:00 04/01/24 22:25 11.25 MLS/HR Furosemide 20 mg DAILY IV 03/31/24 10:00 04/02/24 09:57 20 MG Amiodarone HCl 250 ml @ 16.667 mls/ hr Q15H IV 04/01/24 03:45 04/02/24 06:52 16.667 MLS/HR Dobutamine HCl/ Dextrose 250 ml @ 19.62 mls/ hr [id number] IV 04/01/24 03:15 04/02/24 06:51 19.62 MLS/HR Propofol 100 ml @ 1.962 mls/ hr Q24H IV 04/01/24 03:15 04/02/24 05:22 15.696 MLS/HR Fentanyl Citrate 250 ml @ 2.5 mls/hr Q24H IV 04/01/24 10:30 04/01/24 11:28 2.5 MLS/HR Heparin Sodium/ Dextrose 250 ml @ 10 mls/hr Q24H IV 04/02/24 09:00 04/02/24 09:56 10 MLS/HR Laboratory Results Laboratory Tests 04/02/24 05:03 Chemistry Test 04/02/24 05:03 Albumin 3.1 g/dL (3.2-4.8) L Calcium Level 8.4 mg/dL (8.7-10.4) L Magnesium Level 1.8 mg/dL (1.6-2.6) Total Protein 5.3 g/dL (5.7-8.2) L Coagulation Test 04/01/24 18:00 04/02/24 01:50 04/02/24 08:05 04/02/24 15:02 Prothrombin Time 11.3 sec (9.3-11.8) 11.4 sec (9.3-11.8) 11.2 sec (9.3-11.8) 11.3 sec (9.3-11.8) Prothrombin Time INR 1.07 (0.9-1.15) 1.08 (0.9-1.15) 1.06 (0.9-1.15) 1.07 (0.9-1.15) Activated Partial Thromboplast Time 46.4 SEC (24.5-34.5) H 56.8 SEC (24.5-34.5) H 46.9 SEC (24.5-34.5) H 60.1 SEC (24.5-34.5) H LFT Test 04/02/24 05:03 Alanine Aminotransferase (ALT) 115 U/L (7-40) H Alkaline Phosphatase 107 U/L (46-116) Aspartate Amino Transferase (AST) 57 U/L (13-40) H Total Bilirubin 0.4 mg/dL (0.2-1.0) Blood Gas Results Test 04/02/24 08:05 04/02/24 12:48 Arterial Blood pH 7.401 (7.350-7.450) 7.405 (7.350-7.450) FiO2 % 30.0 30.0 Microbiology Microbiology Date/Time Source Procedure Growth Status 03/31/24 15:29 Nose MRSA Screen - Final Methicillin Resistant S.aureus Complete 03/30/24 20:40 Blood Blood Culture - Preliminary NO GROWTH AFTER 48 HOURS OF INCUBATION. Resulted 03/30/24 20:35 Sputum Gram Stain - Final Complete 03/30/24 20:35 Respiratory Culture - Final Methicillin Resistant S.aureus Complete Assessment/Plan Assessment/Plan # Acute on Chronic Resp Failure - On Mechanical ventilation # Cardiogenic Shock - On Dobutamine and Levophed # LOURDES due to ATN - Monitor renal function, Nephro cx # Possible Sepsis due to MRSA PNA - On Doxy, Resume Vanco monitor due to renal impairment # Pulm Edema Critical care time 40 mins Plan discussed with: Patient My Orders Orders - BEVERLEY CAZARES MD Procedure Category Date Status Time Vancomycin Per PHA 04/02/24 Verified Pharmacy 15:30 Basic Metabolic Panel LAB 04/03/24 Verified 04:00 B-Type Natriuretic LAB 04/03/24 Verified Peptide 04:00 Date of Service: Apr 02, 2024 Billing Provider: BEVERLEY CAZARES MD Common Visit Codes: NOT BILLABLE BEVERLEY CAZARES MD Apr 02, 2024 17:17
[2024-04-02] MEDS: VANCOMYCIN 1GM/250ML KIT 200 ML IV ONE (18:21)
[2024-04-02 21:55] LABS: INR 1.08 (0.9-1.15); Partial Thromboplastin Time 69.5 SEC (24.5-34.5); Prothrombin Time 11.4 sec (9.3-11.8)
[2024-04-02] MEDS: MUPIROCIN 2% OINT 15gm or 22gm TOP ONE (23:00)
[2024-04-03] VITALS (43 sets, daily range): BP systolic 118–145; BP diastolic 40–54; PULSE 89–105; RESP 14–24; TEMP 97.9–99.7; O2SAT 91–97
--- NOTE | 2024-04-03 00:01 | DVHPN2 ---
Progress Note - Dictate Date Seen: Apr 02, 2024 Medical Necessity Reason Pt with a Central, PICC or Fol: Yes The following are medically ne: Perez Catheter Reason for perez catheter: Strict I&O Subjective Patient seen and examined at bedside. S/p extubaiton, on supplemental oxygen Overnight events reviewed. vital signs Vital Sign Date Time Temp Pulse Resp B/P (MAP) Pulse Ox O2 Delivery O2 Flow Rate FiO2 04/02/24 23:00 99.3 91 16 126/48 (74) 96 210.7 04/02/24 22:00 Mechanical Ventilator+ 30 30 04/02/24 20:00 4 Total Intake and Output 04/02/24 04/02/24 04/03/24 15:00 23:00 07:00 Intake Total 673.090 ml 370.296 ml Output Total 2150 ml Balance 673.090 ml -1779.704 ml medications Current Medications Medications Dose Ordered Sig/Norah Route Start Time Stop Time Status Last Admin Dose Admin Albuterol 2.5 mg Q4HPRN PRN NEB 03/30/24 21:30 Ipratropium [place] 0.5 mg Q4HPRN PRN NEB 03/30/24 21:30 Digoxin 125 mcg DAILY IV 03/31/24 10:00 04/02/24 09:58 125 MCG Pantoprazole Sodium 40 mg DAILY IV 03/31/24 10:00 04/02/24 09:57 40 MG Diagnostic Test (Pha) 1 strip IQ4HR 03/31/24 00:00 04/02/24 20:20 1 STRIP Insulin Human Regular IQ4HR SC 03/31/24 00:00 04/02/24 17:33 3 UNITS Dextrose 50 ml UD PRN IV 03/30/24 21:30 Sodium Chloride 10 ml Q8HR IV 03/30/24 22:00 04/02/24 22:33 10 ML Ondansetron HCl 4 mg Q4HP PRN IV 03/30/24 21:30 Doxycycline Hyclate 250 ml @ 125 mls/hr Q12H IV 03/30/24 22:00 04/02/24 22:33 125 MLS/HR Ibuprofen 400 mg Q4HP PRN GT 03/30/24 22:00 Nitroglycerin 0.4 mg Q5MINP PRN SL 03/30/24 23:15 Morphine Sulfate 2 mg Q30M PRN IV 03/30/24 23:15 Norepinephrine Bitartrate 250 ml @ 3.75 mls/hr Q24H IV 03/30/24 23:00 04/01/24 22:25 11.25 MLS/HR Furosemide 20 mg DAILY IV 03/31/24 10:00 04/02/24 09:57 20 MG Amiodarone HCl 250 ml @ 16.667 mls/ hr Q15H IV 04/01/24 03:45 04/02/24 20:38 16.667 MLS/HR Dobutamine HCl/ Dextrose 250 ml @ 19.62 mls/ hr [id number] IV 04/01/24 03:15 04/02/24 20:38 19.62 MLS/HR Propofol 100 ml @ 1.962 mls/ hr Q24H IV 04/01/24 03:15 04/02/24 05:22 15.696 MLS/HR Fentanyl Citrate 250 ml @ 2.5 mls/hr Q24H IV 04/01/24 10:30 04/01/24 11:28 2.5 MLS/HR Heparin Sodium/ Dextrose 250 ml @ 10 mls/hr Q24H IV 04/02/24 09:00 04/02/24 09:56 10 MLS/HR Vancomycin HCl 0 ml @ 0 mls/hr UD IV 04/02/24 15:30 Mupirocin 1 applic BID EACHNOSTRI 04/03/24 10:00 04/08/24 09:59 objective Gen.: Patient lying in bed in no apparent distress. On supplemental oxygen. Head: Normocephalic, atraumatic. Eyes: EOMI/PERRLA. Ears: Normal hearing. Normal anatomy. Neck/trachea: Trachea midline, supple. Nose: Normal external anatomy. Mouth: Moist mucous membranes. Chest: Decreased air entry bilaterally. No wheezing or rhonchi. Cardiovascular: Positive S1, positive S2. Regular rate and rhythm. Abdomen: Positive bowel sounds in all 4 quadrants. Soft, non-tender, non- distended. : Deferred. Rectal: Deferred. Skin: Warm, dry. Intact. Extremities: 2+ radial pulses bilaterally. No lower extremity edema. Neuro: Awake, alert, oriented x3. No gross motor or sensory deficits. Cranial nerves II through XII intact. Gait not assessed. laboratory and microbiology Laboratory Tests 04/02/24 05:03 Test 04/02/24 05:03 Range/Units Serum Glucose 136 H 74-106 mg/dL Assessment/Plan Impression: Acute hypoxic respiratory failure Acute hypercarbic respiratory failure On mechanical ventilator Cardiogenic shock Acute kidney injury Pulmonary edema Metabolic acidosis Hx of nicotine dependence Events: Patient is s/p extubation. Currently on 4 LPM NC supplemental oxygen Taper O2 as tolerated. Heparin drip. Amiodarone drip. Dobutamine 5 mcg/kg/min for inotropic support. Cardiology recs appreciated. Off pressors, hemodynamically stable. Labs and imaging reviewed. Rest of plan as noted below. Plan: s/p extubation On 4 LPM NC supplemental oxygen Taper O2 as tolerated. On Propofol drip. Continue antibiotics. F/u cultures. Heparin drip Pressors as necessary for hemodynamic support - currently off Titrate to keep mean arterial pressure greater than 65 mmHg. Monitor renal function Monitor electrolytes. Supplement as necessary. Monitor ins and outs. Maintain euvolemia. GI prophylaxis. DVT prophylaxis. Patient is modified code. No compressions or ACLS meds. No reintubation. Prognosis: Poor given patient's multiple co-morbidities. Condition: Critical Rest of plan per hospitalist and other consultants. A total of 35 minutes of critical care time was spent reviewing the patient record, examining the patient, making a diagnostic and therapeutic plan, discussing this plan with the medical personnel, following up on diagnostic studies and following the patient for clinical stability excluding any and all procedures. At least 50% of this time was spent in direct, [id number] contact. Thank you Kaz Sebastian NP, for allowing me to participate in this patient's care. Further recommendations will depend on the patient's clinical course. Please do not hesitate to contact me if you have any questions or concerns. This medical document was created using an electronic medical record system with [employer] dictation system. Although these documentations are being carefully reviewed, there may still be some phonetic and typographical changes. The errors are purely typographical, due to imperfection on the software program, and do not reflect any compromise in the patient's medical care. Dietary Evaluation Review Comments: 1. Consider EN/TPN if NPO>7 days 2. Consider plan of care 3. Consider nepro TF goal rate of 35ml/hr to provide 1512kcal, 68g pro when medically appropriate Expected Outcomes/Goals: 1. Pt will consume >75% of estimated needs within 2-3 days Plan discussed with: Other (AALIYAH Gallagher) Critical Care Time(min): 35 DALY CHATMAN MD Apr 03, 2024 00:01
[2024-04-03 03:04] LABS: Basophils # (auto) 0 10 ^3/uL (0-0.2); Basophils % (auto) 0.2 % (0.0-2.0); Eosinophils # (auto) 0.1 10 ^3/uL (0-0.8); Eosinophils % (auto) 1.3 % (0.0-7.0); Hematocrit 25.4 % (41.0-53.0); Hemoglobin 8.4 g/dL (13.5-17.5); Lymphocytes # (auto) 0.8 10 ^3/uL (0.4-5.4); Lymphocytes % (auto) 11.1 % (10.0-50.0); Mean Corpuscular Hemoglobin 28.5 pg (28.0-32.0); Mean Corpuscular Volume 86.3 fL (80.0-100.0); Monocytes # (auto) 0.6 10 ^3/uL (0-1.3); Monocytes % (auto) 7.4 % (0.0-12.0); Neutrophils # (auto) 6.1 10 ^3/uL (1.6-8.6); Nucleated Red Blood Cells % 0.1 %; Platelet Count (auto) 158 10^3/uL (140-450); Red Blood Cells 2.94 10^6/uL (4.5-5.90); Red Cell Distribution Width 15.9 % (11.8-14.3); White Blood Cell 7.7 10^3/uL (4.4-10.8)
[2024-04-03 03:08] LABS: Chloride 111 mmol/L (98-107); Potassium 3.5 mmol/L (3.5-5.1); Sodium 143 mmol/L (136-145)
[2024-04-03 03:09] LABS: Anion Gap 10 (5-15); Calcium 8.6 mg/dL (8.7-10.4); Carbon Dioxide 22 mmol/L (20-31)
[2024-04-03 03:14] LABS: BUN/Creatinine Ratio 19.2 (10.0-20.0); Blood Urea Nitrogen 29 mg/dL (9-23); Glucose 161 mg/dL (74-106)
[2024-04-03 03:15] LABS: Magnesium 1.8 mg/dL (1.6-2.6)
[2024-04-03 03:18] LABS: INR 1.09 (0.9-1.15); Prothrombin Time 11.5 sec (9.3-11.8)
[2024-04-03 03:24] LABS: Partial Thromboplastin Time 79.6 SEC (24.5-34.5)
[2024-04-03] MEDS: HEPARIN DRIP/D5W 100UNITS/ML 250 ML IV SCH ×3 (08:00→19:10)
[2024-04-03] MEDS: MUPIROCIN 2% OINT 15gm or 22gm FOR MRSA NARES EACHNOSTRI SCH (10:18)
[2024-04-03 10:58] LABS: INR 1.08 (0.9-1.15); Prothrombin Time 11.4 sec (9.3-11.8)
[2024-04-03 11:17] LABS: Partial Thromboplastin Time > 139.0 SEC (24.5-34.5)
[2024-04-03] MEDS: ACCU-CHEK COMFORT CURVE STRIP VI SCH (11:30)
--- NOTE | 2024-04-03 13:43 | DVHPN2 ---
Progress Note - Dictate Date Seen: Apr 03, 2024 Medical Necessity Reason Pt with a Central, PICC or Fol: Yes The following are medically ne: Perez Catheter Reason for perez catheter: Strict I&O Subjective PT WITH ELEVATED TROPONIN >29950 I WAS CALLED PT WAS IN AFIB RVR ISCHEMIC CM EF <20% S/P BiV AICD NOW WITH LEUKOCYTOSIS CXR INFILTARTIVE PROCESS WITH RESOLUTING CONSISTENT WITH ACUTE DECOMPENSATION OF HFrEF RESP FAILURE INTUBATED vital signs Vital Sign Date Time Temp Pulse Resp B/P (MAP) Pulse Ox O2 Delivery O2 Flow Rate FiO2 04/03/24 13:22 98.5 96 21 128/48 (74) 93 98.5 04/03/24 10:00 Nasal Cannula* 3 32 Total Intake and Output 04/02/24 04/02/24 04/03/24 15:00 23:00 07:00 Intake Total 673.090 ml 370.296 ml 612.296 ml Output Total 2150 ml 1300 ml Balance 673.090 ml -1779.704 ml -687.704 ml medications Current Medications Medications Dose Ordered Sig/Norah Route Start Time Stop Time Status Last Admin Dose Admin Albuterol 2.5 mg Q4HPRN PRN NEB 03/30/24 21:30 Ipratropium [place] 0.5 mg Q4HPRN PRN NEB 03/30/24 21:30 Digoxin 125 mcg DAILY IV 03/31/24 10:00 04/03/24 10:17 125 MCG Pantoprazole Sodium 40 mg DAILY IV 03/31/24 10:00 04/03/24 10:17 40 MG Insulin Human Regular IQ4HR SC 03/31/24 00:00 04/03/24 12:05 6 UNITS Dextrose 50 ml UD PRN IV 03/30/24 21:30 Sodium Chloride 10 ml Q8HR IV 03/30/24 22:00 04/03/24 05:40 10 ML Ondansetron HCl 4 mg Q4HP PRN IV 03/30/24 21:30 Doxycycline Hyclate 250 ml @ 125 mls/hr Q12H IV 03/30/24 22:00 04/03/24 10:15 125 MLS/HR Ibuprofen 400 mg Q4HP PRN GT 03/30/24 22:00 Nitroglycerin 0.4 mg Q5MINP PRN SL 03/30/24 23:15 Morphine Sulfate 2 mg Q30M PRN IV 03/30/24 23:15 Furosemide 20 mg DAILY IV 03/31/24 10:00 04/03/24 10:17 20 MG Amiodarone HCl 250 ml @ 16.667 mls/ hr Q15H IV 04/01/24 03:45 04/03/24 08:56 16.667 MLS/HR Dobutamine HCl/ Dextrose 250 ml @ 19.62 mls/ hr [id number] IV 04/01/24 03:15 04/03/24 08:37 19.62 MLS/HR Vancomycin HCl 0 ml @ 0 mls/hr UD IV 04/02/24 15:30 Mupirocin 1 applic BID EACHNOSTRI 04/03/24 10:00 04/08/24 09:59 04/03/24 10:18 1 APPLIC Diagnostic Test (Pha) 1 strip ACHS 04/03/24 11:30 04/03/24 11:30 1 STRIP Heparin Sodium/ Dextrose 250 ml @ 5 mls/hr Q24H IV 04/03/24 12:45 04/03/24 12:49 5 MLS/HR laboratory and microbiology Laboratory Tests 04/03/24 02:39 Test 04/03/24 02:39 Range/Units Serum Glucose 161 H 74-106 mg/dL Problem List HFrEF ACUTE ACUTE ISCHEMIC EVENT LEUKOCYTOSIS ANEMIA RENAL INSUFF CKD STAGE III RESP FAILURE AFIB RVR Assessment/Plan DOBUTAMINE AMIODARONE DRIP DIG INOTROPIC SUPPORT [facility] S/P EXTUBATION OFF ALL SEDATION START WEANING OF LEVOPHED CONSIDER [facility] IN AM Dietary Evaluation Review Comments: 1. Consider EN/TPN if NPO>7 days 2. Consider plan of care 3. Consider nepro TF goal rate of 35ml/hr to provide 1512kcal, 68g pro when medically appropriate Expected Outcomes/Goals: 1. Pt will consume >75% of estimated needs within 2-3 days Plan discussed with: Patient CHRISSIE EVERETT MD Apr 03, 2024 13:43
--- NOTE | 2024-04-03 15:18 | DVHPN2 ---
Subjective Seen and examined at bedside, patient is on 3L oxygen cont Abx, for LHC tomorrow. Changes from previous H/P or p: No Changes System Changes Unable to obtain, intubated Objective Vitals Vital Signs Date Time Temp Pulse Resp B/P (MAP) Pulse Ox O2 Delivery O2 Flow Rate FiO2 04/03/24 13:22 98.5 96 21 128/48 (74) 93 98.5 04/03/24 10:00 Nasal Cannula* 3 32 Intake/Output Intake and Output 04/03/24 07:00 Intake Total 1655.682 ml Output Total 3450 ml Balance -1794.318 ml Intake Oral 0 ml IV Total 1655.682 ml Output Urine Total 3450 ml Exam Gen: in bed NAD Cvs: R S1/S2 Resp: Creps, BLAE Abd: Soft Translation Director: AAO x 3 General Appearance: Other (Intubated and sedated) Cardiovascular: Other (Irregularly irregular) Medications Current Medications Medications Dose Ordered Sig/Norah Route Start Time Stop Time Status Last Admin Dose Admin Albuterol 2.5 mg Q4HPRN PRN NEB 03/30/24 21:30 Ipratropium [place] 0.5 mg Q4HPRN PRN NEB 03/30/24 21:30 Digoxin 125 mcg DAILY IV 03/31/24 10:00 04/03/24 10:17 125 MCG Pantoprazole Sodium 40 mg DAILY IV 03/31/24 10:00 04/03/24 10:17 40 MG Insulin Human Regular IQ4HR SC 03/31/24 00:00 04/03/24 12:05 6 UNITS Dextrose 50 ml UD PRN IV 03/30/24 21:30 Sodium Chloride 10 ml Q8HR IV 03/30/24 22:00 04/03/24 14:00 10 ML Ondansetron HCl 4 mg Q4HP PRN IV 03/30/24 21:30 Doxycycline Hyclate 250 ml @ 125 mls/hr Q12H IV 03/30/24 22:00 04/03/24 10:15 125 MLS/HR Ibuprofen 400 mg Q4HP PRN GT 03/30/24 22:00 Nitroglycerin 0.4 mg Q5MINP PRN SL 03/30/24 23:15 Morphine Sulfate 2 mg Q30M PRN IV 03/30/24 23:15 Furosemide 20 mg DAILY IV 03/31/24 10:00 04/03/24 10:17 20 MG Amiodarone HCl 250 ml @ 16.667 mls/ hr Q15H IV 04/01/24 03:45 04/03/24 08:56 16.667 MLS/HR Dobutamine HCl/ Dextrose 250 ml @ 19.62 mls/ hr [id number] IV 04/01/24 03:15 04/03/24 08:37 19.62 MLS/HR Vancomycin HCl 0 ml @ 0 mls/hr UD IV 04/02/24 15:30 Mupirocin 1 applic BID EACHNOSTRI 04/03/24 10:00 04/08/24 09:59 04/03/24 10:18 1 APPLIC Diagnostic Test (Pha) 1 strip ACHS 04/03/24 11:30 04/03/24 11:30 1 STRIP Heparin Sodium/ Dextrose 250 ml @ 5 mls/hr Q24H IV 04/03/24 12:45 04/03/24 12:49 5 MLS/HR Laboratory Results Laboratory Tests 04/03/24 02:39 Chemistry Test 04/03/24 02:39 Calcium Level 8.6 mg/dL (8.7-10.4) L Magnesium Level 1.8 mg/dL (1.6-2.6) Coagulation Test 04/02/24 21:19 04/03/24 02:39 04/03/24 10:04 Prothrombin Time 11.4 sec (9.3-11.8) 11.5 sec (9.3-11.8) 11.4 sec (9.3-11.8) Prothrombin Time INR 1.08 (0.9-1.15) 1.09 (0.9-1.15) 1.08 (0.9-1.15) Activated Partial Thromboplast Time 69.5 SEC (24.5-34.5) H 79.6 SEC (24.5-34.5) *H > 139.0 SEC (24.5-34.5) *H Cardiac Markers Test 04/03/24 02:39 B-Type Natriuretic Peptide 1722.92 pg/mL (0-100) Microbiology Microbiology Date/Time Source Procedure Growth Status 03/31/24 15:29 Nose MRSA Screen - Final Methicillin Resistant S.aureus Complete 03/30/24 20:40 Blood Blood Culture - Preliminary NO GROWTH AFTER 72 HOURS OF INCUBATION. Resulted 03/30/24 20:35 Sputum Gram Stain - Final Complete 03/30/24 20:35 Respiratory Culture - Final Methicillin Resistant S.aureus Complete Assessment/Plan Assessment/Plan # Acute on Chronic Resp Failure - on 3L oxygen # Cardiogenic Shock - On Dobutamine # LOURDES due to ATN - Monitor renal function, Nephro cx # Possible Sepsis due to MRSA PNA - On Doxy, Resume Vanco monitor due to renal impairment # Pulm Edema Plan discussed with: Patient, Other (Neice) My Orders Orders - BEVERLEY CAZARES MD Procedure Category Date Status Time Vancomycin Per PHA 04/02/24 In Process Pharmacy 15:30 Mupirocin 2% Oint PHA 04/03/24 In Process Mrsa Nares (Bactroban 10:00 Glucose Blood PHA 04/03/24 In Process (Accu-Chek Comfort 11:30 * Swallow Request ST 04/03/24 Transmitted 08:01 Vancomycin,Random LAB 04/04/24 Verified 04:00 Basic Metabolic Panel LAB 04/04/24 Verified 04:00 Pureed DIET 04/03/24 Transmitted Dinner Pt Request For Service PT 04/03/24 Logged 14:52 Oob To Chair [place] 04/03/24 Transmitted 15:14 Complete Blood Count LAB 04/04/24 Verified 04:00 Date of Service: Apr 03, 2024 Billing Provider: BEVERLEY CAZARES MD Common Visit Codes: [id number] INP/OBS CARE(HIGH) BEVERLEY CAZARES MD Apr 03, 2024 15:18
[2024-04-03 20:01] LABS: INR 1.06 (0.9-1.15); Partial Thromboplastin Time 32.2 SEC (24.5-34.5); Prothrombin Time 11.2 sec (9.3-11.8)
[2024-04-03] MEDS: HEPARIN SODIUM (PORCINE) 5000 UNITS/ML 1ML VIAL IV ONE (23:17)
[2024-04-04] VITALS (11 sets, daily range): BP systolic 124–162; BP diastolic 57–84; PULSE 88–104; RESP 16–24; TEMP 97.5–98.7; O2SAT 88–98
[2024-04-04] MEDS: IPRATROPIUM BROM 0.5 MG/2.5ML INH SOL NEB PRN (05:58)
[2024-04-04] MEDS: ALBUTEROL SULF 2.5 MG/0.5ML(0.5%) NEB SOLN NEB PRN (05:59)
[2024-04-04 06:20] LABS: INR 1.05 (0.9-1.15); Partial Thromboplastin Time 47.6 SEC (24.5-34.5); Prothrombin Time 11.1 sec (9.3-11.8)
[2024-04-04 06:26] LABS: Anion Gap 12 (5-15); Carbon Dioxide 23 mmol/L (20-31); Chloride 109 mmol/L (98-107); Potassium 3.4 mmol/L (3.5-5.1); Sodium 144 mmol/L (136-145)
[2024-04-04 06:27] LABS: Calcium 9.5 mg/dL (8.7-10.4)
[2024-04-04 06:32] LABS: BUN/Creatinine Ratio 18.2 (10.0-20.0); Blood Urea Nitrogen 26 mg/dL (9-23); Glucose 222 mg/dL (74-106)
[2024-04-04 06:41] LABS: Hematocrit 32.7 % (41.0-53.0); Hemoglobin 10.8 g/dL (13.5-17.5); Mean Corpuscular Hemoglobin 28.7 pg (28.0-32.0); Mean Corpuscular Hgb Conc. 32.9 g/dL (32.0-36.0); Mean Corpuscular Volume 87.2 fL (80.0-100.0); Platelet Count (auto) 293 10^3/uL (140-450); Red Blood Cells 3.75 10^6/uL (4.5-5.90); Red Cell Distribution Width 15.9 % (11.8-14.3); White Blood Cell 14.3 10^3/uL (4.4-10.8)
[2024-04-04] MEDS: HEPARIN DRIP/D5W 100UNITS/ML 250 ML IV SCH (06:54)
[2024-04-04 06:56] LABS: Band Neutrophils % (manual) 0; Basophils % (manual) 0 (0.0-2.0); Blast Cells 0; Metamyelocytes % 0; Myelocytes % 0; Promyelocytes % 0; Reactive Lymphocytes 0
[2024-04-04 09:12] LABS: Eosinophils % (manual) 1 (0-7); Lymphocytes % (manual) 10 (10.0-50.0); Monocytes % (manual) 5 (0-12)
[2024-04-04 09:13] LABS: Platelet Estimate Adequate
--- NOTE | 2024-04-04 10:44 | DVHPN2 ---
Subjective 3 L nasal cannula He is scheduled for heart catheterization today He is on heparin and amiodarone and dobutamine drips Changes from previous H/P or p: Changes Objective Vitals Vital Signs Date Time Temp Pulse Resp B/P (MAP) Pulse Ox O2 Delivery O2 Flow Rate FiO2 04/04/24 09:23 120/56 04/04/24 08:52 98.4 98 16 94 98.4 04/04/24 06:00 Nasal Cannula* 3 32 Intake/Output Intake and Output 04/04/24 07:00 Intake Total 1100.867 ml Output Total 2600 ml Balance -1499.133 ml Intake Oral 0 ml IV Total 1100.867 ml Output Urine Total 2600 ml General Appearance: Alert, Oriented X3, Cooperative, No acute distress Lungs: Clear to auscultation, Normal air movement Cardiovascular: Regular rate, Normal S1, Normal S2, Other (Irregularly irregular) Extremities: No edema Medications Current Medications Medications Dose Ordered Sig/Norah Route Start Time Stop Time Status Last Admin Dose Admin Albuterol 2.5 mg Q4HPRN PRN NEB 03/30/24 21:30 04/04/24 05:59 2.5 MG Ipratropium [place] 0.5 mg Q4HPRN PRN NEB 03/30/24 21:30 04/04/24 05:58 0.5 MG Digoxin 125 mcg DAILY IV 03/31/24 10:00 04/03/24 10:17 125 MCG Pantoprazole Sodium 40 mg DAILY IV 03/31/24 10:00 04/03/24 10:17 40 MG Insulin Human Regular IQ4HR SC 03/31/24 00:00 04/04/24 08:00 3 UNITS Dextrose 50 ml UD PRN IV 03/30/24 21:30 Sodium Chloride 10 ml Q8HR IV 03/30/24 22:00 04/04/24 06:16 10 ML Ondansetron HCl 4 mg Q4HP PRN IV 03/30/24 21:30 Doxycycline Hyclate 250 ml @ 125 mls/hr Q12H IV 03/30/24 22:00 04/03/24 23:17 125 MLS/HR Ibuprofen 400 mg Q4HP PRN GT 03/30/24 22:00 Nitroglycerin 0.4 mg Q5MINP PRN SL 03/30/24 23:15 Morphine Sulfate 2 mg Q30M PRN IV 03/30/24 23:15 Furosemide 20 mg DAILY IV 03/31/24 10:00 04/03/24 10:17 20 MG Amiodarone HCl 250 ml @ 16.667 mls/ hr Q15H IV 04/01/24 03:45 04/04/24 06:18 16.667 MLS/HR Dobutamine HCl/ Dextrose 250 ml @ 19.62 mls/ hr [id number] IV 04/01/24 03:15 04/04/24 09:23 19.62 MLS/HR Vancomycin HCl 0 ml @ 0 mls/hr UD IV 04/02/24 15:30 Mupirocin 1 applic BID EACHNOSTRI 04/03/24 10:00 04/08/24 09:59 04/03/24 22:00 1 APPLIC Diagnostic Test (Pha) 1 strip ACHS 04/03/24 11:30 04/04/24 06:18 1 STRIP Heparin Sodium/ Dextrose 250 ml @ 10 mls/hr Q24H IV 04/04/24 06:45 04/04/24 06:54 10 MLS/HR Laboratory Results Laboratory Tests 04/04/24 05:15 Chemistry Test 04/04/24 05:15 Calcium Level 9.5 mg/dL (8.7-10.4) Coagulation Test 04/03/24 19:00 04/04/24 05:15 Prothrombin Time 11.2 sec (9.3-11.8) 11.1 sec (9.3-11.8) Prothrombin Time INR 1.06 (0.9-1.15) 1.05 (0.9-1.15) Activated Partial Thromboplast Time 32.2 SEC (24.5-34.5) 47.6 SEC (24.5-34.5) H Microbiology Microbiology Date/Time Source Procedure Growth Status 03/31/24 15:29 Nose MRSA Screen - Final Methicillin Resistant S.aureus Complete 03/30/24 20:40 Blood Blood Culture - Preliminary NO GROWTH AFTER 72 HOURS OF INCUBATION. Resulted 03/30/24 20:35 Sputum Gram Stain - Final Complete 03/30/24 20:35 Respiratory Culture - Final Methicillin Resistant S.aureus Complete Assessment/Plan Assessment/Plan Acute hypoxic respiratory failure Chronic respiratory failure Acute kidney injury due to ATN Cardiogenic shock Pulmonary edema Acute on chronic reduced ejection fraction heart failure EF less than 20% COPD Type 2 diabetes Dyslipidemia Hypertension Coronary artery disease status post angioplasty for InStent stenosis NSTEMI AFib with RVR Status post BiV AICD Plan Amiodarone drip Heparin drip Dobutamine drip Levophed drip Sedation as needed with a prevent IV doxycycline GI prophylaxis: Protonix Lasix 20 mg IV daily Digoxin Heart catheterization today per Dr. Maldonado Amiodarone drip Heparin drip Dobutamine drip IV doxycycline The plan is to discharge the patient home on hospice in 1-2 days once he is stable off the drips Update: Heart cath was cancelled DC Heparin and amiodarone Start amiodarone po Continue dobutamine for now Start ASA and Plavix Plan to DC home on Hospice on 04/06/2024 Plan discussed with: Patient Date of Service: Apr 04, 2024 Billing Provider: NILSA PAULA MD Common Visit Codes: [id number] INP/OBS CARE(HIGH) NILSA PAULA MD Apr 04, 2024 10:44
[2024-04-04] MEDS: DOBUTamine 1000MCG/ML 250 ML IV SCH (11:00)
[2024-04-04 11:37] LABS: Urine Bacteria None Seen /hpf (None Seen)
[2024-04-04 11:54] LABS: Urine Blood TRACE /uL (Negative); Urine Clarity Turbid (Clear); Urine Color Yellow (Yellow); Urine Hyaline Cast FEW /lpf (0 - 2); Urine Mucus FEW (None Seen); Urine Protein, UAD 1+ (Negative); Urine Specific Gravity 1.017 (1.001-1.035); Urine Urobilinogen Normal (Negative); Urine WBC 9 /hpf (0 - 3)
--- NOTE | 2024-04-04 13:08 | DVHPN2 ---
Progress Note - Dictate Date Seen: Apr 04, 2024 Medical Necessity Reason Pt with a Central, PICC or Fol: Yes The following are medically ne: Perez Catheter Reason for perez catheter: Strict I&O Subjective PT WITH ELEVATED TROPONIN >[id number] I WAS CALLED PT WAS IN AFIB RVR ISCHEMIC CM EF <20% S/P BiV AICD NOW WITH LEUKOCYTOSIS CXR INFILTARTIVE PROCESS WITH RESOLUTING CONSISTENT WITH ACUTE DECOMPENSATION OF HFrEF RESP FAILURE INTUBATED vital signs Vital Sign Date Time Temp Pulse Resp B/P (MAP) Pulse Ox O2 Delivery O2 Flow Rate FiO2 04/04/24 11: 124/62 04/04/24 11: 98 04/04/24 08:52 98.4 16 94 98.4 04/04/24 08:05 Nasal Cannula* 3 32 Total Intake and Output 04/03/24 04/03/24 04/04/24 15:00 23:00 07:00 Intake Total 124.861 ml 464.009 ml 511.997 ml Output Total 1800 ml 800 ml Balance 124.861 ml -1335.991 ml -288.003 ml medications Current Medications Medications Dose Ordered Sig/Norah Route Start Time Stop Time Status Last Admin Dose Admin Albuterol 2.5 mg Q4HPRN PRN NEB 03/30/24 21:30 04/04/24 05:59 2.5 MG Ipratropium [place] 0.5 mg Q4HPRN PRN NEB 03/30/24 21:30 04/04/24 05:58 0.5 MG Digoxin 125 mcg DAILY IV 03/31/24 10:00 04/04/24 11:26 125 MCG Pantoprazole Sodium 40 mg DAILY IV 03/31/24 10:00 04/04/24 11:27 40 MG Insulin Human Regular IQ4HR SC 03/31/24 00:00 04/04/24 12:17 6 UNITS Dextrose 50 ml UD PRN IV 03/30/24 21:30 Sodium Chloride 10 ml Q8HR IV 03/30/24 22:00 04/04/24 06:16 10 ML Ondansetron HCl 4 mg Q4HP PRN IV 03/30/24 21:30 Doxycycline Hyclate 250 ml @ 125 mls/hr Q12H IV 03/30/24 22:00 04/04/24 11:26 125 MLS/HR Ibuprofen 400 mg Q4HP PRN GT 03/30/24 22:00 Nitroglycerin 0.4 mg Q5MINP PRN SL 03/30/24 23:15 Morphine Sulfate 2 mg Q30M PRN IV 03/30/24 23:15 Furosemide 20 mg DAILY IV 03/31/24 10:00 04/04/24 11:27 20 MG Amiodarone HCl 250 ml @ 16.667 mls/ hr Q15H IV 04/01/24 03:45 04/04/24 06:18 16.667 MLS/HR Vancomycin HCl 0 ml @ 0 mls/hr UD IV 04/02/24 15:30 Mupirocin 1 applic BID EACHNOSTRI 04/03/24 10:00 04/08/24 09:59 04/04/24 10:00 1 APPLIC Diagnostic Test (Pha) 1 strip ACHS 04/03/24 11:30 04/04/24 11:30 1 STRIP Heparin Sodium/ Dextrose 250 ml @ 10 mls/hr Q24H IV 04/04/24 06:45 04/04/24 06:54 10 MLS/HR Dobutamine HCl/ Dextrose 250 ml @ 19.62 mls/ hr [id number] IV 04/04/24 11:00 04/04/24 11:00 19.62 MLS/HR laboratory and microbiology Laboratory Tests 04/04/24 05:15 Test 04/04/24 05:15 Range/Units Serum Glucose 222 H 74-106 mg/dL Problem List HFrEF ACUTE ACUTE ISCHEMIC EVENT LEUKOCYTOSIS ANEMIA RENAL INSUFF CKD STAGE III RESP FAILURE AFIB RVR Assessment/Plan DOBUTAMINE AMIODARONE DRIP DIG INOTROPIC SUPPORT LHC S/P EXTUBATION OFF ALL SEDATION START WEANING OF LEVOPHED LHC CANCELED BECAUSE PT WAS BUMMED BY [employer] WILL TRY TO SCHEDULE AT A LATER DATE Dietary Evaluation Review Comments: 1. Consider EN/TPN if NPO>7 days 2. Consider plan of care 3. Consider nepro TF goal rate of 35ml/hr to provide 1512kcal, 68g pro when medically appropriate Expected Outcomes/Goals: 1. Pt will consume >75% of estimated needs within 2-3 days Plan discussed with: Patient Critical Care Time(min): 35 CHRISSIE EVERETT MD Apr 04, 2024 13:08
[2024-04-04 14:03] LABS: INR 1.12 (0.9-1.15); Partial Thromboplastin Time 67.4 SEC (24.5-34.5); Prothrombin Time 11.8 sec (9.3-11.8)
[2024-04-04] MEDS: VANCOMYCIN 500mg/100mL 100 ML IV ONE (14:14)
[2024-04-04] MEDS: ASPirin 81 mg TAB PO ONE (16:06)
[2024-04-04] MEDS: CLOPIDOGREL BISULFATE 75 MG TAB PO ONE (16:06)
[2024-04-04] MEDS: POTASSIUM CHL 20 Meq TABLET PO ONE (16:06)
[2024-04-04] MEDS: AMIODARONE HCL 200 MG TAB PO SCH (21:13)
[2024-04-05] VITALS (10 sets, daily range): BP systolic 114–149; BP diastolic 59–68; PULSE 101–116; RESP 17–19; TEMP 97.7–98.7; O2SAT 89–93
[2024-04-05 05:57] LABS: Potassium 3.5 mmol/L (3.5-5.1)
[2024-04-05 05:58] LABS: Anion Gap 14 (5-15); Calcium 9.1 mg/dL (8.7-10.4); Carbon Dioxide 21 mmol/L (20-31)
[2024-04-05 06:03] LABS: BUN/Creatinine Ratio 23.5 (10.0-20.0)
[2024-04-05 06:05] LABS: Blood Urea Nitrogen 32 mg/dL (9-23); Chloride 110 mmol/L (98-107); Glucose 135 mg/dL (74-106); Sodium 145 mmol/L (136-145)
[2024-04-05] MEDS: ASPirin 81 mg TAB PO SCH (08:57)
[2024-04-05] MEDS: CLOPIDOGREL BISULFATE 75 MG TAB PO SCH (08:58)
--- NOTE | 2024-04-05 09:29 | MEDREC ---
[facility] Intervention Section I [facility] Intervention: Review courses of therapy (SPUTUM CULTURE SHOWED MRSA, SO PATIENT HAS BEEN TREATED WITH VANCOMYCIN SINCE 04/02. HE ALSO HAS COPD WHICH HAS BEEN TREATED WITH DOXYCYCLINE SINCE 03/30, PLEASE CONSIDER D/C DOXYCYCLINE BECAUSE PATIENT HAS COMPLETED 7 DAY COURSE) CAREY LUU Apr 05, 2024 09:29
[2024-04-05] MEDS: VANCOMYCIN 750mg/150ml 150 ML IV ONE (11:35)
--- NOTE | 2024-04-05 12:53 | DVHPN2 ---
Subjective 3 L nasal cannula The heart catheterization was consult yesterday due to non availability and to the fact that the patient is going to go home on hospice anyway Amiodarone drip was changed to p.o. and heparin drip was discontinued He is still on dobutamine drip Changes from previous H/P or p: Changes Objective Vitals Vital Signs Date Time Temp Pulse Resp B/P (MAP) Pulse Ox O2 Delivery O2 Flow Rate FiO2 04/05/24 11:30 117/59 04/05/24 09:00 97.7 109 17 90 97.7 04/05/24 08:28 Nasal Cannula* 3 32 Intake/Output Intake and Output 04/05/24 07:00 Intake Total 2249.34 ml Output Total 1050 ml Balance 1199.34 ml Intake Oral 1355 ml IV Total 894.34 ml Output Urine Total 1050 ml General Appearance: Alert, Oriented X3, Cooperative, No acute distress Lungs: Clear to auscultation, Normal air movement Cardiovascular: Regular rate, Normal S1, Normal S2, Other (Irregularly irregular) Extremities: No edema Medications Current Medications Medications Dose Ordered Sig/Norah Route Start Time Stop Time Status Last Admin Dose Admin Albuterol 2.5 mg Q4HPRN PRN NEB 03/30/24 21:30 04/04/24 05:59 2.5 MG Ipratropium [place] 0.5 mg Q4HPRN PRN NEB 03/30/24 21:30 04/04/24 05:58 0.5 MG Digoxin 125 mcg DAILY IV 03/31/24 10:00 04/05/24 08:56 125 MCG Pantoprazole Sodium 40 mg DAILY IV 03/31/24 10:00 04/05/24 08:58 40 MG Insulin Human Regular IQ4HR SC 03/31/24 00:00 04/05/24 12:01 9 UNITS Dextrose 50 ml UD PRN IV 03/30/24 21:30 Sodium Chloride 10 ml Q8HR IV 03/30/24 22:00 04/05/24 12:41 10 ML Ondansetron HCl 4 mg Q4HP PRN IV 03/30/24 21:30 Doxycycline Hyclate 250 ml @ 125 mls/hr Q12H IV 03/30/24 22:00 04/05/24 08:55 125 MLS/HR Ibuprofen 400 mg Q4HP PRN GT 03/30/24 22:00 Nitroglycerin 0.4 mg Q5MINP PRN SL 03/30/24 23:15 Morphine Sulfate 2 mg Q30M PRN IV 03/30/24 23:15 Furosemide 20 mg DAILY IV 03/31/24 10:00 04/05/24 08:59 20 MG Vancomycin HCl 0 ml @ 0 mls/hr UD IV 04/02/24 15:30 Mupirocin 1 applic BID EACHNOSTRI 04/03/24 10:00 04/08/24 09:59 04/05/24 09:00 1 APPLIC Diagnostic Test (Pha) 1 strip ACHS 04/03/24 11:30 04/05/24 12:00 1 STRIP Dobutamine HCl/ Dextrose 250 ml @ 19.62 mls/ hr [id number] IV 04/04/24 11:00 04/05/24 11:30 19.62 MLS/HR Amiodarone HCl 200 mg Q12HR PO 04/04/24 22:00 04/05/24 08:58 200 MG Aspirin 81 mg DAILY PO 04/05/24 10:00 04/05/24 08:57 81 MG Clopidogrel Bisulfate 75 mg DAILY PO 04/05/24 10:00 04/05/24 08:58 75 MG Laboratory Results Laboratory Tests 04/04/24 05:15 04/05/24 05:22 Chemistry Test 04/05/24 05:22 Calcium Level 9.1 mg/dL (8.7-10.4) Coagulation Test 04/04/24 13:15 Prothrombin Time 11.8 sec (9.3-11.8) Prothrombin Time INR 1.12 (0.9-1.15) Activated Partial Thromboplast Time 67.4 SEC (24.5-34.5) H Urinalysis Test 04/04/24 07:30 Urine Color Yellow (Yellow) Urine Clarity Turbid (Clear) H Urine pH 5.0 (5.0-9.0) Urine Specific [place] 1.017 (1.001-1.035) Urine Protein 1+ (Negative) H Urine Ketones Negative (Negative) Urine Blood Trace /uL (Negative) H Urine Nitrite Negative (Negative) Urine Bilirubin Negative (Negative) Urine Urobilinogen Normal mg/dL (Negative) Urine Leukocyte Esterase Trace /uL (Negative) Urine RBC 53 /hpf (0 - 3) Urine WBC 9 /hpf (0 - 3) Urine Squamous Epithelial Cells None seen /hpf (<5) Urine Bacteria None seen /hpf (None Seen) Urine Hyaline Casts Few /lpf (0 - 2) Urine Mucus Few (None Seen) Urine Glucose Normal mg/dL (Normal) Microbiology Microbiology Date/Time Source Procedure Growth Status 03/31/24 15:29 Nose MRSA Screen - Final Methicillin Resistant S.aureus Complete 03/30/24 20:40 Blood Blood Culture - Final NO GROWTH AFTER 5 DAYS OF INCUBATION. Complete 03/30/24 20:35 Sputum Gram Stain - Final Complete 03/30/24 20:35 Respiratory Culture - Final Methicillin Resistant S.aureus Complete Assessment/Plan Assessment/Plan Acute hypoxic respiratory failure Chronic respiratory failure Acute kidney injury due to ATN Cardiogenic shock Pulmonary edema Acute on chronic reduced ejection fraction heart failure EF less than 20% COPD Type 2 diabetes Dyslipidemia Hypertension Coronary artery disease status post angioplasty for InStent stenosis NSTEMI AFib with RVR Status post BiV AICD Plan Amiodarone drip Heparin drip Dobutamine drip Levophed drip Sedation as needed with a prevent IV doxycycline GI prophylaxis: Protonix Lasix 20 mg IV daily Digoxin Heart catheterization today per Dr. Maldonado Amiodarone drip Heparin drip Dobutamine drip IV doxycycline The plan is to discharge the patient home on hospice in 1-2 days once he is stable off the drips Update: Heart cath was cancelled DC Heparin and amiodarone Start amiodarone po Continue dobutamine for now Start ASA and Plavix Plan to DC home on Hospice on 04/06/2024 04/05/2024: Continue dobutamine drip for now Continue aspirin and Plavix Amiodarone p.o. Lasix 20 mg IV Plan to discharge home tomorrow on hospice Plan discussed with: Patient My Orders Orders - NILSA PAULA MD Procedure Category Date Status Time Amiodarone Tablet PHA 04/04/24 In Process (Cordarone Tablet) 22:00 Aspirin Tablet PHA 04/05/24 In Process 10:00 Clopidogrel Bisulfate PHA 04/05/24 In Process (Plavix) 10:00 Date of Service: Apr 05, 2024 Billing Provider: NILSA PAULA MD Common Visit Codes: [id number] INP/OBS CARE(HIGH) NILSA PAULA MD Apr 05, 2024 12:53
[2024-04-06] VITALS (13 sets, daily range): BP systolic 31–138; BP diastolic 53–65; PULSE 89–109; RESP 15–20; TEMP 97.7–98.2; O2SAT 87–100
[2024-04-06] MEDS: InsuLIN REG 1unit/0.01ml Soln (100units/ml) ONE (09:38)
--- NOTE | 2024-04-06 12:14 | DVHPN2 ---
Subjective The patient seen and examined at bedside. Tired and sleepy Reviewed: Care Plan, H&P, Labs, Medications, Previous Orders, Radiology Changes from previous H/P or p: No Changes Objective Vitals Vital Signs Date Time Temp Pulse Resp B/P (MAP) Pulse Ox O2 Delivery O2 Flow Rate FiO2 04/06/24 10:02 108 04/06/24 09:58 133/62 04/06/24 09:00 97.7 18 91 97.7 04/06/24 08:52 Nasal Cannula* 4 36 Intake/Output Intake and Output 04/06/24 07:00 Intake Total 1575 ml Output Total 900 ml Balance 675 ml Intake Oral 925 ml IV Total 650 ml Output Urine Total 900 ml General Appearance: Alert, Oriented X3, Cooperative, No acute distress Lungs: Clear to auscultation, Normal air movement Cardiovascular: Regular rate, Normal S1, Normal S2, Other (Irregularly irregular) Extremities: No edema Medications Current Medications Medications Dose Ordered Sig/Norah Route Start Time Stop Time Status Last Admin Dose Admin Albuterol 2.5 mg Q4HPRN PRN NEB 03/30/24 21:30 04/06/24 08:52 2.5 MG Ipratropium [place] 0.5 mg Q4HPRN PRN NEB 03/30/24 21:30 04/06/24 08:52 0.5 MG Digoxin 125 mcg DAILY IV 03/31/24 10:00 04/06/24 10:02 125 MCG Pantoprazole Sodium 40 mg DAILY IV 03/31/24 10:00 04/06/24 09:56 40 MG Insulin Human Regular IQ4HR SC 03/31/24 00:00 04/06/24 09:30 3 UNITS Dextrose 50 ml UD PRN IV 03/30/24 21:30 Sodium Chloride 10 ml Q8HR IV 03/30/24 22:00 04/06/24 05:16 10 ML Ondansetron HCl 4 mg Q4HP PRN IV 03/30/24 21:30 Doxycycline Hyclate 250 ml @ 125 mls/hr Q12H IV 03/30/24 22:00 04/06/24 09:52 125 MLS/HR Ibuprofen 400 mg Q4HP PRN GT 03/30/24 22:00 Nitroglycerin 0.4 mg Q5MINP PRN SL 03/30/24 23:15 Morphine Sulfate 2 mg Q30M PRN IV 03/30/24 23:15 Furosemide 20 mg DAILY IV 03/31/24 10:00 04/06/24 09:58 20 MG Vancomycin HCl 0 ml @ 0 mls/hr UD IV 04/02/24 15:30 Mupirocin 1 applic BID EACHNOSTRI 04/03/24 10:00 04/08/24 09:59 04/06/24 10:03 1 APPLIC Diagnostic Test (Pha) 1 strip ACHS 04/03/24 11:30 04/06/24 09:29 1 STRIP Dobutamine HCl/ Dextrose 250 ml @ 19.62 mls/ hr [id number] IV 04/04/24 11:00 04/06/24 01:14 19.62 MLS/HR Amiodarone HCl 200 mg Q12HR PO 04/04/24 22:00 04/06/24 09:57 200 MG Aspirin 81 mg DAILY PO 04/05/24 10:00 04/06/24 09:57 81 MG Clopidogrel Bisulfate 75 mg DAILY PO 04/05/24 10:00 04/06/24 09:57 75 MG Laboratory Results Laboratory Tests 04/04/24 05:15 04/05/24 05:22 04/06/24 05:15 Urinalysis Test 04/04/24 07:30 Urine Color Yellow (Yellow) Urine Clarity Turbid (Clear) H Urine pH 5.0 (5.0-9.0) Urine Specific [place] 1.017 (1.001-1.035) Urine Protein 1+ (Negative) H Urine Ketones Negative (Negative) Urine Blood Trace /uL (Negative) H Urine Nitrite Negative (Negative) Urine Bilirubin Negative (Negative) Urine Urobilinogen Normal mg/dL (Negative) Urine Leukocyte Esterase Trace /uL (Negative) Urine RBC 53 /hpf (0 - 3) Urine WBC 9 /hpf (0 - 3) Urine Squamous Epithelial Cells None seen /hpf (<5) Urine Bacteria None seen /hpf (None Seen) Urine Hyaline Casts Few /lpf (0 - 2) Urine Mucus Few (None Seen) Urine Glucose Normal mg/dL (Normal) Microbiology Microbiology Date/Time Source Procedure Growth Status 03/31/24 15:29 Nose MRSA Screen - Final Methicillin Resistant S.aureus Complete 03/30/24 20:40 Blood Blood Culture - Final NO GROWTH AFTER 5 DAYS OF INCUBATION. 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 heart failure EF less than 20% COPD Type 2 diabetes Dyslipidemia Hypertension Coronary artery disease status post angioplasty for InStent stenosis NSTEMI AFib with RVR Status post BiV AICD Plan Continue: Heparin drip ,Dobutamine drip ,Levophed drip Continue with IV doxycycline GI prophylaxis: Protonix Lasix 20 mg IV daily Digoxin, Amiodarone PO, ASA and plavix Heart cath was cancelled by dr Mckay Will discharge the patient home on hospice in 1-2 days once he is stable off the drips Plan discussed with: Other (RN) Date of Service: Apr 06, 2024 Billing Provider: MOISES BIGGS MD Common Visit Codes: [id number] INP/OBS CARE(HIGH) MOISES BIGGS MD Apr 06, 2024 12:14
[2024-04-06] MEDS ORDERED: InsuLIN REG 1unit/0.01ml Soln (100units/ml) SC SCH (12:15)
[2024-04-06] MEDS: ACCU-CHEK COMFORT CURVE STRIP VI SCH (14:23)
[2024-04-06] MEDS: InsuLIN REG 1unit/0.01ml Soln (100units/ml) SC SCH ×2 (14:24→21:37)
[2024-04-06] MEDS: VANCOMYCIN 1GM/250ML KIT 200 ML IV ONE (18:37)
[2024-04-07] VITALS (13 sets, daily range): BP systolic 114–145; BP diastolic 55–67; PULSE 90–102; RESP 14–22; TEMP 97.3–98.3; O2SAT 91–97
--- NOTE | 2024-04-07 13:55 | DVHPN2 ---
Subjective The patient seen and examined at bedside. Sleepy and not answer question. Reviewed: Care Plan, H&P, Labs, Medications, Previous Orders, Radiology Changes from previous H/P or p: No Changes Objective Vitals Vital Signs Date Time Temp Pulse Resp B/P (MAP) Pulse Ox O2 Delivery O2 Flow Rate FiO2 04/07/24 12:51 97.4 102 20 131/59 (83) 94 97.4 04/07/24 08:00 Nasal Cannula* 3 32 Intake/Output Intake and Output 04/07/24 07:00 Intake Total 1425 ml Output Total 1000 ml Balance 425 ml Intake Oral 925 ml IV Total 500 ml Output Urine Total 1000 ml # Bowel Movements 2 General Appearance: Alert, Oriented X3, Cooperative, No acute distress Lungs: Clear to auscultation, Normal air movement Cardiovascular: Regular rate, Normal S1, Normal S2, Other (Irregularly irregular) Extremities: No edema Medications Current Medications Medications Dose Ordered Sig/Norah Route Start Time Stop Time Status Last Admin Dose Admin Albuterol 2.5 mg Q4HPRN PRN NEB 03/30/24 21:30 04/06/24 22:06 2.5 MG Ipratropium [place] 0.5 mg Q4HPRN PRN NEB 03/30/24 21:30 04/06/24 22:06 0.5 MG Digoxin 125 mcg DAILY IV 03/31/24 10:00 04/07/24 11:02 125 MCG Pantoprazole Sodium 40 mg DAILY IV 03/31/24 10:00 04/07/24 10:57 40 MG Dextrose 50 ml UD PRN IV 03/30/24 21:30 Sodium Chloride 10 ml Q8HR IV 03/30/24 22:00 04/07/24 06:01 10 ML Ondansetron HCl 4 mg Q4HP PRN IV 03/30/24 21:30 Doxycycline Hyclate 250 ml @ 125 mls/hr Q12H IV 03/30/24 22:00 04/07/24 10:57 125 MLS/HR Ibuprofen 400 mg Q4HP PRN GT 03/30/24 22:00 Nitroglycerin 0.4 mg Q5MINP PRN SL 03/30/24 23:15 Morphine Sulfate 2 mg Q30M PRN IV 03/30/24 23:15 Furosemide 20 mg DAILY IV 03/31/24 10:00 04/07/24 10:58 20 MG Vancomycin HCl 0 ml @ 0 mls/hr UD IV 04/02/24 15:30 Mupirocin 1 applic BID EACHNOSTRI 04/03/24 10:00 04/08/24 09:59 04/07/24 11:03 1 APPLIC Dobutamine HCl/ Dextrose 250 ml @ 19.62 mls/ hr [id number] IV 04/04/24 11:00 04/07/24 03:23 19.62 MLS/HR Amiodarone HCl 200 mg Q12HR PO 04/04/24 22:00 04/07/24 11:04 200 MG Aspirin 81 mg DAILY PO 04/05/24 10:00 04/07/24 11:03 81 MG Clopidogrel Bisulfate 75 mg DAILY PO 04/05/24 10:00 04/07/24 11:03 75 MG Diagnostic Test (Pha) 1 strip ACHS 04/06/24 12:15 04/07/24 11:58 1 STRIP Insulin Human Regular HS SC 04/06/24 22:00 04/06/24 21:37 3 UNITS Insulin Human Regular AC SC 04/06/24 12:30 04/07/24 11:59 6 UNITS Laboratory Results Laboratory Tests 04/04/24 05:15 04/05/24 05:22 04/07/24 05:13 Urinalysis Test 04/04/24 07:30 Urine Color Yellow (Yellow) Urine Clarity Turbid (Clear) H Urine pH 5.0 (5.0-9.0) Urine Specific [place] 1.017 (1.001-1.035) Urine Protein 1+ (Negative) H Urine Ketones Negative (Negative) Urine Blood Trace /uL (Negative) H Urine Nitrite Negative (Negative) Urine Bilirubin Negative (Negative) Urine Urobilinogen Normal mg/dL (Negative) Urine Leukocyte Esterase Trace /uL (Negative) Urine RBC 53 /hpf (0 - 3) Urine WBC 9 /hpf (0 - 3) Urine Squamous Epithelial Cells None seen /hpf (<5) Urine Bacteria None seen /hpf (None Seen) Urine Hyaline Casts Few /lpf (0 - 2) Urine Mucus Few (None Seen) Urine Glucose Normal mg/dL (Normal) Microbiology Microbiology Date/Time Source Procedure Growth Status 03/31/24 15:29 Nose MRSA Screen - Final Methicillin Resistant S.aureus Complete 03/30/24 20:40 Blood Blood Culture - Final NO GROWTH AFTER 5 DAYS OF INCUBATION. 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 heart failure EF less than 20% COPD Type 2 diabetes Dyslipidemia Hypertension Coronary artery disease status post angioplasty for InStent stenosis NSTEMI AFib with RVR Status post BiV AICD Plan Continue: Heparin drip ,Dobutamine drip ,Levophed drip Continue with IV doxycycline GI prophylaxis: Protonix Lasix 20 mg IV daily Digoxin, Amiodarone PO, ASA and plavix Heart cath was cancelled by dr Mckay Will discharge the patient home on hospice once he is stable off the drips Plan discussed with: Other (RN) My Orders Orders - MOISES BIGGS MD Procedure Category Date Status Time * [employer] CONS 04/06/24 Transmitted Consult Date of Service: Apr 07, 2024 Billing Provider: MOISES BIGGS MD Common Visit Codes: [id number] INP/OBS CARE(HIGH) MOISES BIGGS MD Apr 07, 2024 13:55
[2024-04-07] MEDS: VANCOMYCIN 750mg/150ml 150 ML IV ONE (17:57)
[2024-04-08] VITALS (9 sets, daily range): BP systolic 102–128; BP diastolic 48–86; PULSE 57–105; RESP 18–20; TEMP 97.3–98.6; O2SAT 86–100
[2024-04-08 05:42] LABS: Basophils # (auto) 0 10 ^3/uL (0-0.2); Basophils % (auto) 0.1 % (0.0-2.0); Eosinophils # (auto) 0 10 ^3/uL (0-0.8); Hematocrit 27.8 % (41.0-53.0); Hemoglobin 9.3 g/dL (13.5-17.5); Lymphocytes # (auto) 0.4 10 ^3/uL (0.4-5.4); Lymphocytes % (auto) 4.2 % (10.0-50.0); Mean Corpuscular Hemoglobin 29.4 pg (28.0-32.0); Mean Corpuscular Hgb Conc. 33.4 g/dL (32.0-36.0); Mean Corpuscular Volume 88.3 fL (80.0-100.0); Monocytes # (auto) 0.6 10 ^3/uL (0-1.3); Monocytes % (auto) 6.4 % (0.0-12.0); Neutrophils # (auto) 8.8 10 ^3/uL (1.6-8.6); Neutrophils % (auto) 89.3 % (37.0-80.0); Platelet Count (auto) 207 10^3/uL (140-450); Red Blood Cells 3.15 10^6/uL (4.5-5.90); Red Cell Distribution Width 15.7 % (11.8-14.3); White Blood Cell 9.8 10^3/uL (4.4-10.8)
--- NOTE | 2024-04-08 08:26 | DVHPN2 ---
Subjective The patient seen and examined at bedside. No complains today. Reviewed: Care Plan, H&P, Labs, Medications, Previous Orders, Radiology Changes from previous H/P or p: No Changes Objective Vitals Vital Signs Date Time Temp Pulse Resp B/P (MAP) Pulse Ox O2 Delivery O2 Flow Rate FiO2 04/08/24 05:00 97.8 105 18 128/86 (100) 99 97.8 04/07/24 21:34 Oxymizer 10 N/A Intake/Output Intake and Output 04/08/24 07:00 Intake Total 2635.44 ml Output Total 1052 ml Balance 1583.44 ml Intake Oral 1900 ml IV Total 735.44 ml Output Urine Total 1050 ml Stool Total 2 ml # Bowel Movements 1 General Appearance: Alert, Oriented X3, Cooperative, No acute distress Lungs: Clear to auscultation, Normal air movement Cardiovascular: Regular rate, Normal S1, Normal S2, Other (Irregularly irregular) Extremities: No edema Medications Current Medications Medications Dose Ordered Sig/Norah Route Start Time Stop Time Status Last Admin Dose Admin Albuterol 2.5 mg Q4HPRN PRN NEB 03/30/24 21:30 04/07/24 21:29 2.5 MG Ipratropium [place] 0.5 mg Q4HPRN PRN NEB 03/30/24 21:30 04/07/24 21:29 0.5 MG Digoxin 125 mcg DAILY IV 03/31/24 10:00 04/07/24 11:02 125 MCG Pantoprazole Sodium 40 mg DAILY IV 03/31/24 10:00 04/07/24 10:57 40 MG Dextrose 50 ml UD PRN IV 03/30/24 21:30 Sodium Chloride 10 ml Q8HR IV 03/30/24 22:00 04/08/24 05:49 10 ML Ondansetron HCl 4 mg Q4HP PRN IV 03/30/24 21:30 Doxycycline Hyclate 250 ml @ 125 mls/hr Q12H IV 03/30/24 22:00 04/07/24 22:16 125 MLS/HR Ibuprofen 400 mg Q4HP PRN GT 03/30/24 22:00 Nitroglycerin 0.4 mg Q5MINP PRN SL 03/30/24 23:15 Morphine Sulfate 2 mg Q30M PRN IV 03/30/24 23:15 Furosemide 20 mg DAILY IV 03/31/24 10:00 04/07/24 10:58 20 MG Vancomycin HCl 0 ml @ 0 mls/hr UD IV 04/02/24 15:30 Mupirocin 1 applic BID EACHNOSTRI 04/03/24 10:00 04/08/24 09:59 04/07/24 22:20 1 APPLIC Dobutamine HCl/ Dextrose 250 ml @ 19.62 mls/ hr [id number] IV 04/04/24 11:00 04/08/24 04:15 19.62 MLS/HR Amiodarone HCl 200 mg Q12HR PO 04/04/24 22:00 04/07/24 22:16 200 MG Aspirin 81 mg DAILY PO 04/05/24 10:00 04/07/24 11:03 81 MG Clopidogrel Bisulfate 75 mg DAILY PO 04/05/24 10:00 04/07/24 11:03 75 MG Diagnostic Test (Pha) 1 strip ACHS 04/06/24 12:15 04/07/24 07:00 1 STRIP Insulin Human Regular HS SC 04/06/24 22:00 04/06/24 21:37 3 UNITS Insulin Human Regular AC SC 04/06/24 12:30 04/08/24 05:49 6 UNITS Laboratory Results Laboratory Tests 04/05/24 05:22 04/08/24 05:21 Urinalysis Test 04/04/24 07:30 Urine Color Yellow (Yellow) Urine Clarity Turbid (Clear) H Urine pH 5.0 (5.0-9.0) Urine Specific [place] 1.017 (1.001-1.035) Urine Protein 1+ (Negative) H Urine Ketones Negative (Negative) Urine Blood Trace /uL (Negative) H Urine Nitrite Negative (Negative) Urine Bilirubin Negative (Negative) Urine Urobilinogen Normal mg/dL (Negative) Urine Leukocyte Esterase Trace /uL (Negative) Urine RBC 53 /hpf (0 - 3) Urine WBC 9 /hpf (0 - 3) Urine Squamous Epithelial Cells None seen /hpf (<5) Urine Bacteria None seen /hpf (None Seen) Urine Hyaline Casts Few /lpf (0 - 2) Urine Mucus Few (None Seen) Urine Glucose Normal mg/dL (Normal) Microbiology Microbiology Date/Time Source Procedure Growth Status 03/31/24 15:29 Nose MRSA Screen - Final Methicillin Resistant S.aureus Complete 03/30/24 20:40 Blood Blood Culture - Final NO GROWTH AFTER 5 DAYS OF INCUBATION. 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 heart failure EF less than 20% COPD Type 2 diabetes Dyslipidemia Hypertension Coronary artery disease status post angioplasty for InStent stenosis NSTEMI AFib with RVR Status post BiV AICD Plan Continue: Heparin drip ,Dobutamine drip ,Levophed drip Continue with IV doxycycline GI prophylaxis: Protonix Lasix 20 mg IV daily Digoxin, Amiodarone PO, ASA and plavix Heart cath was cancelled by dr Mckay Will discharge the patient home on hospice once he is stable off the drips Plan discussed with: Other (RN) Date of Service: Apr 08, 2024 Billing Provider: MOISES BIGGS MD Common Visit Codes: [id number] INP/OBS CARE(HIGH) MOISES BIGGS MD Apr 08, 2024 08:26
--- NOTE | 2024-04-08 09:29 | ECG ---
[facility] Test Date: 2024-03-31 Test Time: 21:00:14 Pat Name: MINDI ULLOA Department: Respiratoy Room: 0237T A Gender: M Call Center Support Representative: ASPEN : 1940 Requested By: OCNI NAIDU Order Number: [id number] Reading MD: Anabel Goins Measurements Intervals [place] Rate: 129 P: 0 WV: 0 QRS: -1 QRSD: 165 T: 145 QT: 364 QTc: 534 Interpretive Statements Afib/flut and V-paced complexes No further analysis attempted due to paced rhythm Electronically Signed On 04-09-2024 9:08:24 PST by Anabel Goins Please click the below link to view image of tracing.
[2024-04-08] MEDS: VANCOMYCIN 500mg/100mL 100 ML IV ONE (12:41)
[2024-04-09] VITALS (11 sets, daily range): BP systolic 125–142; BP diastolic 50–61; PULSE 63–90; RESP 16–20; TEMP 97.4–97.8; O2SAT 76–98
--- NOTE | 2024-04-09 09:24 | DVHPN2 ---
Progress Note - Dictate Date Seen: Apr 08, 2024 Medical Necessity Reason Pt with a Central, PICC or Fol: Yes The following are medically ne: Perez Catheter Reason for perez catheter: Strict I&O Subjective PT WITH ELEVATED TROPONIN >67916 I WAS CALLED PT WAS IN AFIB RVR ISCHEMIC CM EF <20% S/P BiV AICD NOW WITH LEUKOCYTOSIS CXR INFILTARTIVE PROCESS WITH RESOLUTING CONSISTENT WITH ACUTE DECOMPENSATION OF HFrEF RESP FAILURE INTUBATED vital signs Vital Sign Date Time Temp Pulse Resp B/P (MAP) Pulse Ox O2 Delivery O2 Flow Rate FiO2 04/09/24 06:51 96 Oxymizer 6.0 04/09/24 06:51 N/A 04/09/24 05:58 140/50 04/09/24 04:56 97.6 90 19 97.6 Total Intake and Output 04/08/24 04/08/24 04/09/24 15:00 23:00 07:00 Intake Total 290 ml 1030 ml 450 ml Output Total 400 ml 450 ml Balance 290 ml 630 ml 0 ml medications Current Medications Medications Dose Ordered Sig/Norah Route Start Time Stop Time Status Last Admin Dose Admin Albuterol 2.5 mg Q4HPRN PRN NEB 03/30/24 21:30 04/07/24 21:29 2.5 MG Ipratropium [place] 0.5 mg Q4HPRN PRN NEB 03/30/24 21:30 04/07/24 21:29 0.5 MG Digoxin 125 mcg DAILY IV 03/31/24 10:00 04/08/24 10:37 125 MCG Pantoprazole Sodium 40 mg DAILY IV 03/31/24 10:00 04/08/24 10:38 40 MG Dextrose 50 ml UD PRN IV 03/30/24 21:30 Sodium Chloride 10 ml Q8HR IV 03/30/24 22:00 04/09/24 05:58 10 ML Ondansetron HCl 4 mg Q4HP PRN IV 03/30/24 21:30 Doxycycline Hyclate 250 ml @ 125 mls/hr Q12H IV 03/30/24 22:00 04/08/24 21:42 125 MLS/HR Ibuprofen 400 mg Q4HP PRN GT 03/30/24 22:00 Nitroglycerin 0.4 mg Q5MINP PRN SL 03/30/24 23:15 Furosemide 20 mg DAILY IV 03/31/24 10:00 04/08/24 10:38 20 MG Vancomycin HCl 0 ml @ 0 mls/hr UD IV 04/02/24 15:30 Dobutamine HCl/ Dextrose 250 ml @ 19.62 mls/ hr [id number] IV 04/04/24 11:00 04/09/24 05:58 19.62 MLS/HR Amiodarone HCl 200 mg Q12HR PO 04/04/24 22:00 04/08/24 21:41 200 MG Aspirin 81 mg DAILY PO 04/05/24 10:00 04/08/24 10:40 81 MG Clopidogrel Bisulfate 75 mg DAILY PO 04/05/24 10:00 04/08/24 10:39 75 MG Diagnostic Test (Pha) 1 strip ACHS 04/06/24 12:15 04/09/24 06:43 1 STRIP Insulin Human Regular HS SC 04/06/24 22:00 04/06/24 21:37 3 UNITS Insulin Human Regular AC SC 04/06/24 12:30 04/09/24 06:05 3 UNITS laboratory and microbiology Laboratory Tests 04/09/24 06:14 04/08/24 05:21 04/05/24 05:22 Test 04/05/24 05:22 Range/Units Serum Glucose 135 H 74-106 mg/dL Problem List HFrEF ACUTE ACUTE ISCHEMIC EVENT LEUKOCYTOSIS ANEMIA RENAL INSUFF CKD STAGE III RESP FAILURE AFIB RVR Assessment/Plan DOBUTAMINE AMIODARONE DRIP DIG INOTROPIC SUPPORT LHC S/P EXTUBATION OFF ALL SEDATION START WEANING OF LEVOPHED LHC CANCELED BECAUSE PT WAS BUMMED BY [employer] OPERATOR WILL TRY TO SCHEDULE AT A LATER DATE WILL SCHEDULE LHC IN AM 04/10/24 Dietary Evaluation Review Comments: 1. Consider EN/TPN if NPO>7 days 2. Consider plan of care 3. Consider nepro TF goal rate of 35ml/hr to provide 1512kcal, 68g pro when medically appropriate Expected Outcomes/Goals: 1. Pt will consume >75% of estimated needs within 2-3 days Plan discussed with: Patient CHRISSIE EVERETT MD Apr 09, 2024 09:24
[2024-04-09] MEDS: VANCOMYCIN 500mg/100mL 100 ML IV ONE (13:00)
--- NOTE | 2024-04-09 13:58 | DVHPN2 ---
Subjective Seen and examined at bedside, patient is on 4L oxygen cont Abx, for LHC tomorrow. Titrate oxygen down, out of bed to chair Changes from previous H/P or p: No Changes Objective Vitals Vital Signs Date Time Temp Pulse Resp B/P (MAP) Pulse Ox O2 Delivery O2 Flow Rate FiO2 04/09/24 13:00 97.8 75 16 125/52 (76) 76 97.8 04/09/24 08:00 Oxymizer 6 N/A Intake/Output Intake and Output 04/09/24 07:00 Intake Total 1770 ml Output Total 850 ml Balance 920 ml Intake Oral 1520 ml IV Total 250 ml Output Urine Total 850 ml # Bowel Movements 1 Exam Gen: in bed NAD Cvs: R S1/S2 Resp: Creps, BLAE Abd: Soft Tack Cutter: AAO x 3 Medications Current Medications Medications Dose Ordered Sig/Norah Route Start Time Stop Time Status Last Admin Dose Admin Albuterol 2.5 mg Q4HPRN PRN NEB 03/30/24 21:30 04/07/24 21:29 2.5 MG Ipratropium [place] 0.5 mg Q4HPRN PRN NEB 03/30/24 21:30 04/07/24 21:29 0.5 MG Digoxin 125 mcg DAILY IV 03/31/24 10:00 04/09/24 10:14 125 MCG Pantoprazole Sodium 40 mg DAILY IV 03/31/24 10:00 04/09/24 10:13 40 MG Dextrose 50 ml UD PRN IV 03/30/24 21:30 Sodium Chloride 10 ml Q8HR IV 03/30/24 22:00 04/09/24 05:58 10 ML Ondansetron HCl 4 mg Q4HP PRN IV 03/30/24 21:30 Doxycycline Hyclate 250 ml @ 125 mls/hr Q12H IV 03/30/24 22:00 04/08/24 21:42 125 MLS/HR Ibuprofen 400 mg Q4HP PRN GT 03/30/24 22:00 Nitroglycerin 0.4 mg Q5MINP PRN SL 03/30/24 23:15 Furosemide 20 mg DAILY IV 03/31/24 10:00 04/09/24 10:15 20 MG Vancomycin HCl 0 ml @ 0 mls/hr UD IV 04/02/24 15:30 Dobutamine HCl/ Dextrose 250 ml @ 19.62 mls/ hr [id number] IV 04/04/24 11:00 04/09/24 05:58 19.62 MLS/HR Amiodarone HCl 200 mg Q12HR PO 04/04/24 22:00 04/09/24 10:15 200 MG Aspirin 81 mg DAILY PO 04/05/24 10:00 04/09/24 10:15 81 MG Clopidogrel Bisulfate 75 mg DAILY PO 04/05/24 10:00 04/09/24 10:15 75 MG Diagnostic Test (Pha) 1 strip ACHS 04/06/24 12:15 04/09/24 10:50 1 STRIP Insulin Human Regular HS SC 04/06/24 22:00 04/06/24 21:37 3 UNITS Insulin Human Regular AC SC 04/06/24 12:30 04/09/24 10:48 3 UNITS Laboratory Results Laboratory Tests 04/05/24 05:22 04/08/24 05:21 04/09/24 06:14 Urinalysis Test 04/04/24 07:30 Urine Color Yellow (Yellow) Urine Clarity Turbid (Clear) H Urine pH 5.0 (5.0-9.0) Urine Specific [place] 1.017 (1.001-1.035) Urine Protein 1+ (Negative) H Urine Ketones Negative (Negative) Urine Blood Trace /uL (Negative) H Urine Nitrite Negative (Negative) Urine Bilirubin Negative (Negative) Urine Urobilinogen Normal mg/dL (Negative) Urine Leukocyte Esterase Trace /uL (Negative) Urine RBC 53 /hpf (0 - 3) Urine WBC 9 /hpf (0 - 3) Urine Squamous Epithelial Cells None seen /hpf (<5) Urine Bacteria None seen /hpf (None Seen) Urine Hyaline Casts Few /lpf (0 - 2) Urine Mucus Few (None Seen) Urine Glucose Normal mg/dL (Normal) Microbiology Microbiology Date/Time Source Procedure Growth Status 03/31/24 15:29 Nose MRSA Screen - Final Methicillin Resistant S.aureus Complete 03/30/24 20:40 Blood Blood Culture - Final NO GROWTH AFTER 5 DAYS OF INCUBATION. Complete 03/30/24 20:35 Sputum Gram Stain - Final Complete 03/30/24 20:35 Respiratory Culture - Final Methicillin Resistant S.aureus Complete Assessment/Plan Assessment/Plan # Acute on Chronic Resp Failure - on 4-5L oxygen # Cardiogenic Shock - On Dobutamine # LOURDES due to ATN - Monitor renal function, Nephro cx # Possible Sepsis due to MRSA PNA - On Doxy, Resume Vanco monitor due to renal impairment # Pulm Edema # Deconditioned- PT Eval Plan discussed with: Patient My Orders Orders - BEVERLEY CAZARES MD Procedure Category Date Status Time Complete Blood Count LAB 04/10/24 Verified 04:00 Creatinine LAB 04/10/24 Verified 04:00 Vancomycin,Random LAB 04/10/24 Verified 04:00 Date of Service: Apr 09, 2024 Billing Provider: BEVERLEY CAZARES MD Common Visit Codes: [id number] INP/OBS CARE(HIGH) BEVERLEY CAZARES MD Apr 09, 2024 13:58
[2024-04-10] VITALS (14 sets, daily range): BP systolic 124–138; BP diastolic 52–65; PULSE 77–90; RESP 15–23; TEMP 97.4–99; O2SAT 93–100
[2024-04-10 06:56] LABS: Basophils # (auto) 0 10 ^3/uL (0-0.2); Basophils % (auto) 0.1 % (0.0-2.0); Eosinophils # (auto) 0 10 ^3/uL (0-0.8); Eosinophils % (auto) 0.3 % (0.0-7.0); Hematocrit 26.7 % (41.0-53.0); Hemoglobin 9.1 g/dL (13.5-17.5); Lymphocytes # (auto) 0.6 10 ^3/uL (0.4-5.4); Lymphocytes % (auto) 7.4 % (10.0-50.0); Mean Corpuscular Hemoglobin 29.3 pg (28.0-32.0); Mean Corpuscular Volume 86.1 fL (80.0-100.0); Monocytes # (auto) 0.4 10 ^3/uL (0-1.3); Monocytes % (auto) 5.4 % (0.0-12.0); Neutrophils # (auto) 6.6 10 ^3/uL (1.6-8.6); Neutrophils % (auto) 86.8 % (37.0-80.0); Nucleated Red Blood Cells % 0.3 %; Platelet Count (auto) 231 10^3/uL (140-450); Red Blood Cells 3.11 10^6/uL (4.5-5.90); Red Cell Distribution Width 15.8 % (11.8-14.3); White Blood Cell 7.6 10^3/uL (4.4-10.8)
[2024-04-10 07:12] LABS: Chloride 107 mmol/L (98-107); Sodium 143 mmol/L (136-145)
[2024-04-10 07:13] LABS: Anion Gap 11 (5-15); Calcium 9.3 mg/dL (8.7-10.4); Carbon Dioxide 25 mmol/L (20-31)
[2024-04-10 07:18] LABS: BUN/Creatinine Ratio 31.7 (10.0-20.0); Blood Urea Nitrogen 46 mg/dL (9-23); Glucose 131 mg/dL (74-106)
[2024-04-10 07:19] LABS: Magnesium 2.1 mg/dL (1.6-2.6)
--- NOTE | 2024-04-10 12:59 | DVHPN2 ---
Progress Note - Dictate Date Seen: Apr 10, 2024 Medical Necessity Reason Pt with a Central, PICC or Fol: Yes The following are medically ne: Perez Catheter Reason for perez catheter: Strict I&O Subjective PT WITH ELEVATED TROPONIN >25489 I WAS CALLED PT WAS IN AFIB RVR ISCHEMIC CM EF <20% S/P BiV AICD NOW WITH LEUKOCYTOSIS CXR INFILTARTIVE PROCESS WITH RESOLUTING CONSISTENT WITH ACUTE DECOMPENSATION OF HFrEF RESP FAILURE INTUBATED vital signs Vital Sign Date Time Temp Pulse Resp B/P (MAP) Pulse Ox O2 Delivery O2 Flow Rate FiO2 04/10/24 09:00 97.4 82 17 133/52 (79) 94 97.4 04/10/24 07:53 Nasal Cannula 4.0 04/10/24 07:53 36 Total Intake and Output 04/09/24 04/09/24 04/10/24 15:00 23:00 07:00 Intake Total 160 ml 960 ml 250 ml Output Total 350 ml 375 ml Balance 160 ml 610 ml -125 ml medications Current Medications Medications Dose Ordered Sig/Norah Route Start Time Stop Time Status Last Admin Dose Admin Albuterol 2.5 mg Q4HPRN PRN NEB 03/30/24 21:30 04/07/24 21:29 2.5 MG Ipratropium [place] 0.5 mg Q4HPRN PRN NEB 03/30/24 21:30 04/07/24 21:29 0.5 MG Digoxin 125 mcg DAILY IV 03/31/24 10:00 04/10/24 08:51 125 MCG Pantoprazole Sodium 40 mg DAILY IV 03/31/24 10:00 04/10/24 08:49 40 MG Dextrose 50 ml UD PRN IV 03/30/24 21:30 Sodium Chloride 10 ml Q8HR IV 03/30/24 22:00 04/10/24 06:24 10 ML Ondansetron HCl 4 mg Q4HP PRN IV 03/30/24 21:30 Doxycycline Hyclate 250 ml @ 125 mls/hr Q12H IV 03/30/24 22:00 04/10/24 08:50 125 MLS/HR Ibuprofen 400 mg Q4HP PRN GT 03/30/24 22:00 Nitroglycerin 0.4 mg Q5MINP PRN SL 03/30/24 23:15 Furosemide 20 mg DAILY IV 03/31/24 10:00 04/10/24 08:49 20 MG Vancomycin HCl 0 ml @ 0 mls/hr UD IV 04/02/24 15:30 Dobutamine HCl/ Dextrose 250 ml @ 19.62 mls/ hr [id number] IV 04/04/24 11:00 04/10/24 07:50 19.62 MLS/HR Amiodarone HCl 200 mg Q12HR PO 04/04/24 22:00 04/10/24 08:49 200 MG Aspirin 81 mg DAILY PO 04/05/24 10:00 04/10/24 08:50 81 MG Clopidogrel Bisulfate 75 mg DAILY PO 04/05/24 10:00 04/10/24 08:49 75 MG Diagnostic Test (Pha) 1 strip ACHS 04/06/24 12:15 04/10/24 07:04 1 STRIP Insulin Human Regular HS SC 04/06/24 22:00 04/09/24 23:14 3 UNITS Insulin Human Regular AC SC 04/06/24 12:30 04/10/24 07:05 2 UNITS laboratory and microbiology Laboratory Tests 04/10/24 05:32 Test 04/10/24 05:32 Range/Units Serum Glucose 131 H 74-106 mg/dL Problem List HFrEF ACUTE ACUTE ISCHEMIC EVENT LEUKOCYTOSIS ANEMIA RENAL INSUFF CKD STAGE III RESP FAILURE AFIB RVR Assessment/Plan DOBUTAMINE AMIODARONE DRIP DIG INOTROPIC SUPPORT LHC S/P EXTUBATION OFF ALL SEDATION START WEANING OF LEVOPHED LHC CANCELED BECAUSE PT WAS BUMMED BY PROFESSIONAL NURSING TUTOR WILL TRY TO SCHEDULE AT A LATER DATE WILL SCHEDULE LHC IN AM 04/10/24 ONCE AGAIN PROFESSIONAL NURSING TUTOR IS NOT ACCOMMODATING PT EVEN THOUGH I SCHEDULED THE CASES YESTERDAY IT WAS NOT SCHEDULED IN THE PROFESSIONAL NURSING TUTOR / THEY SAY IT SOME KIND OF GLITCH Dietary Evaluation Review Comments: 1. Consider EN/TPN if NPO>7 days 2. Consider plan of care 3. Consider nepro TF goal rate of 35ml/hr to provide 1512kcal, 68g pro when medically appropriate Expected Outcomes/Goals: 1. Pt will consume >75% of estimated needs within 2-3 days Plan discussed with: Patient CHRISSIE EVERETT MD Apr 10, 2024 12:59
--- NOTE | 2024-04-10 14:54 | DVHOP ---
DATE OF SURGERY: 04/10/2024 PROCEDURES PERFORMED: * Abdominal aortography. * Angioplasty with shockwave thrombectomy of the right iliac and right common femoral artery with a 6.0 x 60 mm Shockwave thrombectomy balloon. There was in-stent restenosis. Conscious sedation was given. PROCEDURE: The patient was prepped and draped under sterile condition. Xylocaine 1% used to anesthetize the right groin. Using Cook needle, right femoral artery was engaged with Seldinger technique, a 6-Sudanese sheath in the right femoral artery. We had a hard time getting through the iliac to do left heart catheterization. Therefore, we had to revascularize the ostial right iliac prior to left heart catheterization. Using a [employer] glide catheter, a [employer] PT extra support wire was able to be managed to get across the lesion. Then, a 6 mm x 60 mm Shockwave thrombectomy balloon was used to thrombectomize the ostial iliac, proximal iliac, as well as the proximal common femoral. Two inflations were done. There were no complications. The patient tolerated the procedure. Thus, the patient with in-stent restenosis with heavy calcification of the ostium. Now status post balloon angioplasty as well as shockwave thrombectomy with less than 10% residual stenosis. We were able to proceed with coronary angiography once the iliac was revascularized. Joel Pappas MD SA/BEN/MARK TID: [id number] RECEIPT: [id number]
--- NOTE | 2024-04-10 14:58 | DVHOP ---
DATE OF SURGERY: 04/10/2024 PROCEDURE TO BE PERFORMED: * Selective left and right coronary angiography. * Ventriculogram. INDICATIONS: The patient with history of myocardial infarction, marked elevation in troponin, [place] [address]. EKG did not show any acute changes. PERTINENT MEDICAL HISTORY: Significant for ischemic and dilated cardiomyopathy, EF less than 20%, status post Bi-V AICD implantation. The patient also has severe peripheral vascular disease, underwent angioplasty, stent placement to the iliac in the past as well as angioplasty of the right coronary artery with stent placement. It appears as though the patient may have an acute infarction and now the patient is to undergo coronary angiography. We had to delay the procedure because of the patient's instability, and EKG did not show any acute changes. An echocardiogram failed to demonstrate any significant reduction in left ventricular ejection fraction. However, he is a very poor candidate, high risk for any kind of intervention. It took a while for us to discuss whether the patient should undergo coronary angiography because of overall morbidity, age and because the patient's poor outcome, but after a lengthy discussion, family wants at least an angiogram to be done. PROCEDURES PERFORMED: * Selective left and right coronary angiography. * Ventriculogram. * Conscious sedation. DESCRIPTION OF PROCEDURE: The patient was prepped and draped in a sterile condition. 1% Xylocaine used to anesthetize the right groin. Using a Cook needle, the right femoral artery was engaged with Seldinger technique, a 6-N[place]ien sheath in the right femoral artery. The patient had a distal common iliac and common femoral artery heavy calcification, difficult to negotiate any catheters through the calcification and the stent. Therefore, we had to do angioplasty with thrombectomy with shockwave device, 6 mm x 60 mm shockwave was then deployed to revascularize the proximal/ostial right iliac through the stent and then the proximal common femoral arteries as well. Following the intervention, we were able to advance catheters through the narrow JR4 diagnostic catheter followed by we chose to use an XB 3.5 guide catheter. Ventriculogram was performed using a 6-[place]ien pigtail catheter. There were no complications. The patient tolerated the procedure well. Right femoral arteriotomy site was closed using the Angio-Seal device, although it was heavily calcified we were able to close it. RESULTS: * Left main, patent. * Left anterior descending artery without any flow restrictive lesion. * Circumflex once again without any flow restrictive lesion. * Right coronary artery previous site of stent placement was patent without any flow restrictive lesion. * Left ventricular function was markedly diminished with EF of less than 10% with an LVEDP elevated at 20 mmHg with no gradient across the aortic valve. Thus, the patient with dilated and ischemic cardiomyopathy, EF less than 20%; however, the patient has no discrete lesion for any intervention at this time. There is no occlusion noted as well. Thus, the patient had elevated troponin, but no evidence for any acute closure was demonstrated by coronary angiography. We will continue to follow the patient. Joel Pappas MD SA/ZINA TID: [id number] RECEIPT: [id number]
--- NOTE | 2024-04-10 15:29 | DVHPN2 ---
Subjective Seen and examined at bedside, patient is on 4L oxygen cont Abx, s/p LHC today. No intervention. BUt patient did need Right Iliac Thrombectomy. DC with hospice home tomorrow. Changes from previous H/P or p: No Changes Objective Vitals Vital Signs Date Time Temp Pulse Resp B/P (MAP) Pulse Ox O2 Delivery O2 Flow Rate FiO2 04/10/24 14:50 90 17 130/53 (78) 94 04/10/24 09:00 97.4 97.4 04/10/24 07:53 Nasal Cannula 4.0 04/10/24 07:53 36 Intake/Output Intake and Output 04/10/24 07:00 Intake Total 1370 ml Output Total 725 ml Balance 645 ml Intake Oral 1370 ml Output Urine Total 725 ml # Bowel Movements 1 Exam Gen: in bed NAD Cvs: R S1/S2 Resp: Creps, BLAE Abd: Soft Lease Buyer: AAO x 3 Medications Current Medications Medications Dose Ordered Sig/Norah Route Start Time Stop Time Status Last Admin Dose Admin Albuterol 2.5 mg Q4HPRN PRN NEB 03/30/24 21:30 04/07/24 21:29 2.5 MG Ipratropium [place] 0.5 mg Q4HPRN PRN NEB 03/30/24 21:30 04/07/24 21:29 0.5 MG Digoxin 125 mcg DAILY IV 03/31/24 10:00 04/10/24 08:51 125 MCG Pantoprazole Sodium 40 mg DAILY IV 03/31/24 10:00 04/10/24 08:49 40 MG Dextrose 50 ml UD PRN IV 03/30/24 21:30 Sodium Chloride 10 ml Q8HR IV 03/30/24 22:00 04/10/24 06:24 10 ML Ondansetron HCl 4 mg Q4HP PRN IV 03/30/24 21:30 Doxycycline Hyclate 250 ml @ 125 mls/hr Q12H IV 03/30/24 22:00 04/10/24 08:50 125 MLS/HR Ibuprofen 400 mg Q4HP PRN GT 03/30/24 22:00 Nitroglycerin 0.4 mg Q5MINP PRN SL 03/30/24 23:15 Furosemide 20 mg DAILY IV 03/31/24 10:00 04/10/24 08:49 20 MG Vancomycin HCl 0 ml @ 0 mls/hr UD IV 04/02/24 15:30 Dobutamine HCl/ Dextrose 250 ml @ 19.62 mls/ hr [id number] IV 04/04/24 11:00 04/10/24 07:50 19.62 MLS/HR Amiodarone HCl 200 mg Q12HR PO 04/04/24 22:00 04/10/24 08:49 200 MG Aspirin 81 mg DAILY PO 04/05/24 10:00 04/10/24 08:50 81 MG Clopidogrel Bisulfate 75 mg DAILY PO 04/05/24 10:00 04/10/24 08:49 75 MG Diagnostic Test (Pha) 1 strip ACHS 04/06/24 12:15 04/10/24 07:04 1 STRIP Insulin Human Regular HS SC 04/06/24 22:00 04/09/24 23:14 3 UNITS Insulin Human Regular AC SC 04/06/24 12:30 04/10/24 07:05 2 UNITS Laboratory Results Laboratory Tests 04/10/24 05:32 Chemistry Test 04/10/24 05:32 Calcium Level 9.3 mg/dL (8.7-10.4) Magnesium Level 2.1 mg/dL (1.6-2.6) Cardiac Markers Test 04/10/24 05:32 B-Type Natriuretic Peptide 3514.70 pg/mL (0-100) Urinalysis Test 04/04/24 07:30 Urine Color Yellow (Yellow) Urine Clarity Turbid (Clear) H Urine pH 5.0 (5.0-9.0) Urine Specific [place] 1.017 (1.001-1.035) Urine Protein 1+ (Negative) H Urine Ketones Negative (Negative) Urine Blood Trace /uL (Negative) H Urine Nitrite Negative (Negative) Urine Bilirubin Negative (Negative) Urine Urobilinogen Normal mg/dL (Negative) Urine Leukocyte Esterase Trace /uL (Negative) Urine RBC 53 /hpf (0 - 3) Urine WBC 9 /hpf (0 - 3) Urine Squamous Epithelial Cells None seen /hpf (<5) Urine Bacteria None seen /hpf (None Seen) Urine Hyaline Casts Few /lpf (0 - 2) Urine Mucus Few (None Seen) Urine Glucose Normal mg/dL (Normal) Microbiology Microbiology Date/Time Source Procedure Growth Status 03/31/24 15:29 Nose MRSA Screen - Final Methicillin Resistant S.aureus Complete 03/30/24 20:40 Blood Blood Culture - Final NO GROWTH AFTER 5 DAYS OF INCUBATION. Complete 03/30/24 20:35 Sputum Gram Stain - Final Complete 03/30/24 20:35 Respiratory Culture - Final Methicillin Resistant S.aureus Complete Assessment/Plan Assessment/Plan # Acute on Chronic Resp Failure - on 4-5L oxygen # Cardiogenic Shock - On Dobutamine # LOURDES due to ATN - Monitor renal function, Nephro cx # Possible Sepsis due to MRSA PNA - On Doxy, Resume Vanco monitor due to renal impairment # Pulm Edema # Deconditioned- PT Eval Plan discussed with: Patient My Orders Orders - BEVERLEY CAZARES MD Procedure Category Date Status Time Vancomycin,Random LAB 04/11/24 Verified 04:00 Basic Metabolic Panel LAB 04/11/24 Verified 04:00 Furosemide Injection PHA 04/10/24 Verified (Lasix Injection) 22:00 Potassium Effervesent PHA 04/10/24 Verified Tab (Klor-Con/Ef) 15:30 Date of Service: Apr 10, 2024 Billing Provider: BEVERLEY CAZARES MD Common Visit Codes: [id number] INP/OBS CARE(HIGH) BEVERLEY CAZARES MD Apr 10, 2024 15:29
[2024-04-10] MEDS: POTASSIUM CHLORIDE 40 MEQ, LIDOCAINE 1% (LOCAL ANESTH.) 4 ML in SODIUM CHL 0.9% 250 ML IV ONE (15:30)
[2024-04-10] MEDS: VANCOMYCIN 500mg/100mL 100 ML IV ONE (17:40)
[2024-04-10] MEDS: POTASSIUM EFFERVESENT TAB 25 MEQ PO ONE (17:42)
[2024-04-10] MEDS: FUROSEMIDE 20 MG/2 ML VIAL IV SCH (21:52)
[2024-04-11] VITALS (7 sets, daily range): BP systolic 130–155; BP diastolic 50–60; PULSE 80–94; RESP 18–22; TEMP 98.3–98.8; O2SAT 88–100
[2024-04-11 05:46] LABS: Anion Gap 10 (5-15); Carbon Dioxide 27 mmol/L (20-31); Chloride 106 mmol/L (98-107); Potassium 3.8 mmol/L (3.5-5.1); Sodium 143 mmol/L (136-145)
[2024-04-11 05:47] LABS: Calcium 9.5 mg/dL (8.7-10.4)
[2024-04-11 05:52] LABS: BUN/Creatinine Ratio 30.2 (10.0-20.0)
[2024-04-11 06:42] LABS: Blood Urea Nitrogen 45 mg/dL (9-23); Glucose 182 mg/dL (74-106)
[2024-04-11] MEDS: IODIXANOL 320MG/ML 100ML BTL IV ONE (08:40)
[2024-04-11] MEDS: HEPARIN IN NS 1000Units/500mL 1,500 ML ONE (08:40)
[2024-04-11] MEDS: MIDAZOLAM HCL 2MG/2ML 2ml VIAL (1mg/ml) ONE (08:41)
[2024-04-11] MEDS: SODIUM CHL 0.9% 50 ML ONE (08:41)
[2024-04-11] MEDS: fentaNYL CITRATE 100 MCG/2 ML VL ONE (08:41)
[2024-04-11] MEDS: LIDOCAINE 2%HCL (LOCAL ANESTH.) INJ 20ML MDV ONE (08:41)
[2024-04-11] MEDS: ANGIOMAX 250 MG VIAL IV ONE (08:42)
--- NOTE | 2024-04-11 08:42 | DVHDS2 ---
Discharge Summary Date of Admission Mar 30, 2024 at 23:03 Date of Discharge: Apr 11, 2024 Admitting Diagnosis Cardiogenic Shock Labs/Diagnostic Data: Laboratory Results Test 04/11/24 06:42 04/11/24 05:09 04/10/24 05:32 04/04/24 13:15 POC Glucose 173 mg/dl (70-106) Sodium Level 143 mmol/L (136-145) Potassium Level 3.8 mmol/L (3.5-5.1) Chloride Level 106 mmol/L (98-107) Carbon Dioxide Level 27 mmol/L (20-31) Anion Gap 10 (5-15) Blood Urea Nitrogen 45 mg/dL (9-23) Creatinine 1.49 mg/dL (0.700-1.30) Glomerular Filtration Rate Calc 46 mL/min (>90) BUN/Creatinine Ratio 30.2 (10.0-20.0) Serum Glucose 182 mg/dL (74-106) Calcium Level 9.5 mg/dL (8.7-10.4) Magnesium Level 2.0 mg/dL (1.6-2.6) Random Vancomycin Level 18.6 ug/mL (5-10) White Blood Count 7.6 10^3/uL (4.4-10.8) Red Blood Count 3.11 10^6/uL (4.5-5.90) Hemoglobin 9.1 g/dL (13.5-17.5) Hematocrit 26.7 % (41.0-53.0) Mean Corpuscular Volume 86.1 fL (80.0-100.0) Mean Corpuscular Hemoglobin 29.3 pg (28.0-32.0) Mean Corpuscular Hemoglobin Concent 34.0 g/dL (32.0-36.0) Red Cell Distribution Width 15.8 % (11.8-14.3) Platelet Count 231 10^3/uL (140-450) Mean Platelet Volume 7.5 fL (6.9-10.8) Neutrophils (%) (Auto) 86.8 % (37.0-80.0) Lymphocytes (%) (Auto) 7.4 % (10.0-50.0) Monocytes (%) (Auto) 5.4 % (0.0-12.0) Eosinophils (%) (Auto) 0.3 % (0.0-7.0) Basophils (%) (Auto) 0.1 % (0.0-2.0) Neutrophils # (Auto) 6.6 10 ^3/uL (1.6-8.6) Lymphocytes # (Auto) 0.6 10 ^3/uL (0.4-5.4) Monocytes # (Auto) 0.4 10 ^3/uL (0-1.3) Eosinophils # (Auto) 0 10 ^3/uL (0-0.8) Basophils # (Auto) 0 10 ^3/uL (0-0.2) Nucleated Red Blood Cells 0.3 % B-Type Natriuretic Peptide 3514.70 pg/mL (0-100) Prothrombin Time 11.8 sec (9.3-11.8) Prothrombin Time INR 1.12 (0.9-1.15) Activated Partial Thromboplast Time 67.4 SEC (24.5-34.5) Test 04/04/24 07:30 04/04/24 05:15 04/02/24 12:48 04/02/24 08:05 Urine Color Yellow (Yellow) Urine Clarity Turbid (Clear) Urine pH 5.0 (5.0-9.0) Urine Specific [place] 1.017 (1.001-1.035) Urine Protein 1+ (Negative) Urine Ketones Negative (Negative) Urine Blood Trace /uL (Negative) Urine Nitrite Negative (Negative) Urine Bilirubin Negative (Negative) Urine Urobilinogen Normal mg/dL (Negative) Urine Leukocyte Esterase Trace /uL (Negative) Urine RBC 53 /hpf (0 - 3) Urine WBC 9 /hpf (0 - 3) Urine Squamous Epithelial Cells None seen /hpf (<5) Urine Bacteria None seen /hpf (None Seen) Urine Hyaline Casts Few /lpf (0 - 2) Urine Mucus Few (None Seen) Urine Glucose Normal mg/dL (Normal) Differential Total Cells Counted 100.0 (100) Neutrophils % (Manual) 84 (37.0-80.0) Band Neutrophils % (Manual) 0 Lymphocytes % (Manual) 10 (10.0-50.0) Monocytes % (Manual) 5 (0-12) Eosinophils % (Manual) 1 (0-7) Basophils % (Manual) 0 (0.0-2.0) Metamyelocytes % (manual) 0 Myelocytes % (Manual) 0 Promyelocytes % (Manual) 0 Blast Cells % (Manual) 0 Reactive Lymphocytes 0 Platelet Estimate Adequate Blood Gas Specimen Type Arterial Blood Gas Sample Site Right radial Blood Gas Patient Temperature 37.0 Arterial Blood Date Drawn [id number] Arterial Blood pH 7.405 (7.350-7.450) Arterial Blood Partial Pressure CO2 32.2 mmHg (35.0-48.0) Arterial Blood Partial Pressure O2 99.7 mmHg (83.0-108.0) Arterial Blood HCO3 19.7 mmol/L (21.0-28.0) Arterial Blood Oxygen Saturation 97.0 % (94.0-98.0) Arterial Blood Base Excess -4.2 mmol/L (-2.0-3.0) Arterial Blood Oxyhemoglobin 96.4 % (94.0-98.0) Arterial Blood Carboxyhemoglobin 0.1 % (0.5-1.5) Arterial Blood Methemoglobin 0.5 % (0.0-1.5) Jd Test Modified Blood Gas Total Hemoglobin 10.50 g/dL (13.5-17.5) Blood Gas Modality Vent - cpap FiO2 % 30.0 Blood Gas Pressure Support 8 Blood Gas PEEP or CPAP 5.0 Blood Gas Set Respiration Rate 24.0 Blood Gas Tidal Volume 500.0 Test 04/02/24 05:03 03/31/24 09:59 03/31/24 06:33 03/30/24 22:33 Total Bilirubin 0.4 mg/dL (0.2-1.0) Aspartate Amino Transferase (AST) 57 U/L (13-40) Alanine Aminotransferase (ALT) 115 U/L (7-40) Alkaline Phosphatase 107 U/L (46-116) Total Protein 5.3 g/dL (5.7-8.2) Albumin 3.1 g/dL (3.2-4.8) Troponin I High Sensitivity > 60791 ng/L (</=54) Blood Gas Critical Value Read Back Yes Blood Gas Notified Whom Blood Gas Notified Time [id number] Blood Gas Notified By Remote Sensing Analyst garfield Lactic Acid Level 2.8 mmol/L (0.4-2.0) Test 03/30/24 22:05 Blood Gas Spontaneous Rate 20 Other Laboratory Tests 04/11/24 05:09 12/3/24 05:32 Brief Hx & Hospital Course: The patient is a 83-year-old male with past medical history of Coronary artery disease, CHF, COPD, DM, hyperlipidemia, [place], and hypertension who presented to [facility] ED with complaint of chest pain. Patient's symptoms progressively get worse with shortness of breaths, hypotensive, episodes of nonsustained VT. Patient underwent selective left and right coronary angiography, ventriculogram, thrombectomy of the ostial RCA because of in stent restenosis; status post angiography with stent placement of the Stent restenosis with a 3.5 x 26 mm [place] stent, Angioplasty with thrombectomy of the ramus branch and stents x 2; 3.0 x 26 and a 3.0 x 12 mm stents were placed in the ramus branch. Earlier today, patient started having chest pain, when paramedics arrived on the scene, patient was diaphoretic, SVTs, and was given Adenosine 6mg, 6mg and 12 mg but was unsuccessful in converting it, so patient was shocked 3x while en route to the ER, but patient still remained on SVT upon arrival, and subsequently intubated. Patient was later extubated, taken to the Cardiac label paster, no interventions. EF <10%. Will discharge with hospice per patients recommendations. Condition at Discharge: Poor Final Diagnosis/Problems List # Acute on Chronic Resp Failure # Cardiogenic Shock # LOURDES due to ATN # Possible Sepsis due to MRSA PNA # Pulm Edema # Deconditioned- PT Eval Discharge Disposition: Hospice - Home Discharge Instruct/Medications Diet: Cardiac 2g Na,low cholest Activity: Light activity Discharge Statement: "Patient was advised to return to the ER or call 911 if any headaches, dizziness, shortness of breath, chest pain, abdominal pain, bleeding, fevers, or worsening of medical condition. Patient was counseled about treatment plan, medications, possible side effects, patientverbalized understanding. All questions were answered to the best of my ability. This discharge took greater then 30 minutes in planning, reviewing documentation, counseling the patient, and discussing with other team members." ASSESSMENT ASSESSMENT Assessment Date of Service: Apr 11, 2024 Billing Provider: BEVERLEY CAZARES MD Common Visit Codes: [id number] DISCH DAY >30min BEVERLEY CAZARES MD Apr 11, 2024 08:42
[2024-04-11] MEDS: DOBUTamine 1000MCG/ML 250 ML IV ONE (08:43)
--- NOTE | 2024-04-11 09:57 | DVHPN2 ---
Progress Note - Dictate Date Seen: Apr 11, 2024 Medical Necessity Reason Pt with a Central, PICC or Fol: Yes The following are medically ne: Perez Catheter Reason for perez catheter: Strict I&O Subjective PT WITH ELEVATED TROPONIN >53608 I WAS CALLED PT WAS IN AFIB RVR ISCHEMIC CM EF <20% S/P BiV AICD NOW WITH LEUKOCYTOSIS CXR INFILTARTIVE PROCESS WITH RESOLUTING CONSISTENT WITH ACUTE DECOMPENSATION OF HFrEF RESP FAILURE INTUBATED vital signs Vital Sign Date Time Temp Pulse Resp B/P (MAP) Pulse Ox O2 Delivery O2 Flow Rate FiO2 04/11/24 07:56 98.3 86 20 155/50 (85) 96 98.3 04/11/24 07:19 Nasal Cannula* 5 40 Total Intake and Output 04/10/24 04/10/24 04/11/24 15:00 23:00 07:00 Intake Total 160 ml 860 ml 1050 ml Output Total 500 ml 900 ml Balance 160 ml 360 ml 150 ml medications Current Medications Medications Dose Ordered Sig/[place]ah Route Start Time Stop Time Status Last Admin Dose Admin Albuterol 2.5 mg Q4HPRN PRN NEB 03/30/24 21:30 04/11/24 07:19 2.5 MG Ipratropium [place] 0.5 mg Q4HPRN PRN NEB 03/30/24 21:30 04/11/24 07:19 0.5 MG Digoxin 125 mcg DAILY IV 03/31/24 10:00 04/10/24 08:51 125 MCG Pantoprazole Sodium 40 mg DAILY IV 03/31/24 10:00 04/10/24 08:49 40 MG Dextrose 50 ml UD PRN IV 03/30/24 21:30 Sodium Chloride 10 ml Q8HR IV 03/30/24 22:00 04/11/24 05:44 10 ML Ondansetron HCl 4 mg Q4HP PRN IV 03/30/24 21:30 Doxycycline Hyclate 250 ml @ 125 mls/hr Q12H IV 03/30/24 22:00 04/10/24 21:54 125 MLS/HR Ibuprofen 400 mg Q4HP PRN GT 03/30/24 22:00 Nitroglycerin 0.4 mg Q5MINP PRN SL 03/30/24 23:15 Vancomycin HCl 0 ml @ 0 mls/hr UD IV 04/02/24 15:30 Amiodarone HCl 200 mg Q12HR PO 04/04/24 22:00 04/10/24 21:52 200 MG Aspirin 81 mg DAILY PO 04/05/24 10:00 04/10/24 08:50 81 MG Clopidogrel Bisulfate 75 mg DAILY PO 04/05/24 10:00 04/10/24 08:49 75 MG Diagnostic Test (Pha) 1 strip ACHS 04/06/24 12:15 04/11/24 06:47 1 STRIP Insulin Human Regular HS SC 04/06/24 22:00 04/09/24 23:14 3 UNITS Insulin Human Regular AC SC 04/06/24 12:30 04/11/24 06:47 3 UNITS Furosemide 20 mg BID IV 04/10/24 22:00 04/10/24 21:52 20 MG laboratory and microbiology Laboratory Tests 04/11/24 05:09 04/10/24 05:32 Test 04/11/24 05:09 Range/Units Serum Glucose 182 H 74-106 mg/dL Problem List HFrEF ACUTE ACUTE ISCHEMIC EVENT LEUKOCYTOSIS ANEMIA RENAL INSUFF CKD STAGE III RESP FAILURE AFIB RVR Assessment/Plan DOBUTAMINE AMIODARONE DRIP DIG INOTROPIC SUPPORT LHC S/P EXTUBATION OFF ALL SEDATION START WEANING OF LEVOPHED LHC CANCELED BECAUSE PT WAS BUMMED BY ENTRY LEVEL FINANCE WILL TRY TO SCHEDULE AT A LATER DATE WILL SCHEDULE LHC IN AM 04/10/24 ONCE AGAIN ENTRY LEVEL FINANCE IS NOT ACCOMMODATING PT EVEN THOUGH I SCHEDULED THE CASES YESTERDAY IT WAS NOT SCHEDULED IN THE ENTRY LEVEL FINANCE / THEY SAY IT SOME KIND OF GLITCH S/P LHC NO EVIDENCE FOR ANY ACUTE CORONARY EVENT * Left main, patent. * Left anterior descending artery without any flow restrictive lesion. * Circumflex once again without any flow restrictive lesion. * Right coronary artery previous site of stent placement was patent without any flow restrictive lesion. * Left ventricular function was markedly diminished with EF of less than 10% with an LVEDP elevated at 20 mmHg with no gradient across the aortic valve. MAY DC HOME Dietary Evaluation Review Comments: 1. Consider EN/TPN if NPO>7 days 2. Consider plan of care 3. Consider nepro TF goal rate of 35ml/hr to provide 1512kcal, 68g pro when medically appropriate Expected Outcomes/Goals: 1. Pt will consume >75% of estimated needs within 2-3 days Plan discussed with: Patient Critical Care Time(min): 35 CHRISSIE EVERETT MD Apr 11, 2024 09:57
== END 2024-04-11 12:48 | disposition hospice, home (50) | DRG 853 ==
LOC: EDBD 20:00 → ER 20:00 → TELE 23:03 → DOU IN ICU 03-31 15:18 → ICU CENTRL 03-31 17:22 → TELE-EAST 04-03 11:23
PROVIDERS: ADMIT Nurse Practitioner Family; ATTEND Internal Medicine
PROC: 0BH17EZ Insertion of Endotracheal Airway into Trachea, Via Natural or Artificial Opening (ICD-10-PCS; 2024-03-29)
PROC: 5A1945Z Respiratory Ventilation, 24-96 Consecutive Hours (ICD-10-PCS; 2024-03-29)
PROC: 04CK3ZZ Extirpation of Matter from Right Femoral Artery, Percutaneous Approach (ICD-10-PCS; principal; 2024-04-10)
PROC: 04CC3ZZ Extirpation of Matter from Right Common Iliac Artery, Percutaneous Approach (ICD-10-PCS; 2024-04-10)
PROC: 4A023N7 Measurement of Cardiac Sampling and Pressure, Left Heart, Percutaneous Approach (ICD-10-PCS; 2024-04-10)
PROC: B2111ZZ Fluoroscopy of Multiple Coronary Arteries using Low Osmolar Contrast (ICD-10-PCS; 2024-04-10)
PROC: B2151ZZ Fluoroscopy of Left Heart using Low Osmolar Contrast (ICD-10-PCS; 2024-04-10)
PROC: B4101ZZ Fluoroscopy of Abdominal Aorta using Low Osmolar Contrast (ICD-10-PCS; 2024-04-10)
DX: A41.02 Sepsis due to Methicillin resistant Staphylococcus aureus (principal); I21.4 Non-ST elevation (NSTEMI) myocardial infarction; I50.23 Acute on chronic systolic (congestive) heart failure; J96.21 Acute and chronic respiratory failure with hypoxia; N17.0 Acute kidney failure with tubular necrosis; R57.0 Cardiogenic shock; J96.22 Acute and chronic respiratory failure with hypercapnia; J15.212 Pneumonia due to Methicillin resistant Staphylococcus aureus; E87.20 Acidosis, unspecified; I47.10 Supraventricular tachycardia, unspecified; J44.1 Chronic obstructive pulmonary disease with (acute) exacerbation; I13.0 Hypertensive heart and chronic kidney disease with heart failure and stage 1 through stage 4 chronic kidney disease, or unspecified chronic kidney disease; J44.0 Chronic obstructive pulmonary disease with (acute) lower respiratory infection; I42.0 Dilated cardiomyopathy; T82.855A Stenosis of coronary artery stent, initial encounter; E11.65 Type 2 diabetes mellitus with hyperglycemia; E78.5 Hyperlipidemia, unspecified; I25.10 Atherosclerotic heart disease of native coronary artery without angina pectoris; D64.9 Anemia, unspecified; E11.51 Type 2 diabetes mellitus with diabetic peripheral angiopathy without gangrene; E11.22 Type 2 diabetes mellitus with diabetic chronic kidney disease; I25.5 Ischemic cardiomyopathy; I48.91 Unspecified atrial fibrillation; N18.30 Chronic kidney disease, stage 3 unspecified; Z88.0 Allergy status to penicillin; Z82.0 Family history of epilepsy and other diseases of the nervous system; Z80.9 Family history of malignant neoplasm, unspecified; Z87.891 Personal history of nicotine dependence; Z98.61 Coronary angioplasty status; Y84.8 Other medical procedures as the cause of abnormal reaction of the patient, or of later complication, without mention of misadventure at the time of the procedure; Y92.89 Other specified places as the place of occurrence of the external cause
CPT/HCPCS: 34201; 36245; 36415; 36600; 71045; 80048; 80053; 80202; 81001; 82565; 82805; 82962; 83605; 83735; 83880; 84132; 84484; 85007; 85025; 85027; 85610; 85730; 86850; 86900; 86901; 87040; 87070; 87077; 87081; 87186; 87205; 92610; 93005; 93458; 94002; 94003; 94640; 97110; 97116; 97163; 97530; 99152; 99291; C1874; G0378; J1815; J2003; J2250; J2470; J2704; J3490; J7060; Q9967